=== PATIENT | male | born 1960 | race Caucasian/White ===

== ENCOUNTER 2017-08-11 13:52 | Emergency (ER) | payer OTHER, SELFPAY | END 2017-08-11 16:11 | disposition home or self-care (01) | PROVIDERS: Emergency Provider Emergency Medicine; PCP Internal Medicine; Visit Provider Emergency Medicine | DX: J41.1 Mucopurulent chronic bronchitis (principal) | CPT/HCPCS: 71010; 71045; 80053; 83880; 84484; 85025; 85610; 85730; 93005; 93010; 94640; 94664; 96374; 99058; 99284; J2930; J7613 ==

== ENCOUNTER 2017-11-06 12:38 | Emergency (ER) | payer OTHER, SELFPAY ==
[2017-11-06 12:45] VITALS: BP 196/92; PULSE 99; RESP 18; TEMP 36.9; O2SAT 99
--- NOTE | 2017-11-06 13:12 | ED.MALEGU ---
HPI - Male Genitourinary General Chief complaint: Urogenital-Male Stated complaint: RIGHT FLANK PAIN,THINKS KIDNEY STONES Time Seen by Provider: 11/06/17 12:47 Source: patient Mode of arrival: ambulatory Limitations: no limitations History of Present Illness HPI Narrative: Patient is a 57-year-old male with a stated history of multiple kidney stones (greater than 60) in his life. He states that on his last CT scan he had multiple renal stones. He states that he has had right-sided pain consistent with prior kidney stones for the past 10 days. Has been taking Advil at home with only minimal relief. He states that this morning he urinated and had hesitancy and worsening of the pain. He states this feels just like his prior kidney stones. No fevers. He has had to have lithotripsy and retrieval in the past. He states his last kidney stone that he passed was in July this year. Related Data Home Medications Medication Instructions Recorded Confirmed docusate sodium 250 mg PO QDAY #0 08/03/17 indomethacin 75 mg PO BID #0 08/03/17 lactulose 10 gm PO PRN PRN #0 08/03/17 omeprazole magnesium [Prilosec OTC] 20 mg PO QDAY #0 08/03/17 oxycodone-acetaminophen [Percocet] 2 PO AMCC #0 08/03/17 Previous Rx's Medication Instructions Recorded albuterol sulfate [Ventolin HFA] 0 puff INH Q4HP PRN #1 ea 08/11/17 doxycycline hyclate 100 mg PO Q12H #14 cap 08/11/17 prednisone 40 mg PO Q DAY 4 Days #0 tab 08/11/17 ketorolac 10 mg PO Q4-6H PRN #16 tab 11/06/17 Allergies Allergy/AdvReac Type Severity Reaction Status Date / Time No Known Drug Allergies Allergy Verified 11/06/17 12:48 Review of Systems Constitutional Denies fatigue, Denies fever(s) and Denies headache(s) ENT Ears, Nose, Mouth, and Throat: Denies vertigo and Denies headache(s) Cardiovascular Denies chest pain, Denies syncope and Denies dyspnea Respiratory Denies dyspnea Gastrointestinal Gastrointestinal: Denies abdominal pain, Denies constipation, Denies diarrhea, Denies nausea and Denies vomiting Genitourinary Reports dysuria, Reports flank pain, Reports urinary hesitancy, Denies urinary incontinence and Reports urinary urgency Musculoskeletal Denies myalgias and Denies arthralgias Integumentary/Breasts Denies lesions and Denies rash Neurologic Denies vertigo, Denies syncope and Denies headache(s) Endocrine Denies fatigue Hematologic/Lymphatic Denies easy bleeding and Denies easy bruising [facility] Social History Smoking Status: Current every day smoker Exam Initial Vital Signs Initial Vital Signs: Vital Signs Temperature 98.5 F 11/06/17 12:45 Pulse Rate 99 H 11/06/17 12:45 Respiratory Rate 18 11/06/17 12:45 Blood Pressure 196/92 H 11/06/17 12:45 Pulse Oximetry 99 11/06/17 12:45 Const General: cooperative and healthy appearing Orientation: alert, awake and oriented x3 HENMT Head: normal to inspection, normocephalic and atraumatic Resp Effort & Inspection: normal respiratory effort Auscultation: clear to auscultation bilaterally Cardio Rate: regular rate Rhythm: regular rhythm GI Inspection: normal to inspection and non-distended Palpation: soft, No firm and No tender Back/Spine/Pelvis Back: CVA tenderness right Skin General: no rashes or lesions noted Lesions: no lesions Rashes: no rashes Neuro General: alert, awake and oriented x3 Cognition: normal cognition Speech: speech normal Extrem General: normal to inspection and capillary refill normal Psych Appearance: grossly normal and well kempt Course Orders Ordered: ED Orders 11/06/17 13:00 Basic Metabolic Panel Stat Discontinued Medications Lidocaine HCl 5.4 ml/ Sodium (Chloride) 55.4 mls @ 332.4 mls/hr IV NOW ONE Stop: 11/06/17 12:50 Last Infusion: 11/06/17 13:51 Dose: 0 mls/hr Admin: 11/06/17 13:22 Dose: 332.4 mls/hr Sodium Chloride (Normal Saline 0.9%) 1,000 mls @ 1,000 mls/hr IV BOLUS ONE Stop: 11/06/17 13:49 Last Admin: 11/06/17 13:22 Dose: 1,000 mls/hr Ketorolac Tromethamine (Toradol) 30 mg IV NOW ONE Stop: 11/06/17 13:25 Last Admin: 11/06/17 13:50 Dose: 30 mg Vital Signs - 8 hr 11/06/17 12:45 11/06/17 13:39 Temperature 98.5 F Pulse Rate 99 H 67 Respiratory Rate 18 12 Blood Pressure 196/92 H Blood Pressure [Left Arm] 157/81 H Pulse Oximetry 99 97 MDM - Male Genitourinary Lab Data Attestation: I reviewed the patient's lab results. Result diagrams: 11/06/17 13:00 Lab Results 11/06/17 Range/Units 13:00 Sodium 143 (137-145) mmol/L Potassium 4.1 (3.4-5.1) mmol/L Chloride 107 (98-107) mmol/L Carbon Dioxide 27 (22-32) mmol/L BUN 19 (9-20) mg/dL Creatinine 1.00 (0.66-1.25) mg/dL Estimated GFR > 60.0 (>60) mL/min BUN/Creatinine Ratio 19.0 (6-22) Glucose 122 H (70-100) mg/dL Calcium 9.5 (8.4-10.2) mg/dL [facility] Narrative Medical decision making narrative: Patient reports a great improvement of his pain after the lidocaine and the Toradol. Creatinine is unremarkable. Urine shows no signs of infection. Patient states that he has had problems with opioids in the past. He was requesting the oral Toradol. He states he can get a follow-up with his primary doctor this week. He was given return precautions. He expressed understanding and agreement with plan. Discharge Plan Departure Patient Disposition: Home, Self-Care Clinical Impression: Renal colic Instructions: Kidney Stones (Alternative Therapy), DI for Kidney Stones Activity Restrictions/Additional Instructions: Take all of the medication as directed. Call your primary care doctor for a follow-up this week. Return to the emergency department for any new symptoms, fevers, inability to urinate, uncontrolled pain, or any other concerning symptoms. Prescriptions: New ketorolac 10 mg tablet 10 mg PO Q4-6H PRN (Reason: pain) Qty: 16 RF: 0 No Action oxycodone-acetaminophen [Percocet] 7.5 MG/325 MG tablet 2 PO AMCC Qty: 0 RF: 0 docusate sodium 250 MG capsule 250 mg PO QDAY Qty: 0 RF: 0 indomethacin 75 MG capsule, extended release 75 mg PO BID Qty: 0 RF: 0 lactulose 10 GM/15 ML solution 10 gm PO PRN PRNQty: 0 RF: 0 omeprazole magnesium [Prilosec OTC] 20 MG tablet,delayed release (DR/EC) 20 mg PO QDAY Qty: 0 RF: 0 doxycycline hyclate 100 MG capsule 100 mg PO Q12H Qty: 14 RF: 0 prednisone 20 MG tablet 40 mg PO Q DAY 4 Days Qty: 0 RF: 0 albuterol sulfate [Ventolin HFA] 90 MCG/PUFF HFA aerosol inhaler INH Q4HP PRNQty: 1 RF: 0
[2017-11-06 13:14] LABS: Blood Urea Nitrogen 19 mg/dL (9-20); Calcium 9.5 mg/dL (8.4-10.2); Carbon Dioxide 27 mmol/L (22-32); Chloride 107 mmol/L (98-107); Estimated Glomerular Filt Rate > 60.0 mL/min (>60); Glucose 122 mg/dL (70-100); HEMOLYSIS < 15 (0-50); Potassium 4.1 mmol/L (3.4-5.1); Sodium 143 mmol/L (137-145)
[2017-11-06] MEDS: SODIUM CHLORIDE 0.9% 1,000 ML 1000 ML IV (13:22)
[2017-11-06] MEDS: LIDOCAINE 2% 5.4 ML in SODIUM CHLORIDE 0.9% 50 ML 332.4 ML IV (13:22)
[2017-11-06 13:39] VITALS: BP 157/81; PULSE 67; RESP 12; O2SAT 97
[2017-11-06] MEDS: KETOROLAC 60 MG/2 ML VIAL 30 MG IV (13:50)
--- NOTE | 2017-11-06 13:55 | PC.NURSE ---
pain re-assessed -06/04
[2017-11-06 14:30] VITALS: BP 162/84; PULSE 72; RESP 17; O2SAT 96
[2017-11-06 14:35] VITALS: BP 162/84; PULSE 79; RESP 12; O2SAT 97
== END 2017-11-06 14:30 | disposition home or self-care (01) ==
PROVIDERS: Emergency Provider Emergency Medicine; PCP Internal Medicine
DX: N23 Unspecified renal colic (principal)
CPT/HCPCS: 36591; 80048; 81003; 96361; 96365; 96375; 99283; 99284; J1885

== ENCOUNTER 2017-11-14 12:53 | Emergency (ER) | payer OTHER, SELFPAY ==
[2017-11-14 12:57] VITALS: BP 166/90; PULSE 82; RESP 18; TEMP 36.9; O2SAT 99; BMI 24.4
--- NOTE | 2017-11-14 13:04 | DI.RAD.S_ITS ---
PROCEDURE: XR CHEST 2V INDICATIONS: chest pain TECHNIQUE: 2 views of the chest were acquired. COMPARISON: [facility], CHEST 1 VIEW, 08/11/2017, 14:17. [facility], CHEST 1 VIEW, 08/24/2016, 1:40. FINDINGS: Surgical changes and devices: None. Lungs and pleura: No pleural effusions or pneumothorax. Lungs are clear. Mediastinum: Mediastinal contours are normal. Heart size is normal. Bones and chest wall: No suspicious bony abnormalities. Soft tissues appear unremarkable. IMPRESSION: No radiographic evidence of acute cardiopulmonary pathology. Dictated by: Darrell Rai M.D. on 11/14/2017 at 13:20 Approved by: Darrell Rai M.D. on 11/14/2017 at 13:21
[2017-11-14 13:44] LABS: Add Manual Diff / Slide Review NO; Basophils Percent Auto 0.7 % (0-2); Eosinophils Percent Auto 1.5 % (2-4); Hematocrit 43.5 % (41-53); Hemoglobin 15.3 g/dL (13.5-17.5); Lymphocytes Percent Auto 22.4 % (25-40); Mean Corpuscular HGB Conc 35.1 % (30-36); Mean Corpuscular Hemoglobin 34.1 PG (26-34); Mean Corpuscular Volume 97.3 fL (80-100); Neutrophils Absolute Auto 5000 /uL (3000-5900); Neutrophils Percent Auto 65.4 % (50-75); Platelet Count 284 X10^3/uL (150-400); Red Blood Cell Count 4.47 X10^6/uL (4.5-5.9); Red Cell Distribution Width 13.2 % (11.6-14.8); White Blood Cell Count 7.6 X10^3/uL (4.5-11.0)
[2017-11-14 13:51] LABS: Prothrombin Time 10.4 SECONDS (10.1-12.7)
[2017-11-14 13:54] LABS: PTT Partial Thromboplastin Tim 33 SECONDS (26.4-36.2)
[2017-11-14 13:55] LABS: Alanine Aminotransferase 27 IU/L (21-72); Albumin 4.2 g/dL (3.5-5.0); Albumin Globulin Ratio 1.4 (1.0-2.8); Alkaline Phosphatase 77 U/L (38-126); Aspartate Aminotransferase 20 IU/L (17-59); Bilirubin Total 0.4 mg/dL (0.2-1.3); Blood Urea Nitrogen 27 mg/dL (9-20); Calcium 9.5 mg/dL (8.4-10.2); Carbon Dioxide 27 mmol/L (22-32); Chloride 109 mmol/L (98-107); Creatine Kinase 118 U/L (55-170); Estimated Glomerular Filt Rate > 60.0 mL/min (>60); Globulin 2.9 g/dL (1.7-4.1); Glucose 95 mg/dL (70-100); Lipase 130 U/L (23-300); Potassium 4.6 mmol/L (3.4-5.1); Sodium 142 mmol/L (137-145); Total Protein 7.1 g/dL (6.3-8.2)
[2017-11-14 14:08] LABS: Troponin I < 0.012 ng/mL (0.01-0.034)
[2017-11-14 14:11] LABS: CKMB % Relative Index 1.1 % (1.5-5.0); Creatine Kinase MB 1.26 ng/mL (<2.37); HEMOLYSIS 16 (0-50)
[2017-11-14 14:29] VITALS: BP 141/91; PULSE 67; RESP 16; O2SAT 97
[2017-11-14] MEDS: ASPIRIN 81 MG TAB 324 MG PO (14:47)
[2017-11-14 14:48] VITALS: BP 139/120; PULSE 82
[2017-11-14] MEDS: NITROGLYCERIN 0.4 MG SL TAB SL (14:48)
--- NOTE | 2017-11-14 15:14 | PC.NURSE ---
no pain improvement with nitro
[2017-11-14 16:00] VITALS: BP 134/68; PULSE 59; RESP 15; O2SAT 98
[2017-11-14] MEDS: MAG HYDROX/ALUMINUM/SIMETH SUS 20 ML, LIDOCAINE VISCOUS 2% 15 ML PO (16:00)
[2017-11-14 16:37] LABS: Troponin I < 0.012 ng/mL (0.01-0.034)
--- NOTE | 2017-11-14 17:50 | ED_ITS ---
HPI - Chest Pain General Chief Complaint: Chest Pain Stated Complaint: chest pain History of Present Illness HPI narrative: HPI 57-year-old male smoker with HTN and COPD presents for evaluation of substernal squeezing type chest discomfort along with left shoulder pain that began this morning and is persistent without clearly identifiable provoking or relieving factors. Patient denies recent immobilization, leg trauma, estrogen use, surgery in the last four weeks, hemoptysis, or malignancy in the last 6 months. M/S/F/SocHx notable for: Smoker, ureterolithiasis, HTN, chest wall muscle strain , UTI, sepsis, pyelonephritis, COPD; remainder reviewed with patient and in chart. ROS: Negative constitutional, eye, cardiovascular, pulmonary, GI, , MSK, skin , neurologic, psychiatric, endocrine unless noted in the HPI. Exam Gen: Pleasant, non-toxic appearing, resting comfortably. HEENT: NC, AT, PEERL, EOMI, nicotine stains on kemp. Resp: Clear to auscultation bilaterally, normal work of breathing. Card: RRR with no M/R/G, no crackles in lung bases, no pedal edema, no JVD appreciated. GI: NT/ND Vascular: Both ankles, calves, and thighs of equal size, no calf tenderness to palpation bilaterally. MSK: No chest wall TTP. No visible deformities, strength and tone WNL. Skin: Normal color with no visible lesions. Neuro: AO x 3, no facial asymmetry, vision and hearing WNL. Psych: Mood and affect appropriate. Labs / Imaging (pertinent): WBC 7.6, Hb 15.3, Na 142, K 4.6, lipase 130. Troponin (1:35 pm) <0.012, troponin (3:55 PM) <0.012 EKG: SR at 71 bpm, no RI segment depressions, no new ST segment changes, new LBBB, or T-wave changes that would suggest acute ischemia. CXR: No acute cardiopulmonary disease process. MDM Previous chart, nursing note, and vitals reviewed. A: 57-year-old male smoker with HTN and COPD presents for evaluation of substernal squeezing type chest discomfort along with left shoulder pain that began this morning and is persistent without clearly identifiable provoking or relieving factors. DDx and Evaluation: * ACS - doubt ACS given a non-ischemic EKG and negative serial troponins. * UA - high risk history, HEART score 4 (Hx - 2, EKG - 0, age - 1, risk factors - 1, troponin - 0; 30 day MACE: 12 to 16.6%). * Pericarditis - consider pericarditis unlikely given the lack of RI segment depressions as well as the absence of diffuse ST-segment elevations, lack of reduction of pain when supine, and lack of a friction rub. * Myocarditis - unlikely given the negative troponin and an EKG without characteristic RI-segment or ST-segment changes. * Dissection - dissection is unlikely given symptoms, and lack of mediastinal widening. * PE - low clinical suspicion given history and alternate diagnosis, further risk stratification (e.g.) Well's not indicated. * Mediastinal Air - no evidence by CXR or auscultation. * Pneumothorax - no evidence by CXR or physical exam. * MSK - doubt given lack of reproducibility on exam. * Endocarditis - no identifiable risk factors, patient afebrile, no new murmurs appreciated on exam; doubt. * GI (Esophageal rupture, GERD) - esophageal rupture effectively excluded given the lack of mediastinal widening, non-toxic appearance, and lack of identifiable risk factors. While not definitively excluded, further evaluation of GERD is deferred to an outpatient setting. ED Course: Patient given ASA and sublingual nitroglycerin. Denies change in symptoms with nitroglycerin. Given a GI cocktail, noted possible improvement in symptoms, endorsed mild to moderate ongoing squeezing left-sided chest discomfort.. Vital signs remained stable and within clinically acceptable limits. Disposition: The patient was discharged against medical advice. The patient had capacity as they were clinically sober, free from distracting injury, and they appear to have intact insight and judgment and reason and in my opinion have the capacity to make decisions. I am concerned about the patient's ongoing squeezing substernal chest pain, left shoulder pain, and multiple risk factors for cardiovascular disease. I am concerned that this represents unstable angina and can lead to imminent or permanent disability. At the time of discharge , the patient's evaluation is limited as he is declining admission for cardiac stress test. The current plan is observation admission cardiac stress. Extensive discussion was had with the patient on multiple occasions regarding the risks and benefits and the patient made an informed decision to be discharged and to follow up with his primary care provider for further evaluation care. Patient was prescribed 81 mg aspirin daily and sublingual nitroglycerin. Impression: Chest Pain. (please reference below for remainder of encounter information) Related Data Home Medications Medication Instructions Recorded Confirmed docusate sodium 250 mg PO QDAY #0 08/03/17 11/14/17 indomethacin 75 mg PO BID #0 08/03/17 11/14/17 lisinopril 20 mg PO DAILY 11/14/17 11/14/17 tamsulosin 0.4 mg PO DAILY 11/14/17 11/14/17 Allergies Allergy/AdvReac Type Severity Reaction Status Date / Time No Known Drug Allergies Allergy Verified 11/14/17 13:01 [facility] Social History Smoking Status: Current every day smoker Exam Initial Vital Signs Initial Vital Signs: Vital Signs Temperature 98.4 F 11/14/17 12:57 Pulse Rate 82 11/14/17 12:57 Respiratory Rate 18 11/14/17 12:57 Blood Pressure 166/90 H 11/14/17 12:57 Pulse Oximetry 99 11/14/17 12:57 Course Orders Ordered: ED Orders 11/14/17 13:04 XR chest 2V Stat EKG-12 Lead Stat 11/14/17 13:35 Complete Blood Count AUTO DIFF Stat Comprehensive Metabolic Panel Stat Lipase Stat Partial Thromboplastin Time Stat Prothrombin Time INR Stat Troponin & CK Cardiac Panel Stat 11/14/17 15:55 Troponin I Stat Nitroglycerin (Nitrostat) 0.4 mg SL [id number] PRN PRN Reason: Chest Pain Last Admin: 11/14/17 14:48 Dose: 0.4 mg Discontinued Medications Aspirin (Aspirin Chew) 324 mg PO NOW ONE Stop: 11/14/17 14:39 Last Admin: 11/14/17 14:47 Dose: 324 mg Al Hydrox/Mg Hydrox/Simethicone 20 ml/ Lidocaine HCl 15 ml 0 ml PO NOW ONE Stop: 11/14/17 15:39 Last Admin: 11/14/17 16:00 Dose: 15 ml Vital Signs - 8 hr 11/14/17 12:57 11/14/17 14:29 11/14/17 14:48 Temperature 98.4 F Pulse Rate 82 67 82 Respiratory Rate 18 16 Blood Pressure 166/90 H 139/120 H Blood Pressure [Left Arm] 141/91 H Pulse Oximetry 99 97 11/14/17 16:00 Temperature Pulse Rate 59 L Respiratory Rate 15 Blood Pressure Blood Pressure [Left Arm] 134/68 H Pulse Oximetry 98 MDM - Chest Pain Lab Data Result diagrams: 11/14/17 13:35 11/14/17 13:35 Lab Results 11/14/17 11/14/17 11/14/17 Range/Units 13:35 13:35 13:35 WBC 7.6 (4.5-11.0) X10^3/uL RBC 4.47 L (4.5-5.9) X10^6/uL Hgb 15.3 (13.5-17.5) g/dL Hct 43.5 (41-53) % MCV 97.3 (80-100) fL MCH 34.1 H (26-34) PG MCHC 35.1 (30-36) % RDW 13.2 (11.6-14.8) % Plt Count 284 (150-400) X10^3/uL Neut % (Auto) 65.4 (50-75) % Lymph % (Auto) 22.4 L (25-40) % Cloud % (Auto) 10.0 (3-14) % Eos % (Auto) 1.5 L (2-4) % Baso % (Auto) 0.7 (0-2) % Neut # (Auto) 5000 (4758-3361) /uL PT 10.4 (10.1-12.7) SECONDS INR 1.0 (0.9-1.3) APTT 33 (26.4-36.2) SECONDS Sodium 142 (137-145) mmol/L Potassium 4.6 (3.4-5.1) mmol/L Chloride 109 H (98-107) mmol/L Carbon Dioxide 27 (22-32) mmol/L BUN 27 H (9-20) mg/dL Creatinine 0.90 (0.66-1.25) mg/dL Estimated GFR > 60.0 (>60) mL/min BUN/Creatinine Ratio 30.0 H (6-22) Glucose 95 (70-100) mg/dL Calcium 9.5 (8.4-10.2) mg/dL Total Bilirubin 0.4 (0.2-1.3) mg/dL AST 20 (17-59) IU/L ALT 27 (21-72) IU/L Alkaline Phosphatase 77 (38-126) U/L Total Creatine Kinase 118 (55-170) U/L CK-MB (CK-2) 1.26 (<2.37) ng/mL CK-MB (CK-2) Rel Index 1.1 L (1.5-5.0) % Troponin I < 0.012 (0.01-0.034) ng/mL Total Protein 7.1 (6.3-8.2) g/dL Albumin 4.2 (3.5-5.0) g/dL Globulin 2.9 (1.7-4.1) g/dL Albumin/Globulin Ratio 1.4 (1.0-2.8) Lipase 130 (23-300) U/L 11/14/17 Range/Units 15:55 WBC (4.5-11.0) X10^3/uL RBC (4.5-5.9) X10^6/uL Hgb (13.5-17.5) g/dL Hct (41-53) % MCV (80-100) fL MCH (26-34) PG MCHC (30-36) % RDW (11.6-14.8) % Plt Count (150-400) X10^3/uL Neut % (Auto) (50-75) % Lymph % (Auto) (25-40) % Cloud % (Auto) (3-14) % Eos % (Auto) (2-4) % Baso % (Auto) (0-2) % Neut # (Auto) (3846-5433) /uL PT (10.1-12.7) SECONDS INR (0.9-1.3) APTT (26.4-36.2) SECONDS Sodium (137-145) mmol/L Potassium (3.4-5.1) mmol/L Chloride (98-107) mmol/L Carbon Dioxide (22-32) mmol/L BUN (9-20) mg/dL Creatinine (0.66-1.25) mg/dL Estimated GFR (>60) mL/min BUN/Creatinine Ratio (6-22) Glucose (70-100) mg/dL Calcium (8.4-10.2) mg/dL Total Bilirubin (0.2-1.3) mg/dL AST (17-59) IU/L ALT (21-72) IU/L Alkaline Phosphatase (38-126) U/L Total Creatine Kinase (55-170) U/L CK-MB (CK-2) (<2.37) ng/mL CK-MB (CK-2) Rel Index (1.5-5.0) % Troponin I < 0.012 (0.01-0.034) ng/mL Total Protein (6.3-8.2) g/dL Albumin (3.5-5.0) g/dL Globulin (1.7-4.1) g/dL Albumin/Globulin Ratio (1.0-2.8) Lipase (23-300) U/L Discharge Plan Departure Prescriptions: No Action docusate sodium 250 MG capsule 250 mg PO QDAY Qty: 0 RF: 0 indomethacin 75 MG capsule, extended release 75 mg PO BID Qty: 0 RF: 0 lisinopril 20 mg Tablet 20 mg PO DAILY RF: 0 tamsulosin 0.4 mg capsule,extended release 24hr 0.4 mg PO DAILY RF: 0
[2017-11-14 18:30] VITALS: BP 144/95
[2017-11-14 18:47] VITALS: BP 144/95; PULSE 75; RESP 20; TEMP 36.7; O2SAT 98
== END 2017-11-14 18:49 | disposition left against medical advice (07) ==
PROVIDERS: Emergency Provider Emergency Medicine; Family Provider Internal Medicine; PCP Internal Medicine
DX: R07.9 Chest pain, unspecified (principal)
CPT/HCPCS: 36415; 36591; 71046; 80053; 82550; 82553; 83690; 84484; 85025; 85610; 85730; 93005; 99283; 99285

== ENCOUNTER 2018-05-21 17:51 | Emergency (ER) | payer OTHER, SELFPAY ==
[2018-05-21 17:59] VITALS: PULSE 95; RESP 20; TEMP 36.7; O2SAT 98
[2018-05-21 18:04] VITALS: BP 158/90
[2018-05-21 18:06] LABS: Bacteria Urine None Seen
--- NOTE | 2018-05-21 18:10 | DI.CT.S_ITS ---
PROCEDURE: CT KIDNEY URETER BLADDER (KUB) INDICATIONS: R flank pain, hx stones TECHNIQUE: Noncontrast 5 mm thick sections acquired from the diaphragms to the symphysis. 5 mm thick coronal and sagittal reformats were then performed. For radiation dose reduction, the following was used: automated exposure control, adjustment of mA and/or kV according to patient size. COMPARISON: [facility], CT, KIDNEY/ URETER/BLADDER, 08/03/2017, 9:11. [facility], CT, KIDNEY/ URETER/BLADDER, 07/25/2017, 11:39. FINDINGS: Image quality: Excellent. Lung bases: Lung bases are clear. Heart size is normal. Urinary system: There are bilateral renal calculi with the largest in the right kidney measuring 6 mm in the superior pole and the largest stone in the left kidney measuring 6 mm in the inferior pole. There is a 4 x 5 mm stone in the mid right ureter with CT density 559 HU, probably a struvite stone or cystine stone. There is mild right hydronephrosis and perinephric stranding. No left ureteral stones. Both kidneys are normal in size. Bladder wall thickness is normal; no calcified bladder stones. Prostate is enlarged. Other solid organs: Liver is normal in size. Gallbladder is normal. Pancreas is normal in contours. Spleen is normal in size. There is 1.0 x 2.2 cm left adrenal nodule with CT density 7.8 HU, compatible with a benign adrenal adenoma. It appears unchanged from the last exam. Peritoneum and bowel: Unenhanced bowel loops demonstrate normal wall thickness and caliber. There are multiple colonic diverticula. Appendix is normal. No free fluid or air. Nodes and vessels: No retroperitoneal or mesenteric adenopathy by size criteria. Aorta and inferior vena cava are normal in caliber. Abdominal wall: No ventral hernias. Pelvis: No free pelvic fluid. No inguinal hernias or adenopathy. Bones: No suspicious bony lesions. No vertebral body compression fractures. This moderate degenerative disc disease at L4-L5. IMPRESSION: 1. A 4 x 5 mm obstructing stone is present in the mid right ureter. There is mild right hydronephrosis and perinephric stranding. 2. Bilateral renal calculi are present. 3. Diverticulosis without acute diverticulitis. 4. Left adrenal adenoma. Dictated by: Yanci Zhang M.D. on 05/21/2018 at 18:51 Approved by: Yanci Zhang M.D. on 05/21/2018 at 19:02
--- NOTE | 2018-05-21 18:17 | ED.ABDPAIN ---
HPI - Abdominal Pain <DEE DEE Camara - Last Filed: 05/21/18 21:07> General Chief Complaint: Abdominal Pain Stated Complaint: right side flank pain Time Seen by Provider: 05/21/18 18:00 Source: patient Mode of arrival: ambulatory Limitations: no limitations History of Present Illness HPI narrative: Patient is a 58-year-old male active smoker with history of kidney stones who presents by himself with right flank pain. He states he has kidney stone number 64. He has had right flank pain for the past 2-3 hours. He took ibuprofen at about noon today. He denies any fever, nausea vomiting or diarrhea. The pain in his right flank was radiating around to his right groin. It no longer is radiating. He denies any chest pain or shortness of breath. He denies any blood in his urine. He states that this presentation is very similar to his previous kidney stones. He denies any dysuria urgency or frequency. Related Data Home Medications Medication Instructions Recorded Confirmed docusate sodium 250 mg PO QDAY #0 08/03/17 11/14/17 indomethacin 75 mg PO BID #0 08/03/17 11/14/17 lisinopril 20 mg PO DAILY 11/14/17 11/14/17 tamsulosin 0.4 mg PO DAILY 11/14/17 11/14/17 Previous Rx's Medication Instructions Recorded aspirin 81 mg PO DAILY #10 tab 11/14/17 nitroglycerin 0.4 mg SL Q5-15M PRN #14 tab 11/14/17 ondansetron 4 mg PO TID-QID PRN #20 tab 05/21/18 oxycodone-acetaminophen [Percocet] 1 tab PO Q4-6H PRN #20 tab 05/21/18 Allergies Allergy/AdvReac Type Severity Reaction Status Date / Time No Known Drug Allergies Allergy Verified 11/14/17 13:01 Review of Systems <DEE DEE Camara - Last Filed: 05/21/18 21:07> Review of Systems GENERAL: Denies chills, fatigue, malaise, fever, sweats. HEENT: Denies sinus pain, ear pain, sore throat, difficulty swallowing, dizziness. RESPIRATORY: Denies dyspnea, cough, wheezing, hemoptysis, sputum. CARDIOVASCULAR: Denies chest pain, palpitations, orthopnea, edema, GASTROINTESTINAL: See HPI : See HPI MUSCULOSKELETAL: denies weakness, joint pain, or bony pain SKIN: Denies rash, skin lesions, or other NEUROLOGIC: Denies weakness, headache, numbness, change in speech, confusion, seizures, incoordination. PSYCHIATRIC: No concerning psychosocial issues. 12 point review of systems is negative except for those stated above Exam <Ana Luisa MADDIE Kaplan-BC - Last Filed: 05/21/18 21:07> Narrative Exam Narrative: GENERAL: This is a well-nourished, well-developed patient, in distress. HEAD: Atraumatic. Normocephalic. No temporal or scalp tenderness. EYES: Pupils equal round and reactive. Extraocular motions intact. No scleral icterus. No injection or drainage. ENT: Nose without bleeding, purulent drainage or septal hematoma. Throat without erythema, tonsillar hypertrophy or exudate. Uvula midline. Airway patent. NECK: Trachea midline. No JVD or lymphadenopathy. Supple, nontender, no meningeal signs. CARDIOVASCULAR: Regular rate and rhythm without murmurs, gallops, or rubs. RESPIRATORY: Clear to auscultation. Breath sounds equal bilaterally. No wheezes, rales, or rhonchi. No cough. No increased respiratory effort. GASTROINTESTINAL: Abdomen soft, non-tender, nondistended. No hepato-splenomegaly, or palpable masses. No guarding. Active bowel sounds all 4 quadrants. EXTREMITIES: No clubbing, cyanosis, or edema. No joint tenderness, effusion, or edema noted. BACK: Nontender without deformity or crepitance. Flank tenderness on right side. No flank tenderness on left side. NEURO: AOx3. SKIN: No rash or erythema. Initial Vital Signs Initial Vital Signs: Vital Signs Temperature 98.0 F 05/21/18 17:59 Pulse Rate 95 H 05/21/18 17:59 Respiratory Rate 20 05/21/18 17:59 Pulse Oximetry 98 05/21/18 17:59 <Kevin Wan MD - Last Filed: 05/22/18 00:45> Initial Vital Signs Initial Vital Signs: Vital Signs Temperature 98.0 F 05/21/18 17:59 Pulse Rate 95 H 05/21/18 17:59 Respiratory Rate 20 05/21/18 17:59 Pulse Oximetry 98 05/21/18 17:59 Course <Ana Luisa Kaplan, CAR MANAGER-BC - Last Filed: 05/21/18 21:07> Orders Ordered: ED Orders 05/21/18 17:00 Urine Microscopic Stat 05/21/18 18:10 CT kidney ureter bladder (KUB) Stat 05/21/18 18:25 Complete Blood Count AUTO DIFF Stat Comprehensive Metabolic Panel Stat Discontinued Medications Sodium Chloride (Normal Saline 0.9%) 1,000 mls @ 1,000 mls/hr IV BOLUS ONE Stop: 05/21/18 19:01 Last Infusion: 05/21/18 20:48 Dose: 0 mls/hr Admin: 05/21/18 18:23 Dose: 1,000 mls/hr Lidocaine HCl 5.4 ml/ Sodium (Chloride) 55.4 mls @ 332.4 mls/hr IV NOW ONE Stop: 05/21/18 18:45 Last Infusion: 05/21/18 20:48 Dose: 0 mls/hr Admin: 05/21/18 20:00 Dose: 332.4 mls/hr Ketorolac Tromethamine (Toradol) 30 mg IV NOW ONE Stop: 05/21/18 18:11 Last Admin: 05/21/18 18:23 Dose: 30 mg Ondansetron HCl (Zofran) 4 mg IV NOW ONE Stop: 05/21/18 18:11 Last Admin: 05/21/18 18:23 Dose: 4 mg Ondansetron HCl (Zofran Odt) 4 mg SL NOW ONE Stop: 05/21/18 20:25 Ondansetron HCl (Zofran Odt Prepack) 1 bottle MISC SEEINSTR ONE Stop: 05/21/18 20:39 Last Admin: 05/21/18 20:39 Dose: 1 bottle Oxycodone/Acetaminophen (Endocet 5/325 Prepack) 1 bottle MISC SEEINSTR ONE Stop: 05/21/18 20:25 Last Admin: 05/21/18 20:36 Dose: 1 bottle Vital Signs - 8 hr 05/21/18 17:59 05/21/18 18:04 05/21/18 19:39 Temperature 98.0 F Pulse Rate 95 H 78 Respiratory Rate 20 14 Blood Pressure Blood Pressure [Left Arm] 158/90 H 161/88 H Pulse Oximetry 98 97 05/21/18 20:00 05/21/18 20:51 Temperature Pulse Rate 77 84 Respiratory Rate 26 H 22 Blood Pressure 153/92 H Blood Pressure [Left Arm] 134/81 Pulse Oximetry 99 99 <Kevin Wan MD - Last Filed: 05/22/18 00:45> Orders Ordered: ED Orders 05/21/18 17:00 Urine Microscopic Stat 05/21/18 18:10 CT kidney ureter bladder (KUB) Stat 05/21/18 18:25 Complete Blood Count AUTO DIFF Stat Comprehensive Metabolic Panel Stat Discontinued Medications Sodium Chloride (Normal Saline 0.9%) 1,000 mls @ 1,000 mls/hr IV BOLUS ONE Stop: 05/21/18 19:01 Last Infusion: 05/21/18 20:48 Dose: 0 mls/hr Admin: 05/21/18 18:23 Dose: 1,000 mls/hr Lidocaine HCl 5.4 ml/ Sodium (Chloride) 55.4 mls @ 332.4 mls/hr IV NOW ONE Stop: 05/21/18 18:45 Last Infusion: 05/21/18 20:48 Dose: 0 mls/hr Admin: 05/21/18 20:00 Dose: 332.4 mls/hr Ketorolac Tromethamine (Toradol) 30 mg IV NOW ONE Stop: 05/21/18 18:11 Last Admin: 05/21/18 18:23 Dose: 30 mg Ondansetron HCl (Zofran) 4 mg IV NOW ONE Stop: 05/21/18 18:11 Last Admin: 05/21/18 18:23 Dose: 4 mg Ondansetron HCl (Zofran Odt) 4 mg SL NOW ONE Stop: 05/21/18 20:25 Ondansetron HCl (Zofran Odt Prepack) 1 bottle MISC SEEINSTR ONE Stop: 05/21/18 20:39 Last Admin: 05/21/18 20:39 Dose: 1 bottle Oxycodone/Acetaminophen (Endocet 5/325 Prepack) 1 bottle MISC SEEINSTR ONE Stop: 05/21/18 20:25 Last Admin: 05/21/18 20:36 Dose: 1 bottle Vital Signs - 8 hr 05/21/18 17:59 05/21/18 18:04 05/21/18 19:39 Temperature 98.0 F Pulse Rate 95 H 78 Respiratory Rate 20 14 Blood Pressure Blood Pressure [Left Arm] 158/90 H 161/88 H Pulse Oximetry 98 97 05/21/18 20:00 05/21/18 20:51 Temperature Pulse Rate 77 84 Respiratory Rate 26 H 22 Blood Pressure 153/92 H Blood Pressure [Left Arm] 134/81 Pulse Oximetry 99 99 MDM - Abdominal Pain <Ana Luisa Kaplan, CAR MANAGER-BC - Last Filed: 05/21/18 21:07> Lab Data Result diagrams: 05/21/18 18:25 05/21/18 18:25 Lab Results 05/21/18 05/21/18 05/21/18 Range/Units 17:00 18:25 18:25 WBC 9.6 (4.5-11.0) X10^3/uL RBC 4.71 (4.5-5.9) X10^6/uL Hgb 15.9 (13.5-17.5) g/dL Hct 45.8 (41-53) % MCV 97.4 (80-100) fL MCH 33.9 (26-34) PG MCHC 34.8 (30-36) % RDW 13.5 (11.6-14.8) % Plt Count 275 (150-400) X10^3/uL Neut % (Auto) 68.2 (50-75) % Lymph % (Auto) 18.5 L (25-40) % [place] % (Auto) 10.8 (3-14) % Eos % (Auto) 1.8 L (2-4) % Baso % (Auto) 0.7 (0-2) % Neut # (Auto) 6500 (0179-1675) /uL Lymph # (Auto) 1800 (4793-0424) /uL [place] # (Auto) 1000 H (0-900) /uL Eos # (Auto) 200 (0-450) /uL Baso # (Auto) 100 (0-100) /uL Sodium 139 (137-145) mmol/L Potassium 4.2 (3.4-5.1) mmol/L Chloride 106 (98-107) mmol/L Carbon Dioxide 23 (22-32) mmol/L BUN 20 (9-20) mg/dL Creatinine 1.00 (0.66-1.25) mg/dL Estimated GFR > 60.0 (>60) mL/min BUN/Creatinine Ratio 20.0 (6-22) Glucose 106 H (70-100) mg/dL Calcium 9.4 (8.4-10.2) mg/dL Total Bilirubin 0.2 (0.2-1.3) mg/dL AST 28 (17-59) IU/L ALT 26 (21-72) IU/L Alkaline Phosphatase 74 (38-126) U/L Total Protein 7.9 (6.3-8.2) g/dL Albumin 4.6 (3.5-5.0) g/dL Globulin 3.3 (1.7-4.1) g/dL Albumin/Globulin Ratio 1.4 (1.0-2.8) Urine RBC 0-1/hpf (0-5/HPF) Urine WBC 0-1/hpf (0-5/HPF) Urine Bacteria None seen (None) Ur Culture Indicated? Cult not indicated Micro UA Comment Microscopic normal Point of care testing: Urine Dip Bedside Urine Glucose Negative Bedside Urine Bilirubin - Negative Bedside Urine Ketone - Negative Urine Specific [place] 1.015 Bedside Urine Occult Blood +/- Bedside Urine pH 6.0 Bedside Urine Protein - Negative Bedside Urine Urobilinogen - Negative Bedside Urine Nitrite - Negative Bedside Urine Leukocytes +/- [address] KUB: Radiologist's impression: [place] [address] CT Scan Report Signed Patient: Joaquín Call CMR#: [id number] : 1960Acct:[id number] Age/Sex: 58 / MDate of Service: 05/21/18 Loc: ED Accession Number: [id number] Procedure: CT kidney ureter bladder (KUB) Ordering Provider: Ana Luisa Kaplan PROCEDURE: CT KIDNEY URETER BLADDER (KUB) INDICATIONS: R flank pain, hx stones TECHNIQUE: Noncontrast 5 mm thick sections acquired from the diaphragms to the symphysis. 5 mm thick coronal and sagittal reformats were then performed. For radiation dose reduction, the following was used: automated exposure control, adjustment of mA and/or kV according to patient size. COMPARISON: [facility], CT, KIDNEY/ URETER/BLADDER, 08/03/2017, 9:11. [facility], CT, KIDNEY/ URETER/BLADDER, 07/25/2017, 11:39. FINDINGS: Image quality: Excellent. Lung bases: Lung bases are clear. Heart size is normal. Urinary system: There are bilateral renal calculi with the largest in the right kidney measuring 6 mm in the superior pole and the largest stone in the left kidney measuring 6 mm in the inferior pole. There is a 4 x 5 mm stone in the mid right ureter with CT density 559 HU, probably a struvite stone or cystine stone. There is mild right hydronephrosis and perinephric stranding. No left ureteral stones. Both kidneys are normal in size. Bladder wall thickness is normal; no calcified bladder stones. Prostate is enlarged. Other solid organs: Liver is normal in size. Gallbladder is normal. Pancreas is normal in contours. Spleen is normal in size. There is 1.0 x 2.2 cm left adrenal nodule with CT density 7.8 HU, compatible with a benign adrenal adenoma. It appears unchanged from the last exam. Peritoneum and bowel: Unenhanced bowel loops demonstrate normal wall thickness and caliber. There are multiple colonic diverticula. Appendix is normal. No free fluid or air. Nodes and vessels: No retroperitoneal or mesenteric adenopathy by size criteria. Aorta and inferior vena cava are normal in caliber. Abdominal wall: No ventral hernias. Pelvis: No free pelvic fluid. No inguinal hernias or adenopathy. Bones: No suspicious bony lesions. No vertebral body compression fractures. This moderate degenerative disc disease at L4-L5. IMPRESSION: 1. A 4 x 5 mm obstructing stone is present in the mid right ureter. There is mild right hydronephrosis and perinephric stranding. 2. Bilateral renal calculi are present. 3. Diverticulosis without acute diverticulitis. 4. Left adrenal adenoma. Dictated by: Yanci Zhang M.D. on 05/21/2018 at 18:51 Approved by: Yanci Zhang M.D. on 05/21/2018 at 19:02 MDM Narrative Medical decision making narrative: Patient presents with right flank pain and concern for kidney stone. CT confirms a kidney stone in his right mid ureter that is obstructing at this time with mild hydronephrosis. The patient has a significant history of kidney stones and states he is comfortable with management of them. He was given Toradol and a lidocaine infusion in the emergency department for pain and stated that his pain was well controlled enough that he could drive home. His renal function is normal at this point time. I gave him pain and nausea medication. He states he will follow up with primary care provider tomorrow. He has no signs of infection in his urine at this point time according to his UA. He also has a normal WBC count. I discussed pushing fluids and strain his urine. I discussed return in the emergency department for any acute concerns and monitoring for signs and symptoms of infection including fever. Patient had no questions or concerns upon discharge. He is hemodynamically stable throughout stay in the emergency department. <Kevin Wan MD - Last Filed: 05/22/18 00:45> Lab Data Lab Results 05/21/18 05/21/18 05/21/18 Range/Units 17:00 18:25 18:25 WBC 9.6 (4.5-11.0) X10^3/uL RBC 4.71 (4.5-5.9) X10^6/uL Hgb 15.9 (13.5-17.5) g/dL Hct 45.8 (41-53) % MCV 97.4 (80-100) fL MCH 33.9 (26-34) PG MCHC 34.8 (30-36) % RDW 13.5 (11.6-14.8) % Plt Count 275 (150-400) X10^3/uL Neut % (Auto) 68.2 (50-75) % Lymph % (Auto) 18.5 L (25-40) % [place] % (Auto) 10.8 (3-14) % Eos % (Auto) 1.8 L (2-4) % Baso % (Auto) 0.7 (0-2) % Neut # (Auto) 6500 (5426-4807) /uL Lymph # (Auto) 1800 (0449-8015) /uL [place] # (Auto) 1000 H (0-900) /uL Eos # (Auto) 200 (0-450) /uL Baso # (Auto) 100 (0-100) /uL Sodium 139 (137-145) mmol/L Potassium 4.2 (3.4-5.1) mmol/L Chloride 106 (98-107) mmol/L Carbon Dioxide 23 (22-32) mmol/L BUN 20 (9-20) mg/dL Creatinine 1.00 (0.66-1.25) mg/dL Estimated GFR > 60.0 (>60) mL/min BUN/Creatinine Ratio 20.0 (6-22) Glucose 106 H (70-100) mg/dL Calcium 9.4 (8.4-10.2) mg/dL Total Bilirubin 0.2 (0.2-1.3) mg/dL AST 28 (17-59) IU/L ALT 26 (21-72) IU/L Alkaline Phosphatase 74 (38-126) U/L Total Protein 7.9 (6.3-8.2) g/dL Albumin 4.6 (3.5-5.0) g/dL Globulin 3.3 (1.7-4.1) g/dL Albumin/Globulin Ratio 1.4 (1.0-2.8) Urine RBC 0-1/hpf (0-5/HPF) Urine WBC 0-1/hpf (0-5/HPF) Urine Bacteria None seen (None) Ur Culture Indicated? Cult not indicated Micro UA Comment Microscopic normal Point of care testing: Urine Dip Bedside Urine Glucose Negative Bedside Urine Bilirubin - Negative Bedside Urine Ketone - Negative Urine Specific [place] 1.015 Bedside Urine Occult Blood +/- Bedside Urine pH 6.0 Bedside Urine Protein - Negative Bedside Urine Urobilinogen - Negative Bedside Urine Nitrite - Negative Bedside Urine Leukocytes +/- 15 Esterase Discharge Plan Departure Patient Disposition: Home Clinical Impression: Kidney stone on right side Discharge Date/Time: 05/21/18 20:53 Interventions: ED Discharge Assessment Last Done: 05/21/18 20:51 Instructions: Kidney Stones (Alternative Therapy), Kidney Stones -- Adult, DI for Kidney Stones Activity Restrictions/Additional Instructions: You have a kidney stone. Please push fluids, strain your urine and follow up with primary care provider. Please consider taking Flomax once a day for a week. I have not given you a prescription as you state of playing at home. I have given you pain medication as well as nausea medication. Please know that the pain medication can be sedating and constipating. Please follow-up with her primary care provider specially few do not passed the stone shortly. The stone is obstructing, which he state you have had before. Right now your urine does not have any signs of infection. Please monitor for fever, burning when your urinate etc. Prescriptions: New oxycodone-acetaminophen [Percocet] 5-325 mg tablet 1 tab PO Q4-6H PRN (Reason: pain) Qty: 20 RF: 0 ondansetron 4 mg tablet,disintegrating 4 mg PO TID-QID PRN (Reason: nausea and vomiting) Qty: 20 RF: 0 No Action docusate sodium 250 MG capsule 250 mg PO QDAY Qty: 0 RF: 0 indomethacin 75 MG capsule, extended release 75 mg PO BID Qty: 0 RF: 0 lisinopril 20 mg Tablet 20 mg PO DAILY RF: 0 tamsulosin 0.4 mg capsule,extended release 24hr 0.4 mg PO DAILY RF: 0 nitroglycerin 0.4 mg tablet, sublingual 0.4 mg SL Q5-15M PRN (Reason: chest pain) Qty: 14 RF: 0 aspirin 81 mg tablet,chewable 81 mg PO DAILY Qty: 10 RF: 0 Referrals: Daniella Sanchez MD [Primary Care Provider] - <Kevin Wan MD - Last Filed: 05/22/18 00:45> Cosign ED Attending Cosignature Attestation: I was in the ER at the time of this patient's treatment. I was available for verbal assistant winemaker or direct patient evaluation if needed. I agree with the evaluation and treatment plan.
--- NOTE | 2018-05-21 18:20 | ED_ITS ---
HPI - Abdominal Pain <DEE DEE Camara - Last Filed: 05/21/18 21:07> General Chief Complaint: Abdominal Pain Stated Complaint: right side flank pain Time Seen by Provider: 05/21/18 18:00 Source: patient Mode of arrival: ambulatory Limitations: no limitations History of Present Illness HPI narrative: Patient is a 58-year-old male active smoker with history of kidney stones who presents by himself with right flank pain. He states he has kidney stone number 64. He has had right flank pain for the past 2-3 hours. He took ibuprofen at about noon today. He denies any fever, nausea vomiting or diarrhea. The pain in his right flank was radiating around to his right groin. It no longer is radiating. He denies any chest pain or shortness of breath. He denies any blood in his urine. He states that this presentation is very similar to his previous kidney stones. He denies any dysuria urgency or frequency. Related Data Home Medications Medication Instructions Recorded Confirmed docusate sodium 250 mg PO QDAY #0 08/03/17 11/14/17 indomethacin 75 mg PO BID #0 08/03/17 11/14/17 lisinopril 20 mg PO DAILY 11/14/17 11/14/17 tamsulosin 0.4 mg PO DAILY 11/14/17 11/14/17 Previous Rx's Medication Instructions Recorded aspirin 81 mg PO DAILY #10 tab 11/14/17 nitroglycerin 0.4 mg SL Q5-15M PRN #14 tab 11/14/17 ondansetron 4 mg PO TID-QID PRN #20 tab 05/21/18 oxycodone-acetaminophen [Percocet] 1 tab PO Q4-6H PRN #20 tab 05/21/18 Allergies Allergy/AdvReac Type Severity Reaction Status Date / Time No Known Drug Allergies Allergy Verified 11/14/17 13:01 Review of Systems <DEE DEE Camara - Last Filed: 05/21/18 21:07> Review of Systems GENERAL: Denies chills, fatigue, malaise, fever, sweats. HEENT: Denies sinus pain, ear pain, sore throat, difficulty swallowing, dizziness. RESPIRATORY: Denies dyspnea, cough, wheezing, hemoptysis, sputum. CARDIOVASCULAR: Denies chest pain, palpitations, orthopnea, edema, GASTROINTESTINAL: See HPI : See HPI MUSCULOSKELETAL: denies weakness, joint pain, or bony pain SKIN: Denies rash, skin lesions, or other NEUROLOGIC: Denies weakness, headache, numbness, change in speech, confusion, seizures, incoordination. PSYCHIATRIC: No concerning psychosocial issues. 12 point review of systems is negative except for those stated above Exam <Ana Luisa MADDIE Kaplan-BC - Last Filed: 05/21/18 21:07> Narrative Exam Narrative: GENERAL: This is a well-nourished, well-developed patient, in distress. HEAD: Atraumatic. Normocephalic. No temporal or scalp tenderness. EYES: Pupils equal round and reactive. Extraocular motions intact. No scleral icterus. No injection or drainage. ENT: Nose without bleeding, purulent drainage or septal hematoma. Throat without erythema, tonsillar hypertrophy or exudate. Uvula midline. Airway patent. NECK: Trachea midline. No JVD or lymphadenopathy. Supple, nontender, no meningeal signs. CARDIOVASCULAR: Regular rate and rhythm without murmurs, gallops, or rubs. RESPIRATORY: Clear to auscultation. Breath sounds equal bilaterally. No wheezes , rales, or rhonchi. No cough. No increased respiratory effort. GASTROINTESTINAL: Abdomen soft, non-tender, nondistended. No hepato-splenomegaly , or palpable masses. No guarding. Active bowel sounds all 4 quadrants. EXTREMITIES: No clubbing, cyanosis, or edema. No joint tenderness, effusion, or edema noted. BACK: Nontender without deformity or crepitance. Flank tenderness on right side. No flank tenderness on left side. NEURO: AOx3. SKIN: No rash or erythema. Initial Vital Signs Initial Vital Signs: Vital Signs Temperature 98.0 F 05/21/18 17:59 Pulse Rate 95 H 05/21/18 17:59 Respiratory Rate 20 05/21/18 17:59 Pulse Oximetry 98 05/21/18 17:59 <Kevin Wan MD - Last Filed: 05/22/18 00:45> Initial Vital Signs Initial Vital Signs: Vital Signs Temperature 98.0 F 05/21/18 17:59 Pulse Rate 95 H 05/21/18 17:59 Respiratory Rate 20 05/21/18 17:59 Pulse Oximetry 98 05/21/18 17:59 Course <Ana Luisa Kaplan, STONER OUT-BC - Last Filed: 05/21/18 21:07> Orders Ordered: ED Orders 05/21/18 17:00 Urine Microscopic Stat 05/21/18 18:10 CT kidney ureter bladder (KUB) Stat 05/21/18 18:25 Complete Blood Count AUTO DIFF Stat Comprehensive Metabolic Panel Stat Discontinued Medications Sodium Chloride (Normal Saline 0.9%) 1,000 mls @ 1,000 mls/hr IV BOLUS ONE Stop: 05/21/18 19:01 Last Infusion: 05/21/18 20:48 Dose: 0 mls/hr Admin: 05/21/18 18:23 Dose: 1,000 mls/hr Lidocaine HCl 5.4 ml/ Sodium (Chloride) 55.4 mls @ 332.4 mls/hr IV NOW ONE Stop: 05/21/18 18:45 Last Infusion: 05/21/18 20:48 Dose: 0 mls/hr Admin: 05/21/18 20:00 Dose: 332.4 mls/hr Ketorolac Tromethamine (Toradol) 30 mg IV NOW ONE Stop: 05/21/18 18:11 Last Admin: 05/21/18 18:23 Dose: 30 mg Ondansetron HCl (Zofran) 4 mg IV NOW ONE Stop: 05/21/18 18:11 Last Admin: 05/21/18 18:23 Dose: 4 mg Ondansetron HCl (Zofran Odt) 4 mg SL NOW ONE Stop: 05/21/18 20:25 Ondansetron HCl (Zofran Odt Prepack) 1 bottle MISC SEEINSTR ONE Stop: 05/21/18 20:39 Last Admin: 05/21/18 20:39 Dose: 1 bottle Oxycodone/Acetaminophen (Endocet 5/325 Prepack) 1 bottle MISC SEEINSTR ONE Stop: 05/21/18 20:25 Last Admin: 05/21/18 20:36 Dose: 1 bottle Vital Signs - 8 hr 05/21/18 17:59 05/21/18 18:04 05/21/18 19:39 Temperature 98.0 F Pulse Rate 95 H 78 Respiratory Rate 20 14 Blood Pressure Blood Pressure [Left Arm] 158/90 H 161/88 H Pulse Oximetry 98 97 05/21/18 20:00 05/21/18 20:51 Temperature Pulse Rate 77 84 Respiratory Rate 26 H 22 Blood Pressure 153/92 H Blood Pressure [Left Arm] 134/81 Pulse Oximetry 99 99 <Kevin Wan MD - Last Filed: 05/22/18 00:45> Orders Ordered: ED Orders 05/21/18 17:00 Urine Microscopic Stat 05/21/18 18:10 CT kidney ureter bladder (KUB) Stat 05/21/18 18:25 Complete Blood Count AUTO DIFF Stat Comprehensive Metabolic Panel Stat Discontinued Medications Sodium Chloride (Normal Saline 0.9%) 1,000 mls @ 1,000 mls/hr IV BOLUS ONE Stop: 05/21/18 19:01 Last Infusion: 05/21/18 20:48 Dose: 0 mls/hr Admin: 05/21/18 18:23 Dose: 1,000 mls/hr Lidocaine HCl 5.4 ml/ Sodium (Chloride) 55.4 mls @ 332.4 mls/hr IV NOW ONE Stop: 05/21/18 18:45 Last Infusion: 05/21/18 20:48 Dose: 0 mls/hr Admin: 05/21/18 20:00 Dose: 332.4 mls/hr Ketorolac Tromethamine (Toradol) 30 mg IV NOW ONE Stop: 05/21/18 18:11 Last Admin: 05/21/18 18:23 Dose: 30 mg Ondansetron HCl (Zofran) 4 mg IV NOW ONE Stop: 05/21/18 18:11 Last Admin: 05/21/18 18:23 Dose: 4 mg Ondansetron HCl (Zofran Odt) 4 mg SL NOW ONE Stop: 05/21/18 20:25 Ondansetron HCl (Zofran Odt Prepack) 1 bottle MISC SEEINSTR ONE Stop: 05/21/18 20:39 Last Admin: 05/21/18 20:39 Dose: 1 bottle Oxycodone/Acetaminophen (Endocet 5/325 Prepack) 1 bottle MISC SEEINSTR ONE Stop: 05/21/18 20:25 Last Admin: 05/21/18 20:36 Dose: 1 bottle Vital Signs - 8 hr 05/21/18 17:59 05/21/18 18:04 05/21/18 19:39 Temperature 98.0 F Pulse Rate 95 H 78 Respiratory Rate 20 14 Blood Pressure Blood Pressure [Left Arm] 158/90 H 161/88 H Pulse Oximetry 98 97 05/21/18 20:00 05/21/18 20:51 Temperature Pulse Rate 77 84 Respiratory Rate 26 H 22 Blood Pressure 153/92 H Blood Pressure [Left Arm] 134/81 Pulse Oximetry 99 99 MDM - Abdominal Pain <Ana Luisa Kaplan, STONER OUT-BC - Last Filed: 05/21/18 21:07> Lab Data Result diagrams: 05/21/18 18:25 05/21/18 18:25 Lab Results 05/21/18 05/21/18 05/21/18 Range/Units 17:00 18:25 18:25 WBC 9.6 (4.5-11.0) X10^3/uL RBC 4.71 (4.5-5.9) X10^6/uL Hgb 15.9 (13.5-17.5) g/dL Hct 45.8 (41-53) % MCV 97.4 (80-100) fL MCH 33.9 (26-34) PG MCHC 34.8 (30-36) % RDW 13.5 (11.6-14.8) % Plt Count 275 (150-400) X10^3/uL Neut % (Auto) 68.2 (50-75) % Lymph % (Auto) 18.5 L (25-40) % [place] % (Auto) 10.8 (3-14) % Eos % (Auto) 1.8 L (2-4) % Baso % (Auto) 0.7 (0-2) % Neut # (Auto) 6500 (8307-7018) /uL Lymph # (Auto) 1800 (7882-2257) /uL [place] # (Auto) 1000 H (0-900) /uL Eos # (Auto) 200 (0-450) /uL Baso # (Auto) 100 (0-100) /uL Sodium 139 (137-145) mmol/L Potassium 4.2 (3.4-5.1) mmol/L Chloride 106 (98-107) mmol/L Carbon Dioxide 23 (22-32) mmol/L BUN 20 (9-20) mg/dL Creatinine 1.00 (0.66-1.25) mg/dL Estimated GFR > 60.0 (>60) mL/min BUN/Creatinine Ratio 20.0 (6-22) Glucose 106 H (70-100) mg/dL Calcium 9.4 (8.4-10.2) mg/dL Total Bilirubin 0.2 (0.2-1.3) mg/dL AST 28 (17-59) IU/L ALT 26 (21-72) IU/L Alkaline Phosphatase 74 (38-126) U/L Total Protein 7.9 (6.3-8.2) g/dL Albumin 4.6 (3.5-5.0) g/dL Globulin 3.3 (1.7-4.1) g/dL Albumin/Globulin Ratio 1.4 (1.0-2.8) Urine RBC 0-1/hpf (0-5/HPF) Urine WBC 0-1/hpf (0-5/HPF) Urine Bacteria None seen (None) Ur Culture Indicated? Cult not indicated Micro UA Comment Microscopic normal Point of care testing: Urine Dip Bedside Urine Glucose Negative Bedside Urine Bilirubin - Negative Bedside Urine Ketone - Negative Urine Specific [place] 1.015 Bedside Urine Occult Blood +/- Bedside Urine pH 6.0 Bedside Urine Protein - Negative Bedside Urine Urobilinogen - Negative Bedside Urine Nitrite - Negative Bedside Urine Leukocytes +/- [address] KUB: Radiologist's impression: [place] [address] CT Scan Report Signed Patient: Joaquín Call CMR#: [id number] : 1960Acct:[id number] Age/Sex: 58 / MDate of Service: 05/21/18 Loc: ED Accession Number: [id number] Procedure: CT kidney ureter bladder (KUB) Ordering Provider: Ana Luisa Kaplan PROCEDURE: CT KIDNEY URETER BLADDER (KUB) INDICATIONS: R flank pain, hx stones TECHNIQUE: Noncontrast 5 mm thick sections acquired from the diaphragms to the symphysis. 5 mm thick coronal and sagittal reformats were then performed. For radiation dose reduction, the following was used: automated exposure control, adjustment of mA and/or kV according to patient size. COMPARISON: [facility], CT, KIDNEY/ URETER/BLADDER, 08/03/2017, 9:11. [facility], CT, KIDNEY/ URETER/BLADDER, 07/25/2017, 11:39. FINDINGS: Image quality: Excellent. Lung bases: Lung bases are clear. Heart size is normal. Urinary system: There are bilateral renal calculi with the largest in the right kidney measuring 6 mm in the superior pole and the largest stone in the left kidney measuring 6 mm in the inferior pole. There is a 4 x 5 mm stone in the mid right ureter with CT density 559 HU, probably a struvite stone or cystine stone. There is mild right hydronephrosis and perinephric stranding. No left ureteral stones. Both kidneys are normal in size. Bladder wall thickness is normal; no calcified bladder stones. Prostate is enlarged. Other solid organs: Liver is normal in size. Gallbladder is normal. Pancreas is normal in contours. Spleen is normal in size. There is 1.0 x 2.2 cm left adrenal nodule with CT density 7.8 HU, compatible with a benign adrenal adenoma. It appears unchanged from the last exam. Peritoneum and bowel: Unenhanced bowel loops demonstrate normal wall thickness and caliber. There are multiple colonic diverticula. Appendix is normal. No free fluid or air. Nodes and vessels: No retroperitoneal or mesenteric adenopathy by size criteria. Aorta and inferior vena cava are normal in caliber. Abdominal wall: No ventral hernias. Pelvis: No free pelvic fluid. No inguinal hernias or adenopathy. Bones: No suspicious bony lesions. No vertebral body compression fractures. This moderate degenerative disc disease at L4-L5. IMPRESSION: 1. A 4 x 5 mm obstructing stone is present in the mid right ureter. There is mild right hydronephrosis and perinephric stranding. 2. Bilateral renal calculi are present. 3. Diverticulosis without acute diverticulitis. 4. Left adrenal adenoma. Dictated by: Yanci Zhang M.D. on 05/21/2018 at 18:51 Approved by: Yanci Zhang M.D. on 05/21/2018 at 19:02 MDM Narrative Medical decision making narrative: Patient presents with right flank pain and concern for kidney stone. CT confirms a kidney stone in his right mid ureter that is obstructing at this time with mild hydronephrosis. The patient has a significant history of kidney stones and states he is comfortable with management of them. He was given Toradol and a lidocaine infusion in the emergency department for pain and stated that his pain was well controlled enough that he could drive home. His renal function is normal at this point time. I gave him pain and nausea medication. He states he will follow up with primary care provider tomorrow. He has no signs of infection in his urine at this point time according to his UA. He also has a normal WBC count. I discussed pushing fluids and strain his urine. I discussed return in the emergency department for any acute concerns and monitoring for signs and symptoms of infection including fever. Patient had no questions or concerns upon discharge. He is hemodynamically stable throughout stay in the emergency department. <Kevin Wan MD - Last Filed: 05/22/18 00:45> Lab Data Lab Results 05/21/18 05/21/18 05/21/18 Range/Units 17:00 18:25 18:25 WBC 9.6 (4.5-11.0) X10^3/uL RBC 4.71 (4.5-5.9) X10^6/uL Hgb 15.9 (13.5-17.5) g/dL Hct 45.8 (41-53) % MCV 97.4 (80-100) fL MCH 33.9 (26-34) PG MCHC 34.8 (30-36) % RDW 13.5 (11.6-14.8) % Plt Count 275 (150-400) X10^3/uL Neut % (Auto) 68.2 (50-75) % Lymph % (Auto) 18.5 L (25-40) % [place] % (Auto) 10.8 (3-14) % Eos % (Auto) 1.8 L (2-4) % Baso % (Auto) 0.7 (0-2) % Neut # (Auto) 6500 (2043-1216) /uL Lymph # (Auto) 1800 (1791-1034) /uL [place] # (Auto) 1000 H (0-900) /uL Eos # (Auto) 200 (0-450) /uL Baso # (Auto) 100 (0-100) /uL Sodium 139 (137-145) mmol/L Potassium 4.2 (3.4-5.1) mmol/L Chloride 106 (98-107) mmol/L Carbon Dioxide 23 (22-32) mmol/L BUN 20 (9-20) mg/dL Creatinine 1.00 (0.66-1.25) mg/dL Estimated GFR > 60.0 (>60) mL/min BUN/Creatinine Ratio 20.0 (6-22) Glucose 106 H (70-100) mg/dL Calcium 9.4 (8.4-10.2) mg/dL Total Bilirubin 0.2 (0.2-1.3) mg/dL AST 28 (17-59) IU/L ALT 26 (21-72) IU/L Alkaline Phosphatase 74 (38-126) U/L Total Protein 7.9 (6.3-8.2) g/dL Albumin 4.6 (3.5-5.0) g/dL Globulin 3.3 (1.7-4.1) g/dL Albumin/Globulin Ratio 1.4 (1.0-2.8) Urine RBC 0-1/hpf (0-5/HPF) Urine WBC 0-1/hpf (0-5/HPF) Urine Bacteria None seen (None) Ur Culture Indicated? Cult not indicated Micro UA Comment Microscopic normal Point of care testing: Urine Dip Bedside Urine Glucose Negative Bedside Urine Bilirubin - Negative Bedside Urine Ketone - Negative Urine Specific [place] 1.015 Bedside Urine Occult Blood +/- Bedside Urine pH 6.0 Bedside Urine Protein - Negative Bedside Urine Urobilinogen - Negative Bedside Urine Nitrite - Negative Bedside Urine Leukocytes +/- 15 Esterase Discharge Plan Departure Patient Disposition: Home Clinical Impression: Kidney stone on right side Discharge Date/Time: 05/21/18 20:53 Interventions: ED Discharge Assessment Last Done: 05/21/18 20:51 Instructions: Kidney Stones (Alternative Therapy), Kidney Stones -- Adult, DI for Kidney Stones Activity Restrictions/Additional Instructions: You have a kidney stone. Please push fluids, strain your urine and follow up with primary care provider. Please consider taking Flomax once a day for a week. I have not given you a prescription as you state of playing at home. I have given you pain medication as well as nausea medication. Please know that the pain medication can be sedating and constipating. Please follow-up with her primary care provider specially few do not passed the stone shortly. The stone is obstructing, which he state you have had before. Right now your urine does not have any signs of infection. Please monitor for fever, burning when your urinate etc. Prescriptions: New oxycodone-acetaminophen [Percocet] 5-325 mg tablet 1 tab PO Q4-6H PRN (Reason: pain) Qty: 20 RF: 0 ondansetron 4 mg tablet,disintegrating 4 mg PO TID-QID PRN (Reason: nausea and vomiting) Qty: 20 RF: 0 No Action docusate sodium 250 MG capsule 250 mg PO QDAY Qty: 0 RF: 0 indomethacin 75 MG capsule, extended release 75 mg PO BID Qty: 0 RF: 0 lisinopril 20 mg Tablet 20 mg PO DAILY RF: 0 tamsulosin 0.4 mg capsule,extended release 24hr 0.4 mg PO DAILY RF: 0 nitroglycerin 0.4 mg tablet, sublingual 0.4 mg SL Q5-15M PRN (Reason: chest pain) Qty: 14 RF: 0 aspirin 81 mg tablet,chewable 81 mg PO DAILY Qty: 10 RF: 0 Referrals: Daniella Sanchez MD [Primary Care Provider] - <Kevin Wan MD - Last Filed: 05/22/18 00:45> Cosign ED Attending Cosignature Attestation: I was in the ER at the time of this patient's treatment. I was available for verbal dental laboratory assistant or direct patient evaluation if needed. I agree with the evaluation and treatment plan.
[2018-05-21 18:23] LABS: Culture Indicated Urine Cult Not Indicated; RBC Urine 0-1/HPF (0-5/HPF); Urine Comments Microscopic Normal; WBC Urine 0-1/HPF (0-5/HPF)
[2018-05-21] MEDS: KETOROLAC 60 MG/2 ML VIAL 30 MG IV (18:23)
[2018-05-21] MEDS: ONDANSETRON 4 MG/2 ML INJ IV (18:23)
[2018-05-21] MEDS: SODIUM CHLORIDE 0.9% 1,000 ML 1000 ML IV (18:23)
--- NOTE | 2018-05-21 18:35 | PC.NURSE ---
hx of multiple kidney stones, pt reports, right flank pain to groin, denies fever,vomiting. onset today. took ibuprofen 400mg at 230pm today.
[2018-05-21 18:38] LABS: Add Manual Diff / Slide Review NO; Basophils Absolute Auto 100 /uL (0-100); Basophils Percent Auto 0.7 % (0-2); Eosinophils Absolute Auto 200 /uL (0-450); Eosinophils Percent Auto 1.8 % (2-4); Hematocrit 45.8 % (41-53); Hemoglobin 15.9 g/dL (13.5-17.5); Lymphocytes Absolute Auto 1800 /uL (1100-4500); Lymphocytes Percent Auto 18.5 % (25-40); Mean Corpuscular HGB Conc 34.8 % (30-36); Mean Corpuscular Hemoglobin 33.9 PG (26-34); Mean Corpuscular Volume 97.4 fL (80-100); Monocytes Absolute Auto 1000 /uL (0-900); Monocytes Percent Auto 10.8 % (3-14); Neutrophils Absolute Auto 6500 /uL (1500-7000); Neutrophils Percent Auto 68.2 % (50-75); Platelet Count 275 X10^3/uL (150-400); Red Blood Cell Count 4.71 X10^6/uL (4.5-5.9); Red Cell Distribution Width 13.5 % (11.6-14.8); White Blood Cell Count 9.6 X10^3/uL (4.5-11.0)
[2018-05-21 18:49] LABS: Alanine Aminotransferase 26 IU/L (21-72); Albumin 4.6 g/dL (3.5-5.0); Albumin Globulin Ratio 1.4 (1.0-2.8); Alkaline Phosphatase 74 U/L (38-126); Aspartate Aminotransferase 28 IU/L (17-59); Bilirubin Total 0.2 mg/dL (0.2-1.3); Blood Urea Nitrogen 20 mg/dL (9-20); Calcium 9.4 mg/dL (8.4-10.2); Carbon Dioxide 23 mmol/L (22-32); Chloride 106 mmol/L (98-107); Estimated Glomerular Filt Rate > 60.0 mL/min (>60); Globulin 3.3 g/dL (1.7-4.1); Glucose 106 mg/dL (70-100); HEMOLYSIS < 15 (0-50); Potassium 4.2 mmol/L (3.4-5.1); Sodium 139 mmol/L (137-145); Total Protein 7.9 g/dL (6.3-8.2)
[2018-05-21 19:39] VITALS: BP 161/88; PULSE 78; RESP 14; O2SAT 97
--- NOTE | 2018-05-21 19:39 | PC.NURSE ---
Pt placed on car oiler prior to lidocane drip.
[2018-05-21 20:00] VITALS: BP 134/81; PULSE 77; RESP 26; O2SAT 99
[2018-05-21] MEDS: LIDOCAINE 2% 5.4 ML in SODIUM CHLORIDE 0.9% 50 ML 332.4 ML IV (20:00)
[2018-05-21] MEDS: OXYCODONE/APAP 5/325 PREPACK 1 BOTTLE MISC (20:36)
[2018-05-21] MEDS: ONDANSETRON 4 MG ODT PREPACK 1 BOTTLE MISC (20:39)
[2018-05-21 20:51] VITALS: BP 153/92; PULSE 84; RESP 22; O2SAT 99
== END 2018-05-21 20:53 | disposition home or self-care (01) ==
PROVIDERS: Emergency Provider Nurse Practitioner Family; Family Provider Internal Medicine; PCP Internal Medicine
DX: N20.0 Calculus of kidney (principal)
CPT/HCPCS: 36591; 74176; 80053; 81003; 81015; 85025; 96361; 96374; 96375; 99283; 99284; J1885; J2405

== ENCOUNTER 2018-08-03 06:07 | Emergency (ER) | payer OTHER, SELFPAY ==
[2018-08-03 06:24] VITALS: PULSE 94; RESP 16; TEMP 36.7; O2SAT 100; BMI 25.0
[2018-08-03 06:32] VITALS: BP 143/95; PULSE 94; RESP 16; TEMP 36.7; O2SAT 100; BMI 25.0
[2018-08-03] MEDS: KETOROLAC 60 MG/2 ML VIAL 30 MG IM (06:50)
[2018-08-03 07:00] VITALS: PULSE 90
--- NOTE | 2018-08-03 07:27 | ED.EXTPRO ---
HPI - Extremity Problem General Chief complaint: Extremity Problem,Nontraumatic Stated complaint: non stop pain from neck down left arm not chest pn Time Seen by Provider: 08/03/18 07:15 Source: patient and other Mode of arrival: ambulatory Limitations: no limitations History of Present Illness HPI Narrative: This is a 58-year-old male comes to the emergency department with complaint of left arm pain. patient states he has had chronic left arm, neck pain that sometimes also in the armpit area. He states that today it started about 5:00 a.m. this morning and just would not resolve. He usually takes NSAIDs, uses heat packs and it will improve he was so uncomfortable he brought himself. It actually started to improve on the drive here. He received Toradol from the overnight physician which did help his symptoms. patient denies any chest pain or pressure, he denies any shortness of breath he states he does sometimes have little bit of neck pain and he has a history of a compression injury to C5-6 7 remotely. He has not had any recent trauma or injury that he is aware. Patient states that the pain radiates all the way down into his arm and in particular his two fingers. He denies any weakness. 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 He does smoke, he has a history of hypertension As well as kidney stones. Denies any fevers. Related Data Home Medications Medication Instructions Recorded Confirmed docusate sodium 250 mg PO QDAY #0 08/03/17 11/14/17 indomethacin 75 mg PO BID #0 08/03/17 11/14/17 lisinopril 20 mg PO DAILY 11/14/17 11/14/17 tamsulosin 0.4 mg PO DAILY 11/14/17 11/14/17 Previous Rx's Medication Instructions Recorded aspirin 81 mg PO DAILY #10 tab 11/14/17 nitroglycerin 0.4 mg SL Q5-15M PRN #14 tab 11/14/17 ondansetron 4 mg PO TID-QID PRN #20 tab 05/21/18 oxycodone-acetaminophen [Percocet] 1 tab PO Q4-6H PRN #20 tab 05/21/18 Allergies Allergy/AdvReac Type Severity Reaction Status Date / Time No Known Drug Allergies Allergy Verified 11/14/17 13:01 Review of Systems Review of Systems ROS Unobtainable: All systems reviewed & are unremarkable except as noted in HPI and below Constitutional Denies chills, Denies fever(s), Denies lethargy and Denies weakness ENT Ears, Nose, Mouth, and Throat: Reports neck pain Cardiovascular Denies chest pain, Denies chest pain at rest, Denies chest pain with activity, Denies syncope, Denies rapid heart rate, Denies edema, Reports radiating jaw, neck or arm pain, Denies dyspnea and Denies dyspnea on exertion Respiratory Denies chest congestion, Denies excessive phlegm production, Denies pain on inspiration, Denies dyspnea, Denies dyspnea on exertion and Denies wheezing Gastrointestinal Gastrointestinal: Denies abdominal pain, Denies change in bowel habits, Denies diarrhea, Denies nausea and Denies vomiting Genitourinary Denies hematuria, Denies dysuria, Denies flank pain, Denies urinary frequency and Denies urinary urgency Musculoskeletal Reports as per HPI, Denies abnormal gait, Reports arthralgias (left shoulder), Denies joint swelling, Reports limited range of motion (improvedn ow.), Denies muscle weakness, Reports neck pain, Denies numbness, Reports radiating pain into limb and Denies tingling Integumentary/Breasts Denies erythema and Denies rash Neurologic Denies abnormal gait, Denies syncope, Denies numbness, Denies tingling and Denies weakness Allergic/Immunologic Denies wheezing FORMERLY [facility] Medical History Tobacco abuse (Chronic) Social History Smoking Status: Current every day smoker Social History (Updated 08/03/18 @ 18:10 by Ana Luisa De Paz DO) Smoking Status: Current every day smoker alcohol intake: current substance use type: does not use Exam Narrative Exam Narrative: GEN: well nourished, well appearing male, alert and oriented x 3, patient appears to be in mild distress. HEENT: Atraumatic, pupils are equal round reactive to light, extraocular movements are intact, nares are clear, TMs are clear with no fluid, there is no conjunctival pallor. Throat is clear without any exudates, erythema, tonsillar enlargement or uvular deviation HEART: Regular rate and rhythm without murmur, clicks, rubs. pulses equal bilateral upper extremities. LUNGS:Lungs clear to auscultation, no wheezes, rales, crackles, chest moves symmetrically ABD:bowel sounds normal, soft, non-tender, no guarding, rebound, rigidity, no masses noted, no hepatosplenomegaly BACK: No cervical, thoracic vertebral point tenderness. Patient has a normal range of motion. Patient's gait is normal. Muscle strength is 5/5 in upper extremities, new vehicle sales consultant is equal bilaterally. 2+ radial pulses bilaterally. Sensation intact in both upper extremities to light touch. MSCL: Non-tender, no muscle atrophy, muscles strength 5/5 upper and lower extremities, full range of motion, normal gait NEURO:CN 2-12 intact, sensation normal, reflexes 2/4 upper and lower extremities. finger nose finger test normal, heel platt test normal, romberg normal Initial Vital Signs Initial Vital Signs: Vital Signs Temperature 98.1 F 08/03/18 06:24 Pulse Rate 94 H 08/03/18 06:24 Respiratory Rate 16 08/03/18 06:24 Pulse Oximetry 100 08/03/18 06:24 Course Orders Ordered: Discontinued Medications Ketorolac Tromethamine (Toradol) 30 mg IM NOW ONE Stop: 08/03/18 06:46 Last Admin: 08/03/18 06:50 Dose: 30 mg Vital Signs - 8 hr 08/03/18 06:24 08/03/18 06:32 08/03/18 07:00 Temperature 98.1 F 98.1 F Pulse Rate 94 H 94 H Pulse Rate [Left Radial] 90 Respiratory Rate 16 16 Blood Pressure 143/95 H Pulse Oximetry 100 100 MDM - Extremity (Nontraumatic) MDM Narrative Medical decision making narrative: Discussed with patient has some portions where he describes some discomfort in the arm pit in axilla that little bit concerning for cardiac cause and he has some risk factors with hypertension and chronic tobacco use. Discussed with patient he does not wish to do EKG or further evaluation. He is feeling more comfortable at this time. He is willing to follow up with primary care through [facility] [employer] for further testing and even possibly stress testing. The patient is aware of risk versus benefits is appropriate competent to make this decision. Discharge Plan Departure Patient Disposition: Home Clinical Impression: Arm pain, left Discharge Date/Time: 08/03/18 07:43 Interventions: ED Discharge Assessment Last Done: 08/03/18 07:42 Instructions: DI for Cervical Radiculopathy Activity Restrictions/Additional Instructions: Follow-up with primary care in the next 2-3 days for recheck discuss with the physician about cardiac evaluation/stress testing as well as radiculopathy. Continue treatment as usually do home. Return to the emergency department for worsening symptoms, new weakness, numbness, loss of sensation, chest pain or pressure, shortness of breath, diaphoresis, passing out, persistent vomiting or other new or concerning symptoms. Prescriptions: No Action docusate sodium 250 MG capsule 250 mg PO QDAY Qty: 0 RF: 0 indomethacin 75 MG capsule, extended release 75 mg PO BID Qty: 0 RF: 0 lisinopril 20 mg Tablet 20 mg PO DAILY RF: 0 tamsulosin 0.4 mg capsule,extended release 24hr 0.4 mg PO DAILY RF: 0 nitroglycerin 0.4 mg tablet, sublingual 0.4 mg SL Q5-15M PRN (Reason: chest pain) Qty: 14 RF: 0 aspirin 81 mg tablet,chewable 81 mg PO DAILY Qty: 10 RF: 0 oxycodone-acetaminophen [Percocet] 5-325 mg tablet 1 tab PO Q4-6H PRN (Reason: pain) Qty: 20 RF: 0 ondansetron 4 mg tablet,disintegrating 4 mg PO TID-QID PRN (Reason: nausea and vomiting) Qty: 20 RF: 0 Referrals: Daniella Sanchez MD [Primary Care Provider] -
== END 2018-08-03 07:43 | disposition home or self-care (01) ==
PROVIDERS: Emergency Provider Emergency Medicine; Family Provider Internal Medicine; PCP Internal Medicine
DX: M79.602 Pain in left arm (principal); M54.2 Cervicalgia; I10 Essential (primary) hypertension
CPT/HCPCS: 96372; 99282; 99283; J1885

== ENCOUNTER 2018-08-09 04:10 | Emergency (ER) | payer OTHER, SELFPAY ==
[2018-08-09] VITALS (12 sets, daily range): BP systolic 138–200; BP diastolic 80–101; PULSE 74–104; RESP 12–22; TEMP 37.1; O2SAT 94–99; BMI 25.8
--- NOTE | 2018-08-09 04:16 | ED.NECK ---
HPI - Neck Pain/Injury General Chief Complaint: Neck Pain/Injury Stated Complaint: Neck pain radiating to arms Time Seen by Provider: 08/09/18 04:14 Source: patient Mode of arrival: ambulatory Limitations: no limitations History of Present Illness HPI Narrative: The patient woke this morning by 130 with pain across his upper back, in his left chest, and down his left arm. He took 4 Percocet before coming in, the pain persists. 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 He has been placed on Percocet, Motrin and Cyclobenzaprine. A cervical MRI had been ordered. The patient had been having pains similar to tonight on a regular basis, he would get up and walk outside obtaining relief from the pain. There was no relief tonight. He was evaluated here 2 years ago for similar left-sided chest pain. cardiac evaluation was benign. He is a heavy smoker. He has hypertension. He has no history of CAD. He has no dyspnea associated with the current chest pain. Related Data Home Medications Medication Instructions Recorded Confirmed docusate sodium 250 mg PO QDAY #0 08/03/17 11/14/17 indomethacin 75 mg PO BID #0 08/03/17 11/14/17 lisinopril 20 mg PO DAILY 11/14/17 11/14/17 tamsulosin 0.4 mg PO DAILY 11/14/17 11/14/17 Previous Rx's Medication Instructions Recorded aspirin 81 mg PO DAILY #10 tab 11/14/17 nitroglycerin 0.4 mg SL Q5-15M PRN #14 tab 11/14/17 ondansetron 4 mg PO TID-QID PRN #20 tab 05/21/18 oxycodone-acetaminophen [Percocet] 1 tab PO Q4-6H PRN #20 tab 05/21/18 Allergies Allergy/AdvReac Type Severity Reaction Status Date / Time No Known Drug Allergies Allergy Verified 11/14/17 13:01 Review of Systems Review of Systems ROS Unobtainable: All systems reviewed & are unremarkable except as noted in HPI and below Constitutional Reports as per HPI, Denies chills, Denies fatigue, Denies fever(s), Denies frequent falls and Denies lethargy ENT Ears, Nose, Mouth, and Throat: Denies change in voice, Denies dizziness, Reports neck pain and Denies sore throat Cardiovascular Denies chest pain, Denies diaphoresis, Denies rapid heart rate, Denies pedal edema, Denies lightheadedness and Denies dyspnea Respiratory Denies cough, Denies dyspnea and Denies wheezing Gastrointestinal Gastrointestinal: Denies abdominal pain, Denies change in bowel habits, Denies diarrhea, Denies nausea and Denies vomiting Musculoskeletal Reports neck pain and Denies numbness Comments: Pain radiating down his left arm. Integumentary/Breasts Denies erythema and Denies rash Neurologic Denies confusion, Denies dizziness, Denies frequent falls, Denies focal weakness and Denies numbness Psychiatric Denies confusion Endocrine Denies fatigue Allergic/Immunologic Denies wheezing FORMERLY [facility] Medical History (Updated 08/09/18 @ 05:45 by Kevin Wan MD) DJD (degenerative joint disease), cervical (Acute) Hypertension (Acute) Kidney stones (Acute) No significant past surgical history (Acute) Tobacco abuse (Chronic) Social History Smoking Status: Current every day smoker alcohol intake: current substance use type: does not use Social History Smoking Status: Current every day smoker alcohol intake: current substance use type: does not use Exam Initial Vital Signs Initial Vital Signs: Vital Signs Temperature 98.8 F 08/09/18 04:18 Pulse Rate 104 H 08/09/18 04:18 Respiratory Rate 22 08/09/18 04:18 Blood Pressure 200/101 H 08/09/18 04:18 Pulse Oximetry 99 08/09/18 04:18 Const General: cooperative and well developed Nutritional Appearance: well nourished Orientation: alert, awake and oriented x3 [facility] Head: normocephalic and atraumatic Nose: external nose normal Face and sinus: sinuses tender and face symmetric Mouth: oral mucosae normal and moist mucous membranes Throat: tonsils normal and uvula midline Eyes General: appearance normal, both eyes and all related structures Eyelids: eyelids normal Conjunctivae: conjunctivae normal Sclera: sclerae normal Pupils: PERRL EOM: EOM intact bilaterally Neck Neck: normal visual inspection, trachea midline, No lymphadenopathy, No midline deformity and No JVD Chest Chest: normal inspection of the chest and No tenderness Resp Effort & Inspection: normal respiratory effort and able to speak in complete sentences Auscultation: clear to auscultation bilaterally, no rales, no rhonchi and no wheezes Cardio Rate: regular rate Rhythm: regular rhythm Heart Sounds: no click, no gallops, no murmurs and no rubs Pulses: normal peripheral pulses GI Inspection: non-distended Palpation: soft, no hepatosplenomegaly, No guarding, No pulsatile mass and No tender Auscultation: normal bowel sounds Back/Spine/Pelvis Back: No CVA tenderness Cervical Spine: pain with cervical ROM Thoracic/Lumbar Spine: thoracic and lumbar spine normal to inspection Skin General: no rashes or lesions noted Neuro General: alert, oriented x3 and no focal motor deficits Speech: speech normal Extrem General: full ROM, no pedal edema and no calf tenderness Course Course Narrative: The patient presented with chest and left arm pain. EKG revealed ischemic changes inferior, anterior lateral leads. The EKG findings are significantly different from a baseline EKG of 2017. The patient was given Aspirin, IV Lopressor, and topical Nitroglycerin. Pain persisted. A heparin bolus and Heparin drip were initiated. He was given IV Morphine. The topical Nitro has been replaced with a Nitro drip. A 2nd EKG continues to show the ischemic changes, but the ST depression has improved. He has an elevated Troponin. I contacted Dr. Spangler, cardiology at [facility]. She has agreed to evaluate the patient this morning with a cardiac catheterization likely to follow. I also discussed the case with hospitalist, Dr. Funes, at [facility]. He has accepted the patient. The patient was initially hypertensive, his blood pressures improved. His vitals have been stable throughout his ER evaluation. Orders Ordered: ED Orders 08/09/18 EKG-12 Lead Stat 08/09/18 04:25 XR chest 1V Stat EKG-12 Lead Stat 08/09/18 04:30 Acetaminophen Stat Complete Blood Count AUTO DIFF Stat Comprehensive Metabolic Panel Stat D Dimer Stat Lipase Stat Troponin & CK Cardiac Panel Stat Sodium Chloride (Normal Saline 0.9%) 1,000 mls @ 150 mls/hr IV CONT ROSALBA Last Admin: 08/09/18 04:38 Dose: 150 mls/hr Heparin Sodium/Dextrose (Heparin Drip) 25,000 unit in 500 mls @ 20 mls/hr IV CONT ROSALBA; Protocol Last Admin: 08/09/18 04:57 Dose: 1,000 units/hr, 20 mls/hr Nitroglycerin (Nitroglycerin) 50 mg in 250 mls @ 1.5 mls/hr IV TITRATE ROSALBA; Protocol Last Admin: 08/09/18 05:20 Dose: 5 mcg/min, 1.5 mls/hr Discontinued Medications Aspirin (Aspirin Chew) 324 mg PO NOW ONE Stop: 08/09/18 04:26 Last Admin: 08/09/18 04:33 Dose: 324 mg Heparin Sodium (Porcine) (Heparin) 5,000 unit IV NOW ONE Stop: 08/09/18 04:52 Last Admin: 08/09/18 04:56 Dose: 5,000 unit Metoprolol Tartrate (Lopressor) 5 mg IV Q5M ROSALBA Stop: 08/09/18 04:41 Last Admin: 08/09/18 04:48 Dose: 5 mg Admin: 08/09/18 04:42 Dose: 5 mg Admin: 08/09/18 04:34 Dose: 5 mg Morphine Sulfate (Morphine) 4 mg IV NOW ONE Stop: 08/09/18 04:59 Last Admin: 08/09/18 05:01 Dose: 4 mg Morphine Sulfate (Morphine) 4 mg IV NOW ONE Stop: 08/09/18 06:10 Last Admin: 08/09/18 06:11 Dose: 4 mg Nitroglycerin (Nitro-Bid) 1 inch TOP NOW ONE Stop: 08/09/18 04:26 Last Admin: 08/09/18 04:32 Dose: 1 inch Vital Signs - 8 hr 08/09/18 04:18 08/09/18 04:40 08/09/18 04:45 Temperature 98.8 F Pulse Rate 104 H 86 83 Respiratory Rate 22 15 15 Blood Pressure 200/101 H Blood Pressure [Right Arm] 160/87 H 160/87 H Pulse Oximetry 99 97 97 08/09/18 04:50 08/09/18 04:55 08/09/18 05:00 Temperature Pulse Rate 80 76 74 Respiratory Rate 15 14 13 Blood Pressure Blood Pressure [Right Arm] 167/85 H 158/92 H 164/91 H Pulse Oximetry 97 95 97 08/09/18 05:15 08/09/18 05:25 08/09/18 05:40 Temperature Pulse Rate 77 82 83 Respiratory Rate 15 12 16 Blood Pressure Blood Pressure [Right Arm] 171/89 H 158/81 H 152/84 H Pulse Oximetry 97 96 94 08/09/18 05:45 08/09/18 05:52 Temperature Pulse Rate 81 83 Respiratory Rate 14 19 Blood Pressure Blood Pressure [Right Arm] 149/82 H 144/84 H Pulse Oximetry 94 94 MDM - Neck Pain/Injury Lab Data Result diagrams: 08/09/18 04:30 08/09/18 04:30 Lab Results 08/09/18 08/09/18 08/09/18 Range/Units 04:30 04:30 04:30 WBC 16.1 H (4.5-11.0) X10^3/uL RBC 4.62 (4.5-5.9) X10^6/uL Hgb 15.3 (13.5-17.5) g/dL Hct 44.0 (41-53) % MCV 95.2 (80-100) fL MCH 33.1 (26-34) PG MCHC 34.7 (30-36) % RDW 12.9 (11.6-14.8) % Plt Count 280 (150-400) X10^3/uL Neut % (Auto) 85.1 H (50-75) % Lymph % (Auto) 6.2 L (25-40) % [place] % (Auto) 8.0 (3-14) % Eos % (Auto) 0.4 L (2-4) % Baso % (Auto) 0.3 (0-2) % Neut # (Auto) 89312 H (5415-0142) /uL Lymph # (Auto) 1000 L (3463-9974) /uL [place] # (Auto) 1300 H (0-900) /uL Eos # (Auto) 100 (0-450) /uL Baso # (Auto) 100 (0-100) /uL D-Dimer 223 (<230) ng/mL Sodium 138 (137-145) mmol/L Potassium 3.9 (3.4-5.1) mmol/L Chloride 105 (98-107) mmol/L Carbon Dioxide 22 (22-32) mmol/L BUN 24 H (9-20) mg/dL Creatinine 1.20 (0.66-1.25) mg/dL Estimated GFR > 60.0 (>60) mL/min BUN/Creatinine Ratio 20.0 (6-22) Glucose 200 H (70-100) mg/dL Calcium 9.6 (8.4-10.2) mg/dL Total Bilirubin 0.5 (0.2-1.3) mg/dL AST 41 (17-59) IU/L ALT 36 (21-72) IU/L Alkaline Phosphatase 89 (38-126) U/L Total Creatine Kinase 366 H (55-170) U/L CK-MB (CK-2) 9.86 H (<2.37) ng/mL CK-MB (CK-2) Rel Index 2.7 (1.5-5.0) % Troponin I 0.869 H* (0.01-0.034) ng/mL Total Protein 8.2 (6.3-8.2) g/dL Albumin 4.7 (3.5-5.0) g/dL Globulin 3.5 (1.7-4.1) g/dL Albumin/Globulin Ratio 1.3 (1.0-2.8) Lipase 296 (23-300) U/L Acetaminophen (10-30) ug/mL 08/09/18 Range/Units 04:30 WBC (4.5-11.0) X10^3/uL RBC (4.5-5.9) X10^6/uL Hgb (13.5-17.5) g/dL Hct (41-53) % MCV (80-100) fL MCH (26-34) PG MCHC (30-36) % RDW (11.6-14.8) % Plt Count (150-400) X10^3/uL Neut % (Auto) (50-75) % Lymph % (Auto) (25-40) % [place] % (Auto) (3-14) % Eos % (Auto) (2-4) % Baso % (Auto) (0-2) % Neut # (Auto) (0964-2189) /uL Lymph # (Auto) (5696-3751) /uL [place] # (Auto) (0-900) /uL Eos # (Auto) (0-450) /uL Baso # (Auto) (0-100) /uL D-Dimer (<230) ng/mL Sodium (137-145) mmol/L Potassium (3.4-5.1) mmol/L Chloride (98-107) mmol/L Carbon Dioxide (22-32) mmol/L BUN (9-20) mg/dL Creatinine (0.66-1.25) mg/dL Estimated GFR (>60) mL/min BUN/Creatinine Ratio (6-22) Glucose (70-100) mg/dL Calcium (8.4-10.2) mg/dL Total Bilirubin (0.2-1.3) mg/dL AST (17-59) IU/L ALT (21-72) IU/L Alkaline Phosphatase (38-126) U/L Total Creatine Kinase (55-170) U/L CK-MB (CK-2) (<2.37) ng/mL CK-MB (CK-2) Rel Index (1.5-5.0) % Troponin I (0.01-0.034) ng/mL Total Protein (6.3-8.2) g/dL Albumin (3.5-5.0) g/dL Globulin (1.7-4.1) g/dL Albumin/Globulin Ratio (1.0-2.8) Lipase (23-300) U/L Acetaminophen < 10 L (10-30) ug/mL Imaging Data Chest x-ray: Attestation: I personally reviewed and interpreted this imaging study as follows: My impression: Normal chest x-ray. ECG Data Attestation: I personally reviewed and interpreted this ECG as follows: (EKG 1.: Sinus tachycardia rate 102 beats per minute. LAFB. ST depression leads 2, [address] depression anterior lateral leads. EKG 2. Normal sinus rhythm rate 75 beats per minute. incomplete RBBB. LAFB. ST depression in inferior, anterior and lateral leads. ) Critical Care Time Critical Care Time: Yes Total Critical Care Time: 60 Attestation: The patient was the source of his medical history. Past medical records and former EKGs were reviewed. Labs were reviewed. Multiple clinic decisions have been made for his ongoing care. I have discussed his clinical situation with the hospitalist and the lunchroom worker at the patient who will be seeing him in transfer. Discharge Plan Departure Patient Disposition: [facility] Clinical Impression: Non-ST elevated myocardial infarction (non-STEMI) Prescriptions: No Action docusate sodium 250 MG capsule 250 mg PO QDAY Qty: 0 RF: 0 indomethacin 75 MG capsule, extended release 75 mg PO BID Qty: 0 RF: 0 lisinopril 20 mg Tablet 20 mg PO DAILY RF: 0 tamsulosin 0.4 mg capsule,extended release 24hr 0.4 mg PO DAILY RF: 0 nitroglycerin 0.4 mg tablet, sublingual 0.4 mg SL Q5-15M PRN (Reason: chest pain) Qty: 14 RF: 0 aspirin 81 mg tablet,chewable 81 mg PO DAILY Qty: 10 RF: 0 oxycodone-acetaminophen [Percocet] 5-325 mg tablet 1 tab PO Q4-6H PRN (Reason: pain) Qty: 20 RF: 0 ondansetron 4 mg tablet,disintegrating 4 mg PO TID-QID PRN (Reason: nausea and vomiting) Qty: 20 RF: 0 Referrals: Daniella Sanchez MD [Primary Care Provider] -
--- NOTE | 2018-08-09 04:25 | DI.RAD.S_ITS ---
PROCEDURE: XR CHEST 1V INDICATIONS: Chest pain TECHNIQUE: One view of the chest was acquired. COMPARISON: [facility], , XR CHEST 2V, 11/14/2017, 13:04. [facility], , CHEST 1 VIEW, 08/11/2017, 14:17. FINDINGS: Surgical changes and devices: None. Lungs and pleura: Lungs are clear. No pleural effusions or pneumothorax. Mediastinum: Mediastinal contours appear normal. Heart size is normal. Bones and chest wall: No suspicious bony lesions. Overlying soft tissues appear unremarkable. IMPRESSION: Normal for age, source of current chest pain symptoms is not seen. Dictated by: Rishabh Solares M.D. on 08/09/2018 at 9:02 Approved by: Rishabh Solares M.D. on 08/09/2018 at 9:03
[2018-08-09] MEDS: NITROGLYCERIN OINT 1 INCH/GM OINT...G. TOP (04:32)
[2018-08-09] MEDS: ASPIRIN 81 MG TAB 324 MG PO (04:33)
[2018-08-09] MEDS: METOPROLOL TARTRATE 5 MG/5 ML INJ IV ×3 (04:34→04:48)
[2018-08-09] MEDS: SODIUM CHLORIDE 0.9% 1,000 ML 150 ML IV (04:38)
[2018-08-09 04:43] LABS: Add Manual Diff / Slide Review NO; Basophils Absolute Auto 100 /uL (0-100); Basophils Percent Auto 0.3 % (0-2); Eosinophils Absolute Auto 100 /uL (0-450); Eosinophils Percent Auto 0.4 % (2-4); Hemoglobin 15.3 g/dL (13.5-17.5); Lymphocytes Absolute Auto 1000 /uL (1100-4500); Lymphocytes Percent Auto 6.2 % (25-40); Mean Corpuscular HGB Conc 34.7 % (30-36); Mean Corpuscular Hemoglobin 33.1 PG (26-34); Mean Corpuscular Volume 95.2 fL (80-100); Monocytes Absolute Auto 1300 /uL (0-900); Neutrophils Absolute Auto 13700 /uL (1500-7000); Neutrophils Percent Auto 85.1 % (50-75); Platelet Count 280 X10^3/uL (150-400); Red Blood Cell Count 4.62 X10^6/uL (4.5-5.9); Red Cell Distribution Width 12.9 % (11.6-14.8); White Blood Cell Count 16.1 X10^3/uL (4.5-11.0)
[2018-08-09 04:48] LABS: D Dimer 223 ng/mL (<230)
[2018-08-09 04:50] LABS: Alanine Aminotransferase 36 IU/L (21-72); Albumin 4.7 g/dL (3.5-5.0); Albumin Globulin Ratio 1.3 (1.0-2.8); Alkaline Phosphatase 89 U/L (38-126); Aspartate Aminotransferase 41 IU/L (17-59); Bilirubin Total 0.5 mg/dL (0.2-1.3); Blood Urea Nitrogen 24 mg/dL (9-20); Calcium 9.6 mg/dL (8.4-10.2); Carbon Dioxide 22 mmol/L (22-32); Chloride 105 mmol/L (98-107); Creatine Kinase 366 U/L (55-170); Estimated Glomerular Filt Rate > 60.0 mL/min (>60); Globulin 3.5 g/dL (1.7-4.1); Glucose 200 mg/dL (70-100); HEMOLYSIS < 15 (0-50); Lipase 296 U/L (23-300); Potassium 3.9 mmol/L (3.4-5.1); Sodium 138 mmol/L (137-145); Total Protein 8.2 g/dL (6.3-8.2)
[2018-08-09] MEDS: HEPARIN 5,000 UNIT/ML VIAL 5000 UNIT IV (04:56)
[2018-08-09] MEDS: HEPARIN DRIP 25,000 UNIT/500 ML IV.SOLN 20 UNIT IV (04:57)
--- NOTE | 2018-08-09 05:00 | PC.NURSE ---
Nitrobid paste removed, Nitroglycerin IV drip being administered.
[2018-08-09] MEDS: MORPHINE 4 MG/ML INJ IV ×2 (05:01→06:11)
--- NOTE | 2018-08-09 05:03 | PC.NURSE ---
His chest tightness was a 9 out of 10.4mg morphine was given.
[2018-08-09 05:05] LABS: CKMB % Relative Index 2.7 % (1.5-5.0); Creatine Kinase MB 9.86 ng/mL (<2.37)
--- NOTE | 2018-08-09 05:10 | PC.NURSE ---
He was awakened with neck pain and stabbing pain under both arms with chest tightness,at 0130 am,after #4 percocet and a muscle relaxer taken with no relief he came here pov.
--- NOTE | 2018-08-09 05:13 | ED_ITS ---
HPI - Neck Pain/Injury General Chief Complaint: Neck Pain/Injury Stated Complaint: Neck pain radiating to arms Time Seen by Provider: 08/09/18 04:14 Source: patient Mode of arrival: ambulatory Limitations: no limitations History of Present Illness HPI Narrative: The patient woke this morning by 130 with pain across his upper back, in his left chest, and down his left arm. He took 4 Percocet before coming in, the pain persists. 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 He has been placed on Percocet, Motrin and Cyclobenzaprine. A cervical MRI had been ordered. The patient had been having pains similar to tonight on a regular basis, he would get up and walk outside obtaining relief from the pain. There was no relief tonight. He was evaluated here 2 years ago for similar left-sided chest pain. cardiac evaluation was benign. He is a heavy smoker. He has hypertension. He has no history of CAD. He has no dyspnea associated with the current chest pain. Related Data Home Medications Medication Instructions Recorded Confirmed docusate sodium 250 mg PO QDAY #0 08/03/17 11/14/17 indomethacin 75 mg PO BID #0 08/03/17 11/14/17 lisinopril 20 mg PO DAILY 11/14/17 11/14/17 tamsulosin 0.4 mg PO DAILY 11/14/17 11/14/17 Previous Rx's Medication Instructions Recorded aspirin 81 mg PO DAILY #10 tab 11/14/17 nitroglycerin 0.4 mg SL Q5-15M PRN #14 tab 11/14/17 ondansetron 4 mg PO TID-QID PRN #20 tab 05/21/18 oxycodone-acetaminophen [Percocet] 1 tab PO Q4-6H PRN #20 tab 05/21/18 Allergies Allergy/AdvReac Type Severity Reaction Status Date / Time No Known Drug Allergies Allergy Verified 11/14/17 13:01 Review of Systems Review of Systems ROS Unobtainable: All systems reviewed & are unremarkable except as noted in HPI and below Constitutional Reports as per HPI, Denies chills, Denies fatigue, Denies fever(s), Denies frequent falls and Denies lethargy ENT Ears, Nose, Mouth, and Throat: Denies change in voice, Denies dizziness, Reports neck pain and Denies sore throat Cardiovascular Denies chest pain, Denies diaphoresis, Denies rapid heart rate, Denies pedal edema, Denies lightheadedness and Denies dyspnea Respiratory Denies cough, Denies dyspnea and Denies wheezing Gastrointestinal Gastrointestinal: Denies abdominal pain, Denies change in bowel habits, Denies diarrhea, Denies nausea and Denies vomiting Musculoskeletal Reports neck pain and Denies numbness Comments: Pain radiating down his left arm. Integumentary/Breasts Denies erythema and Denies rash Neurologic Denies confusion, Denies dizziness, Denies frequent falls, Denies focal weakness and Denies numbness Psychiatric Denies confusion Endocrine Denies fatigue Allergic/Immunologic Denies wheezing [facility] Medical History (Updated 08/09/18 @ 05:45 by Kevin Wan MD) DJD (degenerative joint disease), cervical (Acute) Hypertension (Acute) Kidney stones (Acute) No significant past surgical history (Acute) Tobacco abuse (Chronic) Social History Smoking Status: Current every day smoker alcohol intake: current substance use type: does not use Social History Smoking Status: Current every day smoker alcohol intake: current substance use type: does not use Exam Initial Vital Signs Initial Vital Signs: Vital Signs Temperature 98.8 F 08/09/18 04:18 Pulse Rate 104 H 08/09/18 04:18 Respiratory Rate 22 08/09/18 04:18 Blood Pressure 200/101 H 08/09/18 04:18 Pulse Oximetry 99 08/09/18 04:18 Const General: cooperative and well developed Nutritional Appearance: well nourished Orientation: alert, awake and oriented x3 [facility] Head: normocephalic and atraumatic Nose: external nose normal Face and sinus: sinuses tender and face symmetric Mouth: oral mucosae normal and moist mucous membranes Throat: tonsils normal and uvula midline Eyes General: appearance normal, both eyes and all related structures Eyelids: eyelids normal Conjunctivae: conjunctivae normal Sclera: sclerae normal Pupils: PERRL EOM: EOM intact bilaterally Neck Neck: normal visual inspection, trachea midline, No lymphadenopathy, No midline deformity and No JVD Chest Chest: normal inspection of the chest and No tenderness Resp Effort & Inspection: normal respiratory effort and able to speak in complete sentences Auscultation: clear to auscultation bilaterally, no rales, no rhonchi and no wheezes Cardio Rate: regular rate Rhythm: regular rhythm Heart Sounds: no click, no gallops, no murmurs and no rubs Pulses: normal peripheral pulses GI Inspection: non-distended Palpation: soft, no hepatosplenomegaly, No guarding, No pulsatile mass and No te nder Auscultation: normal bowel sounds Back/Spine/Pelvis Back: No CVA tenderness Cervical Spine: pain with cervical ROM Thoracic/Lumbar Spine: thoracic and lumbar spine normal to inspection Skin General: no rashes or lesions noted Neuro General: alert, oriented x3 and no focal motor deficits Speech: speech normal Extrem General: full ROM, no pedal edema and no calf tenderness Course Course Narrative: The patient presented with chest and left arm pain. EKG revealed ischemic changes inferior, anterior lateral leads. The EKG findings are significantly different from a baseline EKG of 2017. The patient was given Aspirin, IV Lopressor, and topical Nitroglycerin. Pain persisted. A heparin bolus and Heparin drip were initiated. He was given IV Morphine. The topical Nitro has been replaced with a Nitro drip. A 2nd EKG continues to show the ischemic changes, but the ST depression has improved. He has an elevated Troponin. I contacted Dr. Spangler, cardiology at [facility]. She has agreed to evaluate the patient this morning with a cardiac catheterization likely to follow. I also discussed the case with hospitalist, Dr. Funes, at [facility]. He has accepted the patient. The patient was initially hypertensive, his blood pressures improved. His vitals have been stable throughout his ER evaluation. Orders Ordered: ED Orders 08/09/18 EKG-12 Lead Stat 08/09/18 04:25 XR chest 1V Stat EKG-12 Lead Stat 08/09/18 04:30 Acetaminophen Stat Complete Blood Count AUTO DIFF Stat Comprehensive Metabolic Panel Stat D Dimer Stat Lipase Stat Troponin & CK Cardiac Panel Stat Sodium Chloride (Normal Saline 0.9%) 1,000 mls @ 150 mls/hr IV CONT ROSALBA Last Admin: 08/09/18 04:38 Dose: 150 mls/hr Heparin Sodium/Dextrose (Heparin Drip) 25,000 unit in 500 mls @ 20 mls/hr IV CONT ROSALBA; Protocol Last Admin: 08/09/18 04:57 Dose: 1,000 units/hr, 20 mls/hr Nitroglycerin (Nitroglycerin) 50 mg in 250 mls @ 1.5 mls/hr IV TITRATE ROSALBA; Protocol Last Admin: 08/09/18 05:20 Dose: 5 mcg/min, 1.5 mls/hr Discontinued Medications Aspirin (Aspirin Chew) 324 mg PO NOW ONE Stop: 08/09/18 04:26 Last Admin: 08/09/18 04:33 Dose: 324 mg Heparin Sodium (Porcine) (Heparin) 5,000 unit IV NOW ONE Stop: 08/09/18 04:52 Last Admin: 08/09/18 04:56 Dose: 5,000 unit Metoprolol Tartrate (Lopressor) 5 mg IV Q5M [facility] Stop: 08/09/18 04:41 Last Admin: 08/09/18 04:48 Dose: 5 mg Admin: 08/09/18 04:42 Dose: 5 mg Admin: 08/09/18 04:34 Dose: 5 mg Morphine Sulfate (Morphine) 4 mg IV NOW ONE Stop: 08/09/18 04:59 Last Admin: 08/09/18 05:01 Dose: 4 mg Morphine Sulfate (Morphine) 4 mg IV NOW ONE Stop: 08/09/18 06:10 Last Admin: 08/09/18 06:11 Dose: 4 mg Nitroglycerin (Nitro-Bid) 1 inch TOP NOW ONE Stop: 08/09/18 04:26 Last Admin: 08/09/18 04:32 Dose: 1 inch Vital Signs - 8 hr 08/09/18 04:18 08/09/18 04:40 08/09/18 04:45 Temperature 98.8 F Pulse Rate 104 H 86 83 Respiratory Rate 22 15 15 Blood Pressure 200/101 H Blood Pressure [Right Arm] 160/87 H 160/87 H Pulse Oximetry 99 97 97 08/09/18 04:50 08/09/18 04:55 08/09/18 05:00 Temperature Pulse Rate 80 76 74 Respiratory Rate 15 14 13 Blood Pressure Blood Pressure [Right Arm] 167/85 H 158/92 H 164/91 H Pulse Oximetry 97 95 97 08/09/18 05:15 08/09/18 05:25 08/09/18 05:40 Temperature Pulse Rate 77 82 83 Respiratory Rate 15 12 16 Blood Pressure Blood Pressure [Right Arm] 171/89 H 158/81 H 152/84 H Pulse Oximetry 97 96 94 08/09/18 05:45 08/09/18 05:52 Temperature Pulse Rate 81 83 Respiratory Rate 14 19 Blood Pressure Blood Pressure [Right Arm] 149/82 H 144/84 H Pulse Oximetry 94 94 MDM - Neck Pain/Injury Lab Data Result diagrams: 08/09/18 04:30 08/09/18 04:30 Lab Results 08/09/18 08/09/18 08/09/18 Range/Units 04:30 04:30 04:30 WBC 16.1 H (4.5-11.0) X10^3/uL RBC 4.62 (4.5-5.9) X10^6/uL Hgb 15.3 (13.5-17.5) g/dL Hct 44.0 (41-53) % MCV 95.2 (80-100) fL MCH 33.1 (26-34) PG MCHC 34.7 (30-36) % RDW 12.9 (11.6-14.8) % Plt Count 280 (150-400) X10^3/uL Neut % (Auto) 85.1 H (50-75) % Lymph % (Auto) 6.2 L (25-40) % Bradford % (Auto) 8.0 (3-14) % Eos % (Auto) 0.4 L (2-4) % Baso % (Auto) 0.3 (0-2) % Neut # (Auto) 08038 H (4829-4255) /uL Lymph # (Auto) 1000 L (3590-8262) /uL Bradford # (Auto) 1300 H (0-900) /uL Eos # (Auto) 100 (0-450) /uL Baso # (Auto) 100 (0-100) /uL D-Dimer 223 (<230) ng/mL Sodium 138 (137-145) mmol/L Potassium 3.9 (3.4-5.1) mmol/L Chloride 105 (98-107) mmol/L Carbon Dioxide 22 (22-32) mmol/L BUN 24 H (9-20) mg/dL Creatinine 1.20 (0.66-1.25) mg/dL Estimated GFR > 60.0 (>60) mL/min BUN/Creatinine Ratio 20.0 (6-22) Glucose 200 H (70-100) mg/dL Calcium 9.6 (8.4-10.2) mg/dL Total Bilirubin 0.5 (0.2-1.3) mg/dL AST 41 (17-59) IU/L ALT 36 (21-72) IU/L Alkaline Phosphatase 89 (38-126) U/L Total Creatine Kinase 366 H (55-170) U/L CK-MB (CK-2) 9.86 H (<2.37) ng/mL CK-MB (CK-2) Rel Index 2.7 (1.5-5.0) % Troponin I 0.869 H* (0.01-0.034) ng/mL Total Protein 8.2 (6.3-8.2) g/dL Albumin 4.7 (3.5-5.0) g/dL Globulin 3.5 (1.7-4.1) g/dL Albumin/Globulin Ratio 1.3 (1.0-2.8) Lipase 296 (23-300) U/L Acetaminophen (10-30) ug/mL 08/09/18 Range/Units 04:30 WBC (4.5-11.0) X10^3/uL RBC (4.5-5.9) X10^6/uL Hgb (13.5-17.5) g/dL Hct (41-53) % MCV (80-100) fL MCH (26-34) PG MCHC (30-36) % RDW (11.6-14.8) % Plt Count (150-400) X10^3/uL Neut % (Auto) (50-75) % Lymph % (Auto) (25-40) % Bradford % (Auto) (3-14) % Eos % (Auto) (2-4) % Baso % (Auto) (0-2) % Neut # (Auto) (7247-0375) /uL Lymph # (Auto) (5974-1495) /uL Bradford # (Auto) (0-900) /uL Eos # (Auto) (0-450) /uL Baso # (Auto) (0-100) /uL D-Dimer (<230) ng/mL Sodium (137-145) mmol/L Potassium (3.4-5.1) mmol/L Chloride (98-107) mmol/L Carbon Dioxide (22-32) mmol/L BUN (9-20) mg/dL Creatinine (0.66-1.25) mg/dL Estimated GFR (>60) mL/min BUN/Creatinine Ratio (6-22) Glucose (70-100) mg/dL Calcium (8.4-10.2) mg/dL Total Bilirubin (0.2-1.3) mg/dL AST (17-59) IU/L ALT (21-72) IU/L Alkaline Phosphatase (38-126) U/L Total Creatine Kinase (55-170) U/L CK-MB (CK-2) (<2.37) ng/mL CK-MB (CK-2) Rel Index (1.5-5.0) % Troponin I (0.01-0.034) ng/mL Total Protein (6.3-8.2) g/dL Albumin (3.5-5.0) g/dL Globulin (1.7-4.1) g/dL Albumin/Globulin Ratio (1.0-2.8) Lipase (23-300) U/L Acetaminophen < 10 L (10-30) ug/mL Imaging Data Chest x-ray: Attestation: I personally reviewed and interpreted this imaging study as follows: My impression: Normal chest x-ray. ECG Data Attestation: I personally reviewed and interpreted this ECG as follows: (EKG 1.: Sinus tachycardia rate 102 beats per minute. LAFB. ST depression leads 2, [address] depression anterior lateral leads. EKG 2. Normal sinus rhythm rate 75 beats per minute. incomplete RBBB. LAFB. ST depression in inferior, anterior and lateral leads. ) Critical Care Time Critical Care Time: Yes Total Critical Care Time: 60 Attestation: The patient was the source of his medical history. Past medical records and former EKGs were reviewed. Labs were reviewed. Multiple clinic decisions have been made for his ongoing care. I have discussed his clinical situation with the hospitalist and the machine cloth examiner at the patient who will be seeing him in transfer. Discharge Plan Departure Patient Disposition: [facility] Clinical Impression: Non-ST elevated myocardial infarction (non-STEMI) Prescriptions: No Action docusate sodium 250 MG capsule 250 mg PO QDAY Qty: 0 RF: 0 indomethacin 75 MG capsule, extended release 75 mg PO BID Qty: 0 RF: 0 lisinopril 20 mg Tablet 20 mg PO DAILY RF: 0 tamsulosin 0.4 mg capsule,extended release 24hr 0.4 mg PO DAILY RF: 0 nitroglycerin 0.4 mg tablet, sublingual 0.4 mg SL Q5-15M PRN (Reason: chest pain) Qty: 14 RF: 0 aspirin 81 mg tablet,chewable 81 mg PO DAILY Qty: 10 RF: 0 oxycodone-acetaminophen [Percocet] 5-325 mg tablet 1 tab PO Q4-6H PRN (Reason: pain) Qty: 20 RF: 0 ondansetron 4 mg tablet,disintegrating 4 mg PO TID-QID PRN (Reason: nausea and vomiting) Qty: 20 RF: 0 Referrals: Daniella Sanchez MD [Primary Care Provider] -
[2018-08-09 05:18] LABS: Acetaminophen < 10 ug/mL (10-30)
[2018-08-09] MEDS: NITROGLYCERIN 50 MG/250 ML INFUS..BTL IV (05:20)
--- NOTE | 2018-08-09 05:30 | PC.NURSE ---
aware of patients weight 74.8kg and ordered heparin bolus of 5000 units and heparin gtt at 1000 units per hour.
--- NOTE | 2018-08-09 05:36 | PC.NURSE ---
aware of patients weight 74.8kg but he still ordered heparin bolus of 5000 units and heparin gtt at 1000 units per hour.
[2018-08-09 05:42] LABS: Troponin I 0.869 ng/mL (0.01-0.034)
--- NOTE | 2018-08-09 07:04 | PC.NURSE ---
HE said his pain in both arms was better but that the pain in his neck and under his arm pits was still there and not much better.Nitro gtt was infusing at 60mcg and heparin gtt at 1000 units per hour per order.
== END 2018-08-09 06:30 | disposition short-term general hospital (02) ==
PROVIDERS: Emergency Provider Emergency Medicine; PCP Internal Medicine
DX: I21.4 Non-ST elevation (NSTEMI) myocardial infarction (principal); M54.9 Dorsalgia, unspecified; M79.602 Pain in left arm
CPT/HCPCS: 36591; 71045; 80053; 80329; 82550; 82553; 83690; 84484; 85025; 85379; 93005; 93010; 96365; 96366; 96368; 99285; 99291; 99292; G0480; J1644; J2270

== ENCOUNTER 2018-08-12 20:02 | Emergency (ER) | payer OTHER, SELFPAY ==
[2018-08-12 20:10] VITALS: BP 173/94; PULSE 101; RESP 18; O2SAT 99
[2018-08-12 20:47] LABS: WBC Urine None Seen (0-5/HPF)
[2018-08-12 21:06] LABS: Bacteria Urine Occasional (0-1); Culture Indicated Urine Cult Not Indicated; Mucus Urine 1+ (Negative); RBC Urine 1-5/HPF (0-5/HPF)
--- NOTE | 2018-08-12 21:46 | ED.MALEGU ---
HPI - Male Genitourinary General Chief complaint: Urogenital-Male Stated complaint: thinks he has kidney stones Time Seen by Provider: 08/12/18 21:45 Source: patient Mode of arrival: ambulatory Limitations: no limitations History of Present Illness HPI Narrative: Patient is a 58-year-old male with a history of kidney stones. He also recently had a cardiac catheterization secondary to cardiovascular disease. Patient is here because he states that he feels like he is having another kidney stone. He states that the only reason he has come in is because he was also having some burning with urination he was concerned that he may be having an infection. He also states that he has been having some urinary frequency and urgency and also dribbling. He has known prostate problems. Related Data Home Medications Medication Instructions Recorded Confirmed docusate sodium 250 mg PO QDAY #0 08/03/17 11/14/17 indomethacin 75 mg PO BID #0 08/03/17 11/14/17 lisinopril 20 mg PO DAILY 11/14/17 11/14/17 tamsulosin 0.4 mg PO DAILY 11/14/17 11/14/17 Previous Rx's Medication Instructions Recorded aspirin 81 mg PO DAILY #10 tab 11/14/17 nitroglycerin 0.4 mg SL Q5-15M PRN #14 tab 11/14/17 ondansetron 4 mg PO TID-QID PRN #20 tab 05/21/18 oxycodone-acetaminophen [Percocet] 1 tab PO Q4-6H PRN #20 tab 05/21/18 Allergies Allergy/AdvReac Type Severity Reaction Status Date / Time No Known Drug Allergies Allergy Verified 11/14/17 13:01 Review of Systems Constitutional Denies fever(s) ENT Ears, Nose, Mouth, and Throat: Denies vertigo and Denies dizziness Cardiovascular Denies chest pain and Denies dyspnea Respiratory Denies dyspnea Gastrointestinal Gastrointestinal: Denies nausea and Denies vomiting Genitourinary Reports dysuria, Reports urinary frequency, Reports urinary hesitancy and Reports urinary urgency Integumentary/Breasts Denies rash Neurologic Denies vertigo and Denies dizziness Allergic/Immunologic Denies urticaria [facility] Medical History DJD (degenerative joint disease), cervical (Acute) Hypertension (Acute) Kidney stones (Acute) No significant past surgical history (Acute) Tobacco abuse (Chronic) Social History Smoking Status: Current every day smoker alcohol intake: current substance use type: does not use Social History Smoking Status: Current every day smoker alcohol intake: current substance use type: does not use Exam Initial Vital Signs Initial Vital Signs: Vital Signs Pulse Rate 101 H 08/12/18 20:10 Respiratory Rate 18 08/12/18 20:10 Blood Pressure 173/94 H 08/12/18 20:10 Pulse Oximetry 99 08/12/18 20:10 Const General: cooperative, comfortable, well developed, well groomed and No acute distress Orientation: alert, awake and oriented x3 Resp Effort & Inspection: normal respiratory effort Cardio Rate: regular rate GI Inspection: non-distended Palpation: soft, No firm and No tender Skin Other: Bruising in his right inguinal area consistent with his recent history of a cardiac catheterization. Extrem General: normal to inspection and capillary refill normal Psych Appearance: grossly normal and well kempt Scores GCS [place] coma scale eye opening: Spontaneous Verna coma scale verbal response: Orientated [place] coma scale motor response: Obey commands [place] coma scale total score: 15 Course Orders Ordered: ED Orders 08/12/18 20:10 Urine Microscopic Stat Vital Signs - 8 hr 08/12/18 20:10 08/12/18 22:26 Pulse Rate 101 H 91 H Respiratory Rate 18 18 Blood Pressure 173/94 H Blood Pressure [Left Arm] 155/94 H Pulse Oximetry 99 96 MDM - Male Genitourinary Lab Data Attestation: I reviewed the patient's lab results. Lab Results 08/12/18 Range/Units 20:10 Urine RBC 1-5/hpf (0-5/HPF) Urine WBC None seen (0-5/HPF) Urine Bacteria Occasional (0-1) (None) Urine Mucus 1+ H (Negative) Ur Culture Indicated? Cult not indicated Urine Dip Bedside Urine Glucose Negative Bedside Urine Bilirubin - Negative Bedside Urine Ketone - Negative Urine Specific [place] 1.020 Bedside Urine Occult Blood + Bedside Urine pH 6.0 Bedside Urine Protein +/- 15 Bedside Urine Urobilinogen - Negative Bedside Urine Nitrite - Negative Bedside Urine Leukocytes - Negative Esterase MDM Narrative Medical decision making narrative: Patient has no signs of infection on his urine. He did have a bladder scan prior to my evaluation of him which showed greater than 1000 cc. He did have a Robles catheter placed. He stated that he did not feel like he was have any problems with urinary retention. He does feel better after having the Robles in place. No indication for antibiotics. I discussed with him the options he had with regard to the Robles catheter to include keeping it in versus removing it here in the emergency department. He was informed that if we removed it here in the emergency department there would be a chance that he would retain urine and have to return to have another Robles catheter placed. I also discussed that he could potentially start urinating normally on his phone afterwards. We also discussed that if he kept a catheter in he could follow up with his primary doctor next week to have it removed in his chances of voiding afterwards would be higher. After this discussion the patient opted to have the catheter removed here in the ER. He was given return precautions and follow-up instructions. He expressed understanding and agreement with plan. Discharge Plan Departure Patient Disposition: Home Clinical Impression: Renal colic, Urinary retention Discharge Date/Time: 08/12/18 23:07 Interventions: ED Discharge Assessment Last Done: 08/12/18 23:07 Instructions: DI for Kidney Stones, DI for Urinary Retention in Men Activity Restrictions/Additional Instructions: On Tuesday morning you need to talk with your primary care doctor about a referral to see Urology. There is the chance that since we removed the Robles here in the emergency department that you will retain urine again. Return to the emergency department if you feel fevers, vomiting, lower abdominal pain, inability to urinate or any other new or concerning symptoms. Prescriptions: No Action docusate sodium 250 MG capsule 250 mg PO QDAY Qty: 0 RF: 0 indomethacin 75 MG capsule, extended release 75 mg PO BID Qty: 0 RF: 0 lisinopril 20 mg Tablet 20 mg PO DAILY RF: 0 tamsulosin 0.4 mg capsule,extended release 24hr 0.4 mg PO DAILY RF: 0 nitroglycerin 0.4 mg tablet, sublingual 0.4 mg SL Q5-15M PRN (Reason: chest pain) Qty: 14 RF: 0 aspirin 81 mg tablet,chewable 81 mg PO DAILY Qty: 10 RF: 0 oxycodone-acetaminophen [Percocet] 5-325 mg tablet 1 tab PO Q4-6H PRN (Reason: pain) Qty: 20 RF: 0 ondansetron 4 mg tablet,disintegrating 4 mg PO TID-QID PRN (Reason: nausea and vomiting) Qty: 20 RF: 0 Referrals: Daniella Sanchez MD [Primary Care Provider] -
--- NOTE | 2018-08-12 21:55 | PC.NURSE ---
Pt reports hx of several kidney stones in the past. Pt had cardiac surgery recently and had IV hydration during admission. Pt reports urinary sx of dysuria, urgency, frequency, dark urine, feels unable to complete emptying the bladder adequately, L flank pain, mild nausea. Pt here to ensure he does not have infection.
[2018-08-12 22:26] VITALS: BP 155/94; PULSE 91; RESP 18; O2SAT 96
== END 2018-08-12 23:07 | disposition home or self-care (01) ==
PROVIDERS: Emergency Provider Emergency Medicine; PCP Internal Medicine
DX: N23 Unspecified renal colic (principal)
CPT/HCPCS: 51798; 81003; 81015; 99283

== ENCOUNTER 2018-08-18 16:05 | Emergency (ER) | payer OTHER, SELFPAY ==
[2018-08-18 16:22] VITALS: BP 153/81; PULSE 85; RESP 18; TEMP 37.3; O2SAT 97; BMI 25.5
--- NOTE | 2018-08-18 16:24 | ED.MALEGU ---
HPI - Male Genitourinary <Brittany Ruff PA-C - Last Filed: 08/18/18 20:58> General Chief complaint: Urogenital-Male Stated complaint: GROIN AREA PAIN Time Seen by Provider: 08/18/18 16:17 Source: patient Mode of arrival: ambulatory Limitations: no limitations History of Present Illness HPI Narrative: This 58-year-old male returns to ED secondary to possible kidney stone, unable to be seen by PCP. He states that he was seen here 9 days ago with chest and arm pain and found to be having IL. He has since had stents placed and was sent home. Since the stents were placed, he had been having difficulty urinating and retention. He was seen here on the and his bladder was full and he had some hematuria. He states that he was having pain mainly in the groin as well as the left flank and did have dysuria. He states that his bladder was drained and no infection was found. He states that he did follow up with his primary care provider on Tuesday and labs were repeated and they did find infection at that point. He was placed on antibiotics for 3 days as well as OTC Pyridium. He states that he has had persistent pain in the suprapubic area but also developed left flank pain that he was concerned about might be recurrent kidney stone. He states normally he would treat this at home but unable to take his usual NSAIDs after heart stents. He states that he has continued to have sensation of urinary retention, and on Tuesday he had a lot of urinary frequency about every 1/2 hour. He also developed diarrhea that day each time he urinated, and felt bloated. He states that yesterday, the diarrhea had resolved and urinary frequency much improved and was able to sleep a full night without getting up. He states that he continues to have constant groin pain with waxing and waning pain in his left flank area, now more in the right flank since this afternoon. He has had night sweats but no known fevers. He states he has poor appetite which is typical when he has a stone, but not any nausea or vomiting. He states that he was again unable to get in with his PCP today and was sent here for further evaluation and CT scan. He states that he feels like he is urinating normally now, but pain is persistent the, states constant 5-8 in the groin, waxing and waning from nonexistent to a 6/10 in the flanks. He denies any chest pain, dyspnea or other new symptoms today Related Data Home Medications Medication Instructions Recorded Confirmed docusate sodium 250 mg PO QDAY #0 08/03/17 11/14/17 indomethacin 75 mg PO BID #0 08/03/17 11/14/17 lisinopril 20 mg PO DAILY 11/14/17 11/14/17 tamsulosin 0.4 mg PO DAILY 11/14/17 11/14/17 ticagrelor [Brilinta] 08/18/18 08/18/18 Previous Rx's Medication Instructions Recorded aspirin 81 mg PO DAILY #10 tab 11/14/17 nitroglycerin 0.4 mg SL Q5-15M PRN #14 tab 11/14/17 ondansetron 4 mg PO TID-QID PRN #20 tab 05/21/18 oxycodone-acetaminophen [Percocet] 1 tab PO Q4-6H PRN #20 tab 05/21/18 amoxicillin-pot clavulanate 1 tab PO Q12H #20 tab 08/18/18 oxycodone-acetaminophen [Endocet] 1 tab PO Q4-6H PRN #20 tab MDD 9 08/18/18 Allergies Allergy/AdvReac Type Severity Reaction Status Date / Time No Known Drug Allergies Allergy Verified 11/14/17 13:01 Review of Systems <Brittany Ruff PA-C - Last Filed: 08/18/18 20:58> Review of Systems ROS Unobtainable: All systems reviewed & are unremarkable except as noted in HPI and below PFSH <Brittany Ruff PA-C - Last Filed: 08/18/18 20:58> Medical History (Updated 08/18/18 @ 19:04 by Brittany Ruff PA-C) CAD (coronary artery disease) (Chronic) DJD (degenerative joint disease), cervical (Chronic) Hypertension (Chronic) Kidney stones (Chronic) Tobacco abuse (Chronic) No significant past surgical history (Inactive) Surgical History (Updated 08/18/18 @ 16:58 by Brittany Ruff PA-C) H/O heart artery stent (Resolved) Social History Smoking Status: Current some day smoker alcohol intake: current substance use type: does not use Social History Smoking Status: Current some day smoker alcohol intake: current substance use type: does not use Comment: quit tob 08/11 Exam <Brittany Ruff PA-C - Last Filed: 08/18/18 20:58> Narrative Exam Narrative: GENERAL APPEARANCE: Patient mildly uncomfortable, in NAD HEENT: PERRL, EOMI, no scleral icterus, normal oropharynx NECK: Supple LUNGS: Clear to auscultation bilaterally. HEART: Rate and rhythm regular, normal S1 and S2, no S3 or S4. ABDOMEN: Soft, nondistended, bowel sounds present x 4 quadrants, no masses palpable, no hepatosplenomegaly. moderate suprapubic tenderness without guarding or rebound, mild right CVAT, none on the left EXTREMITIES: No edema, no calf tenderness DERMATOLOGIC: No jaundice or exanthem NEUROLOGIC: Alert and oriented with normal speech and coordination Initial Vital Signs Initial Vital Signs: Vital Signs Temperature 99.2 F 08/18/18 16:22 Pulse Rate 85 08/18/18 16:22 Respiratory Rate 18 08/18/18 16:22 Blood Pressure 153/81 H 08/18/18 16:22 Pulse Oximetry 97 08/18/18 16:22 <Erlin Mckay DO - Last Filed: 08/19/18 01:35> Initial Vital Signs Initial Vital Signs: Vital Signs Temperature 99.2 F 08/18/18 16:22 Pulse Rate 85 08/18/18 16:22 Respiratory Rate 18 08/18/18 16:22 Blood Pressure 153/81 H 08/18/18 16:22 Pulse Oximetry 97 08/18/18 16:22 Course <Brittany Ruff PA-C - Last Filed: 08/18/18 20:58> Additional Information: Patient is feeling markedly improved after IV lidocaine. This has helped him in the past. He does feel his pain is consistent with previous stones. He does have bacteriuria though joshua dysuria and urinary frequency resolved. He was recently on Bactrim. He is afebrile, not vomiting, does not feel like he needs to be hospitalized. I spoke with Dr. Whyte who is on-call for patient's urologist Dr. Couch and reviewed lab, CT and exam findings. He agrees reasonable to treat patient as an outpatient and have him follow up in their clinic. Patient will start Augmentin. Given prescription for Endocet and advised to continue avoiding NSAIDs given his recent cardiac stent and on Brilinta. He already has Zofran and Flomax at home. He agreed to return to ED if any acutely worsening symptoms in the interim. Orders Ordered: ED Orders 08/18/18 16:50 Urinalysis and Microscopic Stat Urine Culture Stat 08/18/18 16:59 CT kidney ureter bladder (KUB) Stat 08/18/18 17:02 Complete Blood Count AUTO DIFF Stat Comprehensive Metabolic Panel Stat Lactate (Lactic Acid) Stat Discontinued Medications Lidocaine HCl 5.5 ml/ Sodium (Chloride) 55.5 mls @ 333 mls/hr IV NOW ONE Stop: 08/18/18 16:42 Last Infusion: 08/18/18 17:51 Dose: 0 mls/hr Admin: 08/18/18 17:24 Dose: 333 mls/hr Sodium Chloride (Normal Saline 0.9%) 1,000 mls @ 500 mls/hr IV BOLUS ONE Stop: 08/18/18 18:45 Last Infusion: 08/18/18 19:27 Dose: 0 mls/hr Admin: 08/18/18 17:24 Dose: 500 mls/hr Vital Signs - 8 hr 08/18/18 17:51 08/18/18 19:00 08/18/18 19:27 Pulse Rate 74 72 73 Respiratory Rate 16 16 18 Blood Pressure 144/70 H Blood Pressure [Left Arm] 139/76 144/70 H Pulse Oximetry 98 98 99 <Erlin Mckay, - Last Filed: 08/19/18 01:35> Orders Ordered: ED Orders 08/18/18 16:50 Urinalysis and Microscopic Stat Urine Culture Stat 08/18/18 16:59 CT kidney ureter bladder (KUB) Stat 08/18/18 17:02 Complete Blood Count AUTO DIFF Stat Comprehensive Metabolic Panel Stat Lactate (Lactic Acid) Stat Discontinued Medications Lidocaine HCl 5.5 ml/ Sodium (Chloride) 55.5 mls @ 333 mls/hr IV NOW ONE Stop: 08/18/18 16:42 Last Infusion: 08/18/18 17:51 Dose: 0 mls/hr Admin: 04/26/19 17:24 Dose: 333 mls/hr Sodium Chloride (Normal Saline 0.9%) 1,000 mls @ 500 mls/hr IV BOLUS ONE Stop: 08/18/18 18:45 Last Infusion: 08/18/18 19:27 Dose: 0 mls/hr Admin: 08/18/18 17:24 Dose: 500 mls/hr Vital Signs - 8 hr 08/18/18 17:51 08/18/18 19:00 08/18/18 19:27 Pulse Rate 74 72 73 Respiratory Rate 16 16 18 Blood Pressure 144/70 H Blood Pressure [Left Arm] 139/76 144/70 H Pulse Oximetry 98 98 99 MDM - Male Genitourinary <Brittany Ruff PA-C - Last Filed: 08/18/18 20:58> Lab Data Attestation: I reviewed the patient's lab results. Result diagrams: 08/18/18 17:02 08/18/18 17:02 Lab Results 08/18/18 08/18/18 08/18/18 Range/Units 16:50 17:02 17:02 WBC 8.8 (4.5-11.0) X10^3/uL RBC 4.21 L (4.5-5.9) X10^6/uL Hgb 14.0 (13.5-17.5) g/dL Hct 40.7 L (41-53) % MCV 96.7 (80-100) fL MCH 33.3 (26-34) PG MCHC 34.4 (30-36) % RDW 12.5 (11.6-14.8) % Plt Count 382 (150-400) X10^3/uL Neut % (Auto) 67.4 (50-75) % Lymph % (Auto) 14.8 L (25-40) % [place] % (Auto) 11.1 (3-14) % Eos % (Auto) 6.0 H (2-4) % Baso % (Auto) 0.7 (0-2) % Neut # (Auto) 5900 (3040-2115) /uL Lymph # (Auto) 1300 (3333-0270) /uL [place] # (Auto) 1000 H (0-900) /uL Eos # (Auto) 500 H (0-450) /uL Baso # (Auto) 100 (0-100) /uL Sodium 142 (137-145) mmol/L Potassium 4.4 (3.4-5.1) mmol/L Chloride 109 H (98-107) mmol/L Carbon Dioxide 21 L (22-32) mmol/L BUN 25 H (9-20) mg/dL Creatinine 1.20 (0.66-1.25) mg/dL Estimated GFR > 60.0 (>60) mL/min BUN/Creatinine Ratio 20.8 (6-22) Glucose 143 H (70-100) mg/dL Lactate (0.7-2.1) mmol/L Calcium 9.5 (8.4-10.2) mg/dL Total Bilirubin 0.4 (0.2-1.3) mg/dL AST 28 (17-59) IU/L ALT 32 (21-72) IU/L Alkaline Phosphatase 106 (38-126) U/L Total Protein 7.9 (6.3-8.2) g/dL Albumin 4.4 (3.5-5.0) g/dL Globulin 3.5 (1.7-4.1) g/dL Albumin/Globulin Ratio 1.3 (1.0-2.8) Urine Color [place] Urine Appearance Slightly cloudy Urine pH TNP Ur Specific [place] TNP Urine Protein TNP Urine Glucose (UA) TNP Urine Ketones TNP Urine Occult Blood TNP Urine Nitrate TNP Urine Bilirubin TNP Urine Urobilinogen TNP Ur Leukocyte Esterase TNP Urine RBC 30-100/hpf H (0-5/HPF) Urine WBC 5-10/hpf H (0-5/HPF) Urine Bacteria Moderate (10-30) H (None) Urine Mucus 1+ H (Negative) Ur Culture Indicated? Specimen cultured Micro UA Comment 08/18/18 Range/Units 17:02 WBC (4.5-11.0) X10^3/uL RBC (4.5-5.9) X10^6/uL Hgb (13.5-17.5) g/dL Hct (41-53) % MCV (80-100) fL MCH (26-34) PG MCHC (30-36) % RDW (11.6-14.8) % Plt Count (150-400) X10^3/uL Neut % (Auto) (50-75) % Lymph % (Auto) (25-40) % [place] % (Auto) (3-14) % Eos % (Auto) (2-4) % Baso % (Auto) (0-2) % Neut # (Auto) (9853-7889) /uL Lymph # (Auto) (1734-6940) /uL [place] # (Auto) (0-900) /uL Eos # (Auto) (0-450) /uL Baso # (Auto) (0-100) /uL Sodium (137-145) mmol/L Potassium (3.4-5.1) mmol/L Chloride (98-107) mmol/L Carbon Dioxide (22-32) mmol/L BUN (9-20) mg/dL Creatinine (0.66-1.25) mg/dL Estimated GFR (>60) mL/min BUN/Creatinine Ratio (6-22) Glucose (70-100) mg/dL Lactate 1.2 (0.7-2.1) mmol/L Calcium (8.4-10.2) mg/dL Total Bilirubin (0.2-1.3) mg/dL AST (17-59) IU/L ALT (21-72) IU/L Alkaline Phosphatase (38-126) U/L Total Protein (6.3-8.2) g/dL Albumin (3.5-5.0) g/dL Globulin (1.7-4.1) g/dL Albumin/Globulin Ratio (1.0-2.8) Urine Color Urine Appearance Urine pH Ur Specific [place] Urine Protein Urine Glucose (UA) Urine Ketones Urine Occult Blood Urine Nitrate Urine Bilirubin Urine Urobilinogen Ur Leukocyte Esterase Urine RBC (0-5/HPF) Urine WBC (0-5/HPF) Urine Bacteria (None) Urine Mucus (Negative) Ur Culture Indicated? Micro UA Comment Imaging Data KUB CT: Radiologist's impression: [address] [address] [address] Scan Report Signed Patient: Joaquín Call CMR#: [id number] : 1960Acct:[id number] Age/Sex: 58 / MDate of Service: 08/18/18 Loc: ED Accession Number: [id number] Procedure: CT kidney ureter bladder (KUB) Ordering Provider: Fishfader,Brittany P.A-C PROCEDURE: CT KIDNEY URETER BLADDER (KUB) INDICATIONS: suprapubic and flank pain, h/o stones TECHNIQUE: Noncontrast 5 mm thick sections acquired from the diaphragms to the symphysis. 5 mm thick coronal and sagittal reformats were then performed. For radiation dose reduction, the following was used: automated exposure control, adjustment of mA and/or kV according to patient size. COMPARISON: [facility], CT, CT KIDNEY URETER BLADDER (KUB), 05/21/2018, 18:33. FINDINGS: Image quality: Excellent. Lung bases: Lung bases are clear. Heart size is normal. Urinary system: There is an obstructing 6 mm stone seen within the right proximal ureter. Numerous nonobstructing kidney stones are seen. The largest solitary stone on the right measures 5 mm and the largest solitary stone in the left measures 5-6 mm. Both kidneys are normal in size. Bladder wall thickness is normal; no calcified bladder stones. Other solid organs: Liver is normal in size. Gallbladder wall is not thickened. Pancreas is normal in contours. Spleen is normal in size. A low-density left adrenal adenoma is seen that measures 2 Hounsfield units and 2 cm. No right adrenal nodules. Peritoneum and bowel: Unenhanced bowel loops demonstrate normal wall thickness and caliber. No free fluid or air. Diverticulosis is seen, without findings of active diverticulitis. Incidental note is made of a normal-appearing appendix. Nodes and vessels: No retroperitoneal or mesenteric adenopathy by size criteria. Aorta and inferior vena cava are normal in caliber. Atherosclerotic calcification is noted. Abdominal wall: A mild periumbilical hernia is seen, containing fat. Pelvis: No free pelvic fluid. No inguinal hernias or adenopathy. The prostate gland is prominent measuring 6.1 cm transversely. Bones: No suspicious bony lesions. No vertebral body compression fractures. Transitional lumbar anatomy is seen, with a transitional L5 segment, with prominent sacralization on the left. IMPRESSION: There is a 6 mm stone seen within the proximal right ureter. Numerous nonobstructing bilateral kidney stones are seen. Incidental note is made of: Benign, lipid rich left adrenal adenoma Fat containing periumbilical hernia Diverticulosis is seen, without findings of active diverticulitis. 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 Dictated by: Eddie Arnett M.D. on 08/18/2018 at 16:25 Approved by: Eddie Arnett M.D. on 08/18/2018 at 16:29 <Erlin Mckay DO - Last Filed: 08/19/18 01:35> Lab Data Lab Results 08/18/18 08/18/18 08/18/18 Range/Units 16:50 17:02 17:02 WBC 8.8 (4.5-11.0) X10^3/uL RBC 4.21 L (4.5-5.9) X10^6/uL Hgb 14.0 (13.5-17.5) g/dL Hct 40.7 L (41-53) % MCV 96.7 (80-100) fL MCH 33.3 (26-34) PG MCHC 34.4 (30-36) % RDW 12.5 (11.6-14.8) % Plt Count 382 (150-400) X10^3/uL Neut % (Auto) 67.4 (50-75) % Lymph % (Auto) 14.8 L (25-40) % [place] % (Auto) 11.1 (3-14) % Eos % (Auto) 6.0 H (2-4) % Baso % (Auto) 0.7 (0-2) % Neut # (Auto) 5900 (1776-5067) /uL Lymph # (Auto) 1300 (2961-0412) /uL [place] # (Auto) 1000 H (0-900) /uL Eos # (Auto) 500 H (0-450) /uL Baso # (Auto) 100 (0-100) /uL Sodium 142 (137-145) mmol/L Potassium 4.4 (3.4-5.1) mmol/L Chloride 109 H (98-107) mmol/L Carbon Dioxide 21 L (22-32) mmol/L BUN 25 H (9-20) mg/dL Creatinine 1.20 (0.66-1.25) mg/dL Estimated GFR > 60.0 (>60) mL/min BUN/Creatinine Ratio 20.8 (6-22) Glucose 143 H (70-100) mg/dL Lactate (0.7-2.1) mmol/L Calcium 9.5 (8.4-10.2) mg/dL Total Bilirubin 0.4 (0.2-1.3) mg/dL AST 28 (17-59) IU/L ALT 32 (21-72) IU/L Alkaline Phosphatase 106 (38-126) U/L Total Protein 7.9 (6.3-8.2) g/dL Albumin 4.4 (3.5-5.0) g/dL Globulin 3.5 (1.7-4.1) g/dL Albumin/Globulin Ratio 1.3 (1.0-2.8) Urine Color [place] Urine Appearance Slightly cloudy Urine pH TNP Ur Specific [place] TNP Urine Protein TNP Urine Glucose (UA) TNP Urine Ketones TNP Urine Occult Blood TNP Urine Nitrate TNP Urine Bilirubin TNP Urine Urobilinogen TNP Ur Leukocyte Esterase TNP Urine RBC 30-100/hpf H (0-5/HPF) Urine WBC 5-10/hpf H (0-5/HPF) Urine Bacteria Moderate (10-30) H (None) Urine Mucus 1+ H (Negative) Ur Culture Indicated? Specimen cultured Micro UA Comment 08/18/18 Range/Units 17:02 WBC (4.5-11.0) X10^3/uL RBC (4.5-5.9) X10^6/uL Hgb (13.5-17.5) g/dL Hct (41-53) % MCV (80-100) fL MCH (26-34) PG MCHC (30-36) % RDW (11.6-14.8) % Plt Count (150-400) X10^3/uL Neut % (Auto) (50-75) % Lymph % (Auto) (25-40) % [place] % (Auto) (3-14) % Eos % (Auto) (2-4) % Baso % (Auto) (0-2) % Neut # (Auto) (2093-9576) /uL Lymph # (Auto) (1431-9209) /uL [place] # (Auto) (0-900) /uL Eos # (Auto) (0-450) /uL Baso # (Auto) (0-100) /uL Sodium (137-145) mmol/L Potassium (3.4-5.1) mmol/L Chloride (98-107) mmol/L Carbon Dioxide (22-32) mmol/L BUN (9-20) mg/dL Creatinine (0.66-1.25) mg/dL Estimated GFR (>60) mL/min BUN/Creatinine Ratio (6-22) Glucose (70-100) mg/dL Lactate 1.2 (0.7-2.1) mmol/L Calcium (8.4-10.2) mg/dL Total Bilirubin (0.2-1.3) mg/dL AST (17-59) IU/L ALT (21-72) IU/L Alkaline Phosphatase (38-126) U/L Total Protein (6.3-8.2) g/dL Albumin (3.5-5.0) g/dL Globulin (1.7-4.1) g/dL Albumin/Globulin Ratio (1.0-2.8) Urine Color Urine Appearance Urine pH Ur Specific [place] Urine Protein Urine Glucose (UA) Urine Ketones Urine Occult Blood Urine Nitrate Urine Bilirubin Urine Urobilinogen Ur Leukocyte Esterase Urine RBC (0-5/HPF) Urine WBC (0-5/HPF) Urine Bacteria (None) Urine Mucus (Negative) Ur Culture Indicated? Micro UA Comment Discharge Plan Departure Patient Disposition: Home Clinical Impression: Kidney stone on left side, Kidney stone on right side UTI (urinary tract infection) Qualifiers: Urinary tract infection type: site unspecified Hematuria presence: with hematuria Qualified Code(s): N39.0 - Urinary tract infection, site not specified Discharge Date/Time: 08/18/18 19:27 Interventions: ED Discharge Assessment Last Done: 08/18/18 19:27 Instructions: DI for Kidney Infection, DI for Kidney Stones Activity Restrictions/Additional Instructions: Please burr picker the antibiotic amoxicillin/clavulanic acid that I have sent to [facility] for you. Take 1 every 12 hours. Take your Zofran as needed. Take your Flomax once daily. Take the oxycodone/acetaminophen for pain as needed but do not drive as it can make you sleepy. Strain your urine. You should return to the ED as we talked about if you have acutely worsening symptoms, or inability to urinate again, or new symptoms such as fever or vomiting. please call Dr. Couch's office 1st thing on Tuesday morning and let them know that you were in the emergency room today with an infection and obstructing kidney stone and that Dr. Whyte was consulted and advised you to be seen there for follow up on Tuesday Thank you for your service! Prescriptions: New oxycodone-acetaminophen [Endocet] 5-325 mg tablet 1 tab PO Q4-6H MDD 9 PRN (Reason: kidney stones) Qty: 20 RF: 0 amoxicillin-pot clavulanate 875-125 mg tablet 1 tab PO Q12H Qty: 20 RF: 0 No Action docusate sodium 250 MG capsule 250 mg PO QDAY Qty: 0 RF: 0 indomethacin 75 MG capsule, extended release 75 mg PO BID Qty: 0 RF: 0 lisinopril 20 mg Tablet 20 mg PO DAILY RF: 0 tamsulosin 0.4 mg capsule,extended release 24hr 0.4 mg PO DAILY RF: 0 nitroglycerin 0.4 mg tablet, sublingual 0.4 mg SL Q5-15M PRN (Reason: chest pain) Qty: 14 RF: 0 aspirin 81 mg tablet,chewable 81 mg PO DAILY Qty: 10 RF: 0 oxycodone-acetaminophen [Percocet] 5-325 mg tablet 1 tab PO Q4-6H PRN (Reason: pain) Qty: 20 RF: 0 ondansetron 4 mg tablet,disintegrating 4 mg PO TID-QID PRN (Reason: nausea and vomiting) Qty: 20 RF: 0 Brilinta 90 mg tablet RF: 0 Referrals: Daniella Sanchez MD [Primary Care Provider] - <Erlin Mckay DO - Last Filed: 08/19/18 01:35> [facility] Attestation: I was available for consultation during this patient's emergency department encounter
--- NOTE | 2018-08-18 16:59 | ED_ITS ---
HPI - Male Genitourinary <Brittany Ruff PA-C - Last Filed: 08/18/18 20:58> General Chief complaint: Urogenital-Male Stated complaint: GROIN AREA PAIN Time Seen by Provider: 08/18/18 16:17 Source: patient Mode of arrival: ambulatory Limitations: no limitations History of Present Illness HPI Narrative: This 58-year-old male returns to ED secondary to possible kidney stone, unable to be seen by PCP. He states that he was seen here 9 days ago with chest and arm pain and found to be having DE. He has since had stents placed and was sent home. Since the stents were placed, he had been having difficulty urinating and retention. He was seen here on the and his bladder was full and he had some hematuria. He states that he was having pain mainly in the groin as well as the left flank and did have dysuria. He states that his bladder was drained and no infection was found. He states that he did follow up with his primary care provider on Tuesday and labs were repeated and they did find infection at that point. He was placed on antibiotics for 3 days as well as OTC Pyridium. He states that he has had persistent pain in the suprapubic area but also developed left flank pain that he was concerned about might be recurrent kidney stone. He states normally he would treat this at home but unable to take his usual NSAIDs after heart stents. He states that he has continued to have sensation of urinary retention, and on Tuesday he had a lot of urinary frequency about every 1/2 hour. He also developed diarrhea that day each time he urinated, and felt bloated. He states that yesterday, the diarrhea had resolved and urinary frequency much improved and was able to sleep a full night without getting up. He states that he continues to have constant groin pain with waxing and waning pain in his left flank area, now more in the right flank since this afternoon. He has had night sweats but no known fevers. He states he has poor appetite which is typical when he has a stone, but not any nausea or vomiting. He states that he was again unable to get in with his PCP today and was sent here for further evaluation and CT scan. He states that he feels like he is urinating normally now, but pain is persistent the, states constant 5-8 in the groin, waxing and waning from nonexistent to a 6/10 in the flanks. He denies any chest pain, dyspnea or other new symptoms today Related Data Home Medications Medication Instructions Recorded Confirmed docusate sodium 250 mg PO QDAY #0 08/03/17 11/14/17 indomethacin 75 mg PO BID #0 08/03/17 11/14/17 lisinopril 20 mg PO DAILY 11/14/17 11/14/17 tamsulosin 0.4 mg PO DAILY 11/14/17 11/14/17 ticagrelor [Brilinta] 08/18/18 08/18/18 Previous Rx's Medication Instructions Recorded aspirin 81 mg PO DAILY #10 tab 11/14/17 nitroglycerin 0.4 mg SL Q5-15M PRN #14 tab 11/14/17 ondansetron 4 mg PO TID-QID PRN #20 tab 05/21/18 oxycodone-acetaminophen [Percocet] 1 tab PO Q4-6H PRN #20 tab 05/21/18 amoxicillin-pot clavulanate 1 tab PO Q12H #20 tab 08/18/18 oxycodone-acetaminophen [Endocet] 1 tab PO Q4-6H PRN #20 tab MDD 9 08/18/18 Allergies Allergy/AdvReac Type Severity Reaction Status Date / Time No Known Drug Allergies Allergy Verified 11/14/17 13:01 Review of Systems <Brittany Ruff PA-C - Last Filed: 08/18/18 20:58> Review of Systems ROS Unobtainable: All systems reviewed & are unremarkable except as noted in HPI and below PFSH <Brittany Ruff PA-C - Last Filed: 08/18/18 20:58> Medical History (Updated 08/18/18 @ 19:04 by Brittany Ruff PA-C) CAD (coronary artery disease) (Chronic) DJD (degenerative joint disease), cervical (Chronic) Hypertension (Chronic) Kidney stones (Chronic) Tobacco abuse (Chronic) No significant past surgical history (Inactive) Surgical History (Updated 08/18/18 @ 16:58 by Brittany Ruff PA-C) H/O heart artery stent (Resolved) Social History Smoking Status: Current some day smoker alcohol intake: current substance use type: does not use Social History Smoking Status: Current some day smoker alcohol intake: current substance use type: does not use Comment: quit tob 08/11 Exam <Brittany Ruff PA-C - Last Filed: 08/18/18 20:58> Narrative Exam Narrative: GENERAL APPEARANCE: Patient mildly uncomfortable, in NAD HEENT: PERRL, EOMI, no scleral icterus, normal oropharynx NECK: Supple LUNGS: Clear to auscultation bilaterally. HEART: Rate and rhythm regular, normal S1 and S2, no S3 or S4. ABDOMEN: Soft, nondistended, bowel sounds present x 4 quadrants, no masses palpable, no hepatosplenomegaly. moderate suprapubic tenderness without guarding or rebound, mild right CVAT, none on the left EXTREMITIES: No edema, no calf tenderness DERMATOLOGIC: No jaundice or exanthem NEUROLOGIC: Alert and oriented with normal speech and coordination Initial Vital Signs Initial Vital Signs: Vital Signs Temperature 99.2 F 08/18/18 16:22 Pulse Rate 85 08/18/18 16:22 Respiratory Rate 18 08/18/18 16:22 Blood Pressure 153/81 H 08/18/18 16:22 Pulse Oximetry 97 08/18/18 16:22 <Erlin Mckay DO - Last Filed: 08/19/18 01:35> Initial Vital Signs Initial Vital Signs: Vital Signs Temperature 99.2 F 08/18/18 16:22 Pulse Rate 85 08/18/18 16:22 Respiratory Rate 18 08/18/18 16:22 Blood Pressure 153/81 H 08/18/18 16:22 Pulse Oximetry 97 08/18/18 16:22 Course <Brittany Ruff PA-C - Last Filed: 08/18/18 20:58> Additional Information: Patient is feeling markedly improved after IV lidocaine. This has helped him in the past. He does feel his pain is consistent with previous stones. He does have bacteriuria though joshua dysuria and urinary frequency resolved. He was recently on Bactrim. He is afebrile, not vomiting, does not feel like he needs to be hospitalized. I spoke with Dr. Whyte who is on- call for patient's urologist Dr. Couch and reviewed lab, CT and exam findings. He agrees reasonable to treat patient as an outpatient and have him follow up in their clinic. Patient will start Augmentin. Given prescription for Endocet and advised to continue avoiding NSAIDs given his recent cardiac stent and on Brilinta. He already has Zofran and Flomax at home. He agreed to return to ED if any acutely worsening symptoms in the interim. Orders Ordered: ED Orders 08/18/18 16:50 Urinalysis and Microscopic Stat Urine Culture Stat 08/18/18 16:59 CT kidney ureter bladder (KUB) Stat 08/18/18 17:02 Complete Blood Count AUTO DIFF Stat Comprehensive Metabolic Panel Stat Lactate (Lactic Acid) Stat Discontinued Medications Lidocaine HCl 5.5 ml/ Sodium (Chloride) 55.5 mls @ 333 mls/hr IV NOW ONE Stop: 08/18/18 16:42 Last Infusion: 08/18/18 17:51 Dose: 0 mls/hr Admin: 08/18/18 17:24 Dose: 333 mls/hr Sodium Chloride (Normal Saline 0.9%) 1,000 mls @ 500 mls/hr IV BOLUS ONE Stop: 08/18/18 18:45 Last Infusion: 08/18/18 19:27 Dose: 0 mls/hr Admin: 08/18/18 17:24 Dose: 500 mls/hr Vital Signs - 8 hr 08/18/18 17:51 08/18/18 19:00 08/18/18 19:27 Pulse Rate 74 72 73 Respiratory Rate 16 16 18 Blood Pressure 144/70 H Blood Pressure [Left Arm] 139/76 144/70 H Pulse Oximetry 98 98 99 <Erlin Mkcay, - Last Filed: 08/19/18 01:35> Orders Ordered: ED Orders 08/18/18 16:50 Urinalysis and Microscopic Stat Urine Culture Stat 08/18/18 16:59 CT kidney ureter bladder (KUB) Stat 08/18/18 17:02 Complete Blood Count AUTO DIFF Stat Comprehensive Metabolic Panel Stat Lactate (Lactic Acid) Stat Discontinued Medications Lidocaine HCl 5.5 ml/ Sodium (Chloride) 55.5 mls @ 333 mls/hr IV NOW ONE Stop: 08/18/18 16:42 Last Infusion: 08/18/18 17:51 Dose: 0 mls/hr Admin: 04/26/19 17:24 Dose: 333 mls/hr Sodium Chloride (Normal Saline 0.9%) 1,000 mls @ 500 mls/hr IV BOLUS ONE Stop: 08/18/18 18:45 Last Infusion: 08/18/18 19:27 Dose: 0 mls/hr Admin: 08/18/18 17:24 Dose: 500 mls/hr Vital Signs - 8 hr 08/18/18 17:51 08/18/18 19:00 08/18/18 19:27 Pulse Rate 74 72 73 Respiratory Rate 16 16 18 Blood Pressure 144/70 H Blood Pressure [Left Arm] 139/76 144/70 H Pulse Oximetry 98 98 99 MDM - Male Genitourinary <Brittany Ruff PA-C - Last Filed: 08/18/18 20:58> Lab Data Attestation: I reviewed the patient's lab results. Result diagrams: 08/18/18 17:02 08/18/18 17:02 Lab Results 08/18/18 08/18/18 08/18/18 Range/Units 16:50 17:02 17:02 WBC 8.8 (4.5-11.0) X10^3/uL RBC 4.21 L (4.5-5.9) X10^6/uL Hgb 14.0 (13.5-17.5) g/dL Hct 40.7 L (41-53) % MCV 96.7 (80-100) fL MCH 33.3 (26-34) PG MCHC 34.4 (30-36) % RDW 12.5 (11.6-14.8) % Plt Count 382 (150-400) X10^3/uL Neut % (Auto) 67.4 (50-75) % Lymph % (Auto) 14.8 L (25-40) % [place] % (Auto) 11.1 (3-14) % Eos % (Auto) 6.0 H (2-4) % Baso % (Auto) 0.7 (0-2) % Neut # (Auto) 5900 (0380-6646) /uL Lymph # (Auto) 1300 (7893-0125) /uL [place] # (Auto) 1000 H (0-900) /uL Eos # (Auto) 500 H (0-450) /uL Baso # (Auto) 100 (0-100) /uL Sodium 142 (137-145) mmol/L Potassium 4.4 (3.4-5.1) mmol/L Chloride 109 H (98-107) mmol/L Carbon Dioxide 21 L (22-32) mmol/L BUN 25 H (9-20) mg/dL Creatinine 1.20 (0.66-1.25) mg/dL Estimated GFR > 60.0 (>60) mL/min BUN/Creatinine Ratio 20.8 (6-22) Glucose 143 H (70-100) mg/dL Lactate (0.7-2.1) mmol/L Calcium 9.5 (8.4-10.2) mg/dL Total Bilirubin 0.4 (0.2-1.3) mg/dL AST 28 (17-59) IU/L ALT 32 (21-72) IU/L Alkaline Phosphatase 106 (38-126) U/L Total Protein 7.9 (6.3-8.2) g/dL Albumin 4.4 (3.5-5.0) g/dL Globulin 3.5 (1.7-4.1) g/dL Albumin/Globulin Ratio 1.3 (1.0-2.8) Urine Color Lead Urine Appearance Slightly cloudy Urine pH TNP Ur Specific [place] TNP Urine Protein TNP Urine Glucose (UA) TNP Urine Ketones TNP Urine Occult Blood TNP Urine Nitrate TNP Urine Bilirubin TNP Urine Urobilinogen TNP Ur Leukocyte Esterase TNP Urine RBC 30-100/hpf H (0-5/HPF) Urine WBC 5-10/hpf H (0-5/HPF) Urine Bacteria Moderate (10-30) H (None) Urine Mucus 1+ H (Negative) Ur Culture Indicated? Specimen cultured Micro UA Comment 08/18/18 Range/Units 17:02 WBC (4.5-11.0) X10^3/uL RBC (4.5-5.9) X10^6/uL Hgb (13.5-17.5) g/dL Hct (41-53) % MCV (80-100) fL MCH (26-34) PG MCHC (30-36) % RDW (11.6-14.8) % Plt Count (150-400) X10^3/uL Neut % (Auto) (50-75) % Lymph % (Auto) (25-40) % [place] % (Auto) (3-14) % Eos % (Auto) (2-4) % Baso % (Auto) (0-2) % Neut # (Auto) (7281-1882) /uL Lymph # (Auto) (6480-7592) /uL [place] # (Auto) (0-900) /uL Eos # (Auto) (0-450) /uL Baso # (Auto) (0-100) /uL Sodium (137-145) mmol/L Potassium (3.4-5.1) mmol/L Chloride (98-107) mmol/L Carbon Dioxide (22-32) mmol/L BUN (9-20) mg/dL Creatinine (0.66-1.25) mg/dL Estimated GFR (>60) mL/min BUN/Creatinine Ratio (6-22) Glucose (70-100) mg/dL Lactate 1.2 (0.7-2.1) mmol/L Calcium (8.4-10.2) mg/dL Total Bilirubin (0.2-1.3) mg/dL AST (17-59) IU/L ALT (21-72) IU/L Alkaline Phosphatase (38-126) U/L Total Protein (6.3-8.2) g/dL Albumin (3.5-5.0) g/dL Globulin (1.7-4.1) g/dL Albumin/Globulin Ratio (1.0-2.8) Urine Color Urine Appearance Urine pH Ur Specific [place] Urine Protein Urine Glucose (UA) Urine Ketones Urine Occult Blood Urine Nitrate Urine Bilirubin Urine Urobilinogen Ur Leukocyte Esterase Urine RBC (0-5/HPF) Urine WBC (0-5/HPF) Urine Bacteria (None) Urine Mucus (Negative) Ur Culture Indicated? Micro UA Comment Imaging Data KUB CT: Radiologist's impression: [address] [address] [address] Scan Report Signed Patient: Joaquín Call CMR#: [id number] : 1960Acct:[id number] Age/Sex: 58 / MDate of Service: 08/18/18 Loc: ED Accession Number: [id number] Procedure: CT kidney ureter bladder (KUB) Ordering Provider: Fishfader,Brittany P.A-C PROCEDURE: CT KIDNEY URETER BLADDER (KUB) INDICATIONS: suprapubic and flank pain, h/o stones TECHNIQUE: Noncontrast 5 mm thick sections acquired from the diaphragms to the symphysis. 5 mm thick coronal and sagittal reformats were then performed. For radiation dose reduction, the following was used: automated exposure control, adjustment of mA and/or kV according to patient size. COMPARISON: [facility], CT, CT KIDNEY URETER BLADDER (KUB), 05/21/2018, 18:33. FINDINGS: Image quality: Excellent. Lung bases: Lung bases are clear. Heart size is normal. Urinary system: There is an obstructing 6 mm stone seen within the right proximal ureter. Numerous nonobstructing kidney stones are seen. The largest solitary stone on the right measures 5 mm and the largest solitary stone in the left measures 5-6 mm. Both kidneys are normal in size. Bladder wall thickness is normal; no calcified bladder stones. Other solid organs: Liver is normal in size. Gallbladder wall is not thickened. Pancreas is normal in contours. Spleen is normal in size. A low-density left adrenal adenoma is seen that measures 2 Hounsfield units and 2 cm. No right adrenal nodules. Peritoneum and bowel: Unenhanced bowel loops demonstrate normal wall thickness and caliber. No free fluid or air. Diverticulosis is seen, without findings of active diverticulitis. Incidental note is made of a normal-appearing appendix. Nodes and vessels: No retroperitoneal or mesenteric adenopathy by size criteria. Aorta and inferior vena cava are normal in caliber. Atherosclerotic calcification is noted. Abdominal wall: A mild periumbilical hernia is seen, containing fat. Pelvis: No free pelvic fluid. No inguinal hernias or adenopathy. The prostate gland is prominent measuring 6.1 cm transversely. Bones: No suspicious bony lesions. No vertebral body compression fractures. Transitional lumbar anatomy is seen, with a transitional L5 segment, with prominent sacralization on the left. IMPRESSION: There is a 6 mm stone seen within the proximal right ureter. Numerous nonobstructing bilateral kidney stones are seen. Incidental note is made of: Benign, lipid rich left adrenal adenoma Fat containing periumbilical hernia Diverticulosis is seen, without findings of active diverticulitis. 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 Dictated by: Eddie Arnett M.D. on 08/18/2018 at 16:25 Approved by: Eddie Arnett M.D. on 08/18/2018 at 16:29 <Erlin Mckay DO - Last Filed: 08/19/18 01:35> Lab Data Lab Results 08/18/18 08/18/18 08/18/18 Range/Units 16:50 17:02 17:02 WBC 8.8 (4.5-11.0) X10^3/uL RBC 4.21 L (4.5-5.9) X10^6/uL Hgb 14.0 (13.5-17.5) g/dL Hct 40.7 L (41-53) % MCV 96.7 (80-100) fL MCH 33.3 (26-34) PG MCHC 34.4 (30-36) % RDW 12.5 (11.6-14.8) % Plt Count 382 (150-400) X10^3/uL Neut % (Auto) 67.4 (50-75) % Lymph % (Auto) 14.8 L (25-40) % [place] % (Auto) 11.1 (3-14) % Eos % (Auto) 6.0 H (2-4) % Baso % (Auto) 0.7 (0-2) % Neut # (Auto) 5900 (8373-4440) /uL Lymph # (Auto) 1300 (2810-2489) /uL [place] # (Auto) 1000 H (0-900) /uL Eos # (Auto) 500 H (0-450) /uL Baso # (Auto) 100 (0-100) /uL Sodium 142 (137-145) mmol/L Potassium 4.4 (3.4-5.1) mmol/L Chloride 109 H (98-107) mmol/L Carbon Dioxide 21 L (22-32) mmol/L BUN 25 H (9-20) mg/dL Creatinine 1.20 (0.66-1.25) mg/dL Estimated GFR > 60.0 (>60) mL/min BUN/Creatinine Ratio 20.8 (6-22) Glucose 143 H (70-100) mg/dL Lactate (0.7-2.1) mmol/L Calcium 9.5 (8.4-10.2) mg/dL Total Bilirubin 0.4 (0.2-1.3) mg/dL AST 28 (17-59) IU/L ALT 32 (21-72) IU/L Alkaline Phosphatase 106 (38-126) U/L Total Protein 7.9 (6.3-8.2) g/dL Albumin 4.4 (3.5-5.0) g/dL Globulin 3.5 (1.7-4.1) g/dL Albumin/Globulin Ratio 1.3 (1.0-2.8) Urine Color Lead Urine Appearance Slightly cloudy Urine pH TNP Ur Specific [place] TNP Urine Protein TNP Urine Glucose (UA) TNP Urine Ketones TNP Urine Occult Blood TNP Urine Nitrate TNP Urine Bilirubin TNP Urine Urobilinogen TNP Ur Leukocyte Esterase TNP Urine RBC 30-100/hpf H (0-5/HPF) Urine WBC 5-10/hpf H (0-5/HPF) Urine Bacteria Moderate (10-30) H (None) Urine Mucus 1+ H (Negative) Ur Culture Indicated? Specimen cultured Micro UA Comment 08/18/18 Range/Units 17:02 WBC (4.5-11.0) X10^3/uL RBC (4.5-5.9) X10^6/uL Hgb (13.5-17.5) g/dL Hct (41-53) % MCV (80-100) fL MCH (26-34) PG MCHC (30-36) % RDW (11.6-14.8) % Plt Count (150-400) X10^3/uL Neut % (Auto) (50-75) % Lymph % (Auto) (25-40) % [place] % (Auto) (3-14) % Eos % (Auto) (2-4) % Baso % (Auto) (0-2) % Neut # (Auto) (0760-1285) /uL Lymph # (Auto) (5990-3790) /uL [place] # (Auto) (0-900) /uL Eos # (Auto) (0-450) /uL Baso # (Auto) (0-100) /uL Sodium (137-145) mmol/L Potassium (3.4-5.1) mmol/L Chloride (98-107) mmol/L Carbon Dioxide (22-32) mmol/L BUN (9-20) mg/dL Creatinine (0.66-1.25) mg/dL Estimated GFR (>60) mL/min BUN/Creatinine Ratio (6-22) Glucose (70-100) mg/dL Lactate 1.2 (0.7-2.1) mmol/L Calcium (8.4-10.2) mg/dL Total Bilirubin (0.2-1.3) mg/dL AST (17-59) IU/L ALT (21-72) IU/L Alkaline Phosphatase (38-126) U/L Total Protein (6.3-8.2) g/dL Albumin (3.5-5.0) g/dL Globulin (1.7-4.1) g/dL Albumin/Globulin Ratio (1.0-2.8) Urine Color Urine Appearance Urine pH Ur Specific [place] Urine Protein Urine Glucose (UA) Urine Ketones Urine Occult Blood Urine Nitrate Urine Bilirubin Urine Urobilinogen Ur Leukocyte Esterase Urine RBC (0-5/HPF) Urine WBC (0-5/HPF) Urine Bacteria (None) Urine Mucus (Negative) Ur Culture Indicated? Micro UA Comment Discharge Plan Departure Patient Disposition: Home Clinical Impression: Kidney stone on left side, Kidney stone on right side UTI (urinary tract infection) Qualifiers: Urinary tract infection type: site unspecified Hematuria presence: with hematuria Qualified Code(s): N39.0 - Urinary tract infection, site not specified Discharge Date/Time: 08/18/18 19:27 Interventions: ED Discharge Assessment Last Done: 08/18/18 19:27 Instructions: DI for Kidney Infection, DI for Kidney Stones Activity Restrictions/Additional Instructions: Please diamond picker the antibiotic amoxicillin/clavulanic acid that I have sent to [facility] for you. Take 1 every 12 hours. Take your Zofran as needed. Take your Flomax once daily. Take the oxycodone/acetaminophen for pain as needed but do not drive as it can make you sleepy. Strain your urine. You should return to the ED as we talked about if you have acutely worsening symptoms, or inability to urinate again, or new symptoms such as fever or vomiting. please call Dr. Couch's office 1st thing on Tuesday morning and let them know that you were in the emergency room today with an infection and obstructing kidney stone and that Dr. Whyte was consulted and advised you to be seen there for follow up on Tuesday Thank you for your service! Prescriptions: New oxycodone-acetaminophen [Endocet] 5-325 mg tablet 1 tab PO Q4-6H MDD 9 PRN (Reason: kidney stones) Qty: 20 RF: 0 amoxicillin-pot clavulanate 875-125 mg tablet 1 tab PO Q12H Qty: 20 RF: 0 No Action docusate sodium 250 MG capsule 250 mg PO QDAY Qty: 0 RF: 0 indomethacin 75 MG capsule, extended release 75 mg PO BID Qty: 0 RF: 0 lisinopril 20 mg Tablet 20 mg PO DAILY RF: 0 tamsulosin 0.4 mg capsule,extended release 24hr 0.4 mg PO DAILY RF: 0 nitroglycerin 0.4 mg tablet, sublingual 0.4 mg SL Q5-15M PRN (Reason: chest pain) Qty: 14 RF: 0 aspirin 81 mg tablet,chewable 81 mg PO DAILY Qty: 10 RF: 0 oxycodone-acetaminophen [Percocet] 5-325 mg tablet 1 tab PO Q4-6H PRN (Reason: pain) Qty: 20 RF: 0 ondansetron 4 mg tablet,disintegrating 4 mg PO TID-QID PRN (Reason: nausea and vomiting) Qty: 20 RF: 0 Brilinta 90 mg tablet RF: 0 Referrals: Daniella Sanchez MD [Primary Care Provider] - <Erlin Mckay DO - Last Filed: 08/19/18 01:35> [facility] ED Attending Zeinab Attestation: I was available for consultation during patient's emergency department encounter
[2018-08-18 17:21] LABS: Add Manual Diff / Slide Review NO; Basophils Absolute Auto 100 /uL (0-100); Basophils Percent Auto 0.7 % (0-2); Eosinophils Absolute Auto 500 /uL (0-450); Hematocrit 40.7 % (41-53); Lymphocytes Absolute Auto 1300 /uL (1100-4500); Lymphocytes Percent Auto 14.8 % (25-40); Mean Corpuscular HGB Conc 34.4 % (30-36); Mean Corpuscular Hemoglobin 33.3 PG (26-34); Mean Corpuscular Volume 96.7 fL (80-100); Monocytes Absolute Auto 1000 /uL (0-900); Monocytes Percent Auto 11.1 % (3-14); Neutrophils Absolute Auto 5900 /uL (1500-7000); Neutrophils Percent Auto 67.4 % (50-75); Platelet Count 382 X10^3/uL (150-400); Red Blood Cell Count 4.21 X10^6/uL (4.5-5.9); Red Cell Distribution Width 12.5 % (11.6-14.8); White Blood Cell Count 8.8 X10^3/uL (4.5-11.0)
[2018-08-18 17:24] LABS: Color Urine UA ORANGE
[2018-08-18] MEDS: SODIUM CHLORIDE 0.9% IV (17:24)
[2018-08-18] MEDS: SODIUM CHLORIDE 0.9% 1,000 ML 500 ML IV (17:24)
[2018-08-18] MEDS: LIDOCAINE 2% IV (17:24)
[2018-08-18 17:25] LABS: Appearance Urine UA Slightly Cloudy
[2018-08-18 17:28] LABS: Bacteria Urine Moderate (10-30); Mucus Urine 1+ (Negative); RBC Urine 30-100/HPF (0-5/HPF); WBC Urine 5-10/HPF (0-5/HPF)
[2018-08-18 17:30] LABS: Culture Indicated Urine Specimen Cultured
[2018-08-18 17:36] LABS: Alanine Aminotransferase 32 IU/L (21-72); Albumin 4.4 g/dL (3.5-5.0); Albumin Globulin Ratio 1.3 (1.0-2.8); Alkaline Phosphatase 106 U/L (38-126); Aspartate Aminotransferase 28 IU/L (17-59); BUN Creatinine Ratio 20.8 (6-22); Bilirubin Total 0.4 mg/dL (0.2-1.3); Blood Urea Nitrogen 25 mg/dL (9-20); Calcium 9.5 mg/dL (8.4-10.2); Carbon Dioxide 21 mmol/L (22-32); Chloride 109 mmol/L (98-107); Estimated Glomerular Filt Rate > 60.0 mL/min (>60); Globulin 3.5 g/dL (1.7-4.1); Glucose 143 mg/dL (70-100); HEMOLYSIS 17 (0-50); Potassium 4.4 mmol/L (3.4-5.1); Sodium 142 mmol/L (137-145); Total Protein 7.9 g/dL (6.3-8.2)
[2018-08-18 17:41] LABS: Lactate (Lactic Acid) 1.2 mmol/L (0.7-2.1)
[2018-08-18 17:51] VITALS: BP 139/76; PULSE 74; RESP 16; O2SAT 98
[2018-08-18 19:00] VITALS: BP 144/70; PULSE 72; RESP 16; O2SAT 98
[2018-08-18 19:27] VITALS: BP 144/70; PULSE 73; RESP 18; O2SAT 99
== END 2018-08-18 19:27 | disposition home or self-care (01) ==
PROVIDERS: Emergency Provider Internal Medicine; PCP Internal Medicine
DX: N39.0 Urinary tract infection, site not specified (principal)
CPT/HCPCS: 36591; 74176; 80053; 81001; 83605; 85025; 87086; 96361; 96365; 99283; 99284

== ENCOUNTER → 2018-09-24 10:09 | Outpatient (CLI) | payer OTHER, SELFPAY ==
--- NOTE | 2018-09-24 | DI.RAD.S_ITS ---
PROCEDURE: XR KUB INDICATIONS: CALCULUS OF KIDNEY TECHNIQUE: One view of the abdomen acquired. COMPARISON: [facility], CT, CT KIDNEY URETER BLADDER (KUB), 08/18/2018, 17:11. FINDINGS: Surgical changes and devices: None. Bowel: Bowel gas pattern is normal. No air-filled distended small bowel loops are seen. Soft tissues: The previously seen proximal right ureteral calculus appears to have moved distally in the interim and is now positioned at approximately the L4 level. Additional bilateral renal calculi are noted. Visualized solid organ contours appear normal in size. Bones: No suspicious bony lesions. Degenerative changes of the lumbosacral spine and bilateral hips are noted. IMPRESSION: 1. Probable mid right ureteral calculus. This may represent interval progression/descent of the previously seen proximal right ureteral calculus. 2. Bilateral nephrolithiasis. Dictated by: Brandt Koenig M.D. on 09/24/2018 at 9:33 Approved by: Brandt Koenig M.D. on 09/24/2018 at 9:35
== END ==
PROVIDERS: PCP Internal Medicine; Visit Provider Urology
DX: N20.2 Calculus of kidney with calculus of ureter (principal)
CPT/HCPCS: 74018

== ENCOUNTER 2018-10-10 12:09 | Emergency (ER) | payer OTHER, SELFPAY ==
[2018-10-10 12:15] VITALS: BP 145/63; PULSE 74; RESP 18; TEMP 37.1; O2SAT 100
--- NOTE | 2018-10-10 12:21 | DI.US.S_ITS ---
PROCEDURE: US RENAL COMPLETE INDICATIONS: SEVERE RIGHT FLANK PAIN, HISTORY OF STONES TECHNIQUE: Real-time scanning was performed of the kidneys and bladder, with image documentation. COMPARISON: [facility], CT, CT KIDNEY URETER BLADDER (KUB), 08/18/2018, 17:11. [facility], US, RENAL COMPLETE, 04/19/2017, 14:52. FINDINGS: Kidneys: Kidneys are normal in size. Right kidney measures 11.6 cm long; left kidney measures 11.1 cm long. Right renal cortical thickness is 1.3 cm; left renal cortical thickness is 1.1 cm. Renal cortical echotexture is normal. There is a dilated right ureter and hydronephrosis. A likely obstructing stone can be seen on the right mid ureter measuring 9 x 4 x 6 mm. Nonobstructing stones are seen on the right that measure up to 5 mm. Right renal cysts are also seen that measure up to 11 mm. The left kidney demonstrates a nodular contour. Numerous nonobstructing left-sided kidney stones are seen that measure up to 5 mm. Bladder: Pre-void bladder volume is 42 mL. Post-void residual is 17 mL. Pre-void images demonstrate no intraluminal masses or stones. On pre-void images, neither of the ureteral jets are noted with color Doppler interrogation. (Of note, ureteral jets may not be detectable in up to 25% of cases due to insufficient differences in specific gravity between ureteral and bladder urine). Miscellaneous: No free pelvic fluid. The prostate is inhomogeneous, with a measured volume 86 cc. IMPRESSION: Right-sided hydroureter and hydronephrosis. There is apparent visualization of a right mid ureteral stone that measures up to 9 mm. If clinically appropriate, a dedicated followup CT KUB could be considered for further evaluation. Bilateral nonobstructing kidney stones are seen. Mild postvoid residual of 17 cc. Dictated by: Eddie Arnett M.D. on 10/10/2018 at 12:21 Approved by: Eddie Arnett M.D. on 10/10/2018 at 12:24
--- NOTE | 2018-10-10 12:35 | ED_ITS ---
HPI - Male Genitourinary General Chief complaint: Urogenital-Male Stated complaint: KIDNEY STONE RIGHT SIDE Time Seen by Provider: 10/10/18 12:14 Source: patient Mode of arrival: ambulatory Limitations: no limitations History of Present Illness HPI Narrative: 58-year-old male smoker with history of kidney stones and a known right-sided proximal stone presents with severe right-sided flank pain. His pain is gradually worsening and not responding to the oxycodone he takes at home. He denies provocation or palliation and states it radiates into his groin. He denies fever or chills. He has had nausea but denies vomiting. Patient was set to have it surgically addressed recently but the anesthesiologist cancelled based on NSTEMI in July Complaint: other Onset (ago): day(s) Duration: constant Location: right flank Severity: severe Quality: aching and burning Relieving factors: none Exacerbating factors: none Reports nausea/vomiting Related Data Home Medications Medication Instructions Recorded Confirmed indomethacin 75 mg PO BID #0 08/03/17 11/14/17 lisinopril 20 mg PO DAILY 11/14/17 10/10/18 ticagrelor [Brilinta] 90 mg PO BID 08/18/18 10/10/18 atorvastatin 80 mg PO DAILY 10/10/18 10/10/18 docusate calcium [Stool Softener] 240 mg PO DAILY 10/10/18 10/10/18 metoprolol succinate 25 mg PO BID 10/10/18 10/10/18 ondansetron 8 mg PO TID PRN 10/10/18 10/10/18 Previous Rx's Medication Instructions Recorded aspirin 81 mg PO DAILY #10 tab 11/14/17 nitroglycerin 0.4 mg SL Q5-15M PRN #14 tab 11/14/17 oxycodone-acetaminophen [Percocet] 1 tab PO Q4-6H PRN #20 tab 05/21/18 cephalexin [Keflex] 500 mg PO QID 10 Days #40 cap 10/10/18 oxycodone-acetaminophen 1 tab PO Q4-6H PRN #20 tab 10/10/18 tamsulosin 0.4 mg PO DAILY #20 cap 10/10/18 Allergies Allergy/AdvReac Type Severity Reaction Status Date / Time No Known Drug Allergies Allergy Verified 11/14/17 13:01 Review of Systems Constitutional Denies chills, Denies fever(s), Denies lethargy and Denies weakness Eyes Denies change in vision, Denies eye discharge, Denies irritation and Denies loss of vision ENT Ears, Nose, Mouth, and Throat: Denies change in voice, Denies neck pain and Giovany es sore throat Cardiovascular Denies chest pain, Denies irregular heart rhythm, Denies lightheadedness, Denies palpitations, Denies dyspnea, Denies dyspnea on exertion and Denies orthopnea Respiratory Denies cough, Denies dyspnea, Denies dyspnea on exertion and Denies wheezing Gastrointestinal Gastrointestinal: Denies abdominal pain, Denies change in bowel habits, Denies diarrhea, Denies nausea and Denies vomiting Genitourinary Denies hematuria, Reports flank pain, Denies urinary incontinence and Denies urinary urgency Musculoskeletal Denies neck pain Integumentary/Breasts Denies pruritus, Denies erythema, Denies rash and Denies wounds Neurologic Denies confusion, Denies loss of vision and Denies weakness Psychiatric Denies anxiety, Denies confusion, Denies depression, Denies homicidal ideation and Denies suicidal ideation Endocrine Denies palpitations Hematologic/Lymphatic Denies easy bruising Allergic/Immunologic Denies wheezing PFSH Medical History CAD (coronary artery disease) (Chronic) DJD (degenerative joint disease), cervical (Chronic) Hypertension (Chronic) Kidney stones (Chronic) Tobacco abuse (Chronic) No significant past surgical history (Inactive) Surgical History H/O heart artery stent (Resolved) Social History Smoking Status: Current some day smoker alcohol intake: current substance use type: does not use Social History Smoking Status: Current some day smoker alcohol intake: current substance use type: does not use Exam Narrative Exam Narrative: GENERAL: 58-year-old male obviously uncomfortable, appears older than stated age, rubbing his right flank, rocking back and forth HEAD: Atraumatic. Normocephalic. No temporal or scalp tenderness. EYES: Pupils equal round and reactive. Extraocular motions intact. No scleral icterus. No injection or drainage. ENT: Nose without bleeding, purulent drainage or septal hematoma. Throat without erythema, tonsillar hypertrophy or exudate. Uvula midline. Airway patent. NECK: Trachea midline. No JVD or lymphadenopathy. Supple, nontender, no meningeal signs. CARDIOVASCULAR: Regular rate and rhythm without murmurs, gallops, or rubs. RESPIRATORY: Clear to auscultation. Breath sounds equal bilaterally. No wheezes, rales, or rhonchi. GASTROINTESTINAL: Abdomen soft, non-tender, nondistended. No hepato- splenomegaly, or palpable masses. No guarding. EXTREMITIES: No clubbing, cyanosis, or edema. No joint tenderness, effusion, or edema noted. BACK: Reproducible right flank pain to palpation NEURO: AOx3. SKIN: No rash or erythema. Initial Vital Signs Initial Vital Signs: Vital Signs Temperature 98.8 F 10/10/18 12:15 Pulse Rate 74 10/10/18 12:15 Respiratory Rate 18 10/10/18 12:15 Blood Pressure 145/63 H 10/10/18 12:15 Pulse Oximetry 100 10/10/18 12:15 Course Orders Ordered: ED Orders 10/10/18 12:21 US renal complete Stat 10/10/18 13:05 Basic Metabolic Panel Stat Complete Blood Count AUTO DIFF Stat Urinalysis and Microscopic Stat Urine Culture Stat Hydromorphone HCl (Dilaudid) 0.5 mg IV Q30MIN PRN PRN Reason: Pain, Severe (7-10) Last Admin: 10/10/18 15:11 Dose: 0.5 mg Admin: 10/10/18 14:14 Dose: 0.5 mg Discontinued Medications Lidocaine HCl 5.4 ml/ Sodium (Chloride) 55.4 mls @ 332.4 mls/hr IV NOW ONE Stop: 10/10/18 13:54 Last Infusion: 10/10/18 14:40 Dose: 0 mls/hr Admin: 10/10/18 14:15 Dose: 332.4 mls/hr Ketorolac Tromethamine (Toradol) 15 mg IV NOW ONE Stop: 10/10/18 12:22 Last Admin: 10/10/18 13:04 Dose: 15 mg Reevaluation(s) Reevaluation #1: patient doing much better on the above therapies. Call to Urology for completeness sake (Dr. Whyte) whom states patient can be discharged with pain control, flomax, etc. Call office for follow up. Vital Signs - 8 hr 10/10/18 12:15 10/10/18 13:07 10/10/18 14:09 Temperature 98.8 F 98.8 F Pulse Rate 74 74 72 Respiratory Rate 18 18 Blood Pressure 145/63 H 145/63 H Blood Pressure [Right Arm] 120/71 Pulse Oximetry 100 100 98 MDM - Male Genitourinary Lab Data Result diagrams: 10/10/18 13:05 10/10/18 13:05 Lab Results 10/10/18 10/10/18 10/10/18 Range/Units 13:05 13:05 13:05 WBC 9.2 (4.5-11.0) X10^3/uL RBC 4.39 L (4.5-5.9) X10^6/uL Hgb 14.4 (13.5-17.5) g/dL Hct 42.9 (41-53) % MCV 97.8 (80-100) fL MCH 32.9 (26-34) PG MCHC 33.6 (30-36) % RDW 13.3 (11.6-14.8) % Plt Count 256 (150-400) X10^3/uL Neut % (Auto) 70.9 (50-75) % Lymph % (Auto) 14.0 L (25-40) % [place] % (Auto) 12.5 (3-14) % Eos % (Auto) 2.1 (2-4) % Baso % (Auto) 0.5 (0-2) % Neut # (Auto) 6500 (3408-8797) /uL Lymph # (Auto) 1300 (6000-1957) /uL [place] # (Auto) 1200 H (0-900) /uL Eos # (Auto) 200 (0-450) /uL Baso # (Auto) 0 (0-100) /uL Sodium 141 (137-145) mmol/L Potassium 4.4 (3.4-5.1) mmol/L Chloride 107 (98-107) mmol/L Carbon Dioxide 26 (22-32) mmol/L BUN 18 (9-20) mg/dL Creatinine 1.20 (0.66-1.25) mg/dL Estimated GFR > 60.0 (>60) mL/min BUN/Creatinine Ratio 15.0 (6-22) Glucose 116 H (70-100) mg/dL Calcium 9.5 (8.4-10.2) mg/dL Urine Color Yellow Urine Appearance Cloudy Urine pH 5.0 (4.5-8.0) Ur Specific [place] 1.025 (1.000-1.035) Urine Protein Trace H (Negative) Urine Glucose (UA) Negative (Negative) g/dL Urine Ketones Negative (NEGATIVE) Urine Occult Blood 3+ H (Negative) Urine Nitrate Negative (Negative) Urine Bilirubin Negative (NEGATIVE) Urine Urobilinogen 0.2 (0.2) E.U./dL Ur Leukocyte Esterase Trace H (NEGATIVE) Urine RBC >100/hpf (0-5/HPF) Urine WBC 1-5/hpf (0-5/HPF) Urine Bacteria Moderate (10-30) H (None) Urine Mucus 2+ H (Negative) Ur Culture Indicated? Specimen cultured Imaging Data US - abdomen: Radiologist's impression: [address] [address] Ultrasound Report Signed Patient: Joaquín Call CMR#: [id number] : 1960Acct:[id number] Age/Sex: 58 / MDate of Service: 10/10/18 Loc: ED Accession Number: [id number] Procedure: US renal complete Ordering Provider: Juan Bonner D.O. PROCEDURE: US RENAL COMPLETE INDICATIONS: SEVERE RIGHT FLANK PAIN, HISTORY OF STONES TECHNIQUE: Real-time scanning was performed of the kidneys and bladder, with image documentation. COMPARISON: [facility], CT, CT KIDNEY URETER BLADDER (KUB), 08/18/2018, 17:11. [facility], US, RENAL COMPLETE, 04/19/2017, 14:52. FINDINGS: Kidneys: Kidneys are normal in size. Right kidney measures 11.6 cm long; left kidney measures 11.1 cm long. Right renal cortical thickness is 1.3 cm; left renal cortical thickness is 1.1 cm. Renal cortical echotexture is normal. There is a dilated right ureter and hydronephrosis. A likely obstructing stone can be seen on the right mid ureter measuring 9 x 4 x 6 mm. Nonobstructing stones are seen on the right that measure up to 5 mm. Right renal cysts are also seen that measure up to 11 mm. The left kidney demonstrates a nodular contour. Numerous nonobstructing left- sided kidney stones are seen that measure up to 5 mm. Bladder: Pre-void bladder volume is 42 mL. Post-void residual is 17 mL. Pre- void images demonstrate no intraluminal masses or stones. On pre-void images, neither of the ureteral jets are noted with color Doppler interrogation. (Of note, ureteral jets may not be detectable in up to 25% of cases due to insufficient differences in specific gravity between ureteral and bladder urine). Miscellaneous: No free pelvic fluid. The prostate is inhomogeneous, with a measured volume 86 cc. IMPRESSION: Right-sided hydroureter and hydronephrosis. There is apparent visualization of a right mid ureteral stone that measures up to 9 mm. If clinically appropriate, a dedicated followup CT KUB could be considered for further evaluation. Bilateral nonobstructing kidney stones are seen. Mild postvoid residual of 17 cc. Dictated by: Eddie Arnett M.D. on 10/10/2018 at 12:21 Approved by: Eddie Arnett M.D. on 10/10/2018 at 12:24 Discharge Plan Departure Patient Disposition: Home Clinical Impression: Ureterolithiasis Instructions: DI for Kidney Stones Activity Restrictions/Additional Instructions: *You have been diagnosed with [ R sided kidney stone ] *What to do: *Take medications as directed *Follow up with your Urologist, call for an appointment. Let them know you were seen in the Emergency Department and that we ask that you be seen in follow up *Return to ER if you should have any new, worsening or concerning symptoms Prescriptions: New oxycodone-acetaminophen 5-325 mg tablet 1 tab PO Q4-6H PRN (Reason: pain) Qty: 20 RF: 0 tamsulosin 0.4 mg capsule 0.4 mg PO DAILY Qty: 20 RF: 0 cephalexin [Keflex] 500 mg capsule 500 mg PO QID 10 Days Qty: 40 RF: 0 No Action indomethacin 75 MG capsule, extended release 75 mg PO BID Qty: 0 RF: 0 lisinopril 20 mg Tablet 20 mg PO DAILY RF: 0 nitroglycerin 0.4 mg tablet, sublingual 0.4 mg SL Q5-15M PRN (Reason: chest pain) Qty: 14 RF: 0 aspirin 81 mg tablet,chewable 81 mg PO DAILY Qty: 10 RF: 0 atorvastatin 80 mg tablet 80 mg PO DAILY RF: 0 docusate calcium [Stool Softener] 240 mg capsule 240 mg PO DAILY RF: 0 ondansetron 8 mg tablet,disintegrating 8 mg PO TID PRN (Reason: Nausea) RF: 0 metoprolol succinate 25 mg tablet extended release 24 hr 25 mg PO BID RF: 0 oxycodone-acetaminophen [Percocet] 5-325 mg tablet 1 tab PO Q4-6H PRN (Reason: pain) Qty: 20 RF: 0 Brilinta 90 mg tablet 90 mg PO BID RF: 0 Referrals: Daniella Sanchez MD [Primary Care Provider] -
[2018-10-10] MEDS: KETOROLAC 60 MG/2 ML VIAL 15 MG IV (13:04)
[2018-10-10 13:07] VITALS: BP 145/63; PULSE 74; RESP 18; TEMP 37.1; O2SAT 100
[2018-10-10 13:17] LABS: Add Manual Diff / Slide Review NO; Basophils Absolute Auto 0 /uL (0-100); Basophils Percent Auto 0.5 % (0-2); Eosinophils Absolute Auto 200 /uL (0-450); Eosinophils Percent Auto 2.1 % (2-4); Hematocrit 42.9 % (41-53); Hemoglobin 14.4 g/dL (13.5-17.5); Lymphocytes Absolute Auto 1300 /uL (1100-4500); Mean Corpuscular HGB Conc 33.6 % (30-36); Mean Corpuscular Hemoglobin 32.9 PG (26-34); Mean Corpuscular Volume 97.8 fL (80-100); Monocytes Absolute Auto 1200 /uL (0-900); Monocytes Percent Auto 12.5 % (3-14); Neutrophils Absolute Auto 6500 /uL (1500-7000); Neutrophils Percent Auto 70.9 % (50-75); Platelet Count 256 X10^3/uL (150-400); Red Blood Cell Count 4.39 X10^6/uL (4.5-5.9); Red Cell Distribution Width 13.3 % (11.6-14.8); White Blood Cell Count 9.2 X10^3/uL (4.5-11.0)
[2018-10-10 13:19] LABS: Appearance Urine UA CLOUDY; Bilirubin Urine UA NEGATIVE (NEGATIVE); Color Urine UA YELLOW; Glucose Urine UA NEGATIVE (Negative); Ketones Urine UA NEGATIVE (NEGATIVE); Leukocyte Esterase Urine UA TRACE (NEGATIVE); Nitrite Urine UA NEGATIVE (Negative); Occult Blood Urine UA 3+ (Negative); Protein Urine UA TRACE (Negative); Specific Gravity Urine UA 1.025 (1.000-1.035); Urobilinogen Urine UA 0.2 E.U./dL (0.2)
[2018-10-10 13:40] LABS: RBC Urine >100/HPF (0-5/HPF); WBC Urine 1-5/HPF (0-5/HPF)
[2018-10-10 13:41] LABS: Bacteria Urine Moderate (10-30); Blood Urea Nitrogen 18 mg/dL (9-20); Calcium 9.5 mg/dL (8.4-10.2); Carbon Dioxide 26 mmol/L (22-32); Chloride 107 mmol/L (98-107); Culture Indicated Urine Specimen Cultured; Estimated Glomerular Filt Rate > 60.0 mL/min (>60); Glucose 116 mg/dL (70-100); HEMOLYSIS < 15 (0-50); Mucus Urine 2+ (Negative); Potassium 4.4 mmol/L (3.4-5.1); Sodium 141 mmol/L (137-145)
[2018-10-10 14:09] VITALS: BP 120/71; PULSE 72; O2SAT 98
[2018-10-10] MEDS: HYDROMORPHONE 0.5 MG INJ IV ×2 (14:14→15:11)
[2018-10-10] MEDS: LIDOCAINE 2% 5.4 ML in SODIUM CHLORIDE 0.9% 50 ML 332.4 ML IV (14:15)
[2018-10-10 15:00] VITALS: BP 129/75; PULSE 66; RESP 16; O2SAT 100
[2018-10-10 15:30] VITALS: BP 111/65; PULSE 72; RESP 16; O2SAT 100
--- NOTE | 2018-10-10 15:33 | PC.NURSE ---
Patient has ongoing chronic multiple kidney stones
== END 2018-10-10 15:31 | disposition home or self-care (01) ==
PROVIDERS: Emergency Provider Emergency Medicine; PCP Internal Medicine
DX: N20.1 Calculus of ureter (principal)
CPT/HCPCS: 36591; 76770; 80048; 81001; 85025; 87086; 96365; 96375; 96376; 99283; 99284; J1170; J1885

== ENCOUNTER → 2018-10-22 11:37 | Outpatient (CLI) | payer OTHER, SELFPAY ==
--- NOTE | 2018-10-22 | DI.RAD.S_ITS ---
PROCEDURE: XR ABDOMEN 1V INDICATIONS: CALCULOUS OF KIDNEY TECHNIQUE: One view of the abdomen acquired. COMPARISON: [facility], CT, CT KIDNEY URETER BLADDER (KUB), 08/18/2018, 17:11. FINDINGS: Surgical changes and devices: None. Bowel: Bowel gas pattern is normal. No air-filled distended small bowel loops are evident. Air and stool are seen overlying the colon. Soft tissues: There subtle calcifications overlying the bilateral kidneys. Visualized solid organ contours appear normal in size. Bones: No suspicious bony lesions. The left L5 transverse process is noted to be partially fused with the adjacent sacrum. IMPRESSION: 1. Bilateral nephrolithiasis. If there is clinical concern for obstructive uropathy, please consider noncontrast CT. 2. No bowel obstruction. Dictated by: Brandt Koenig M.D. on 10/22/2018 at 11:12 Approved by: Brandt Koenig M.D. on 10/22/2018 at 11:13
== END ==
PROVIDERS: PCP Internal Medicine; Visit Provider Urology
DX: N20.0 Calculus of kidney (principal)
CPT/HCPCS: 74018

== ENCOUNTER 2019-02-19 09:56 | Emergency (ER) | payer OTHER, SELFPAY ==
[2019-02-19 10:12] VITALS: BP 148/87; PULSE 95; RESP 14; TEMP 36.5; O2SAT 99; BMI 24.3
--- NOTE | 2019-02-19 10:44 | PC.NURSE ---
h/o multiple kidney stones, sees [facility] urology. Unable to have lithotripsy r/t being on blood thinners.
[2019-02-19] MEDS: SODIUM CHLORIDE 0.9% 1,000 ML 1000 ML IV (11:00)
[2019-02-19] MEDS: KETOROLAC 60 MG/2 ML VIAL 30 MG IV (11:05)
[2019-02-19 11:06] LABS: Add Manual Diff / Slide Review NO; Basophils Absolute Auto 0 /uL (0-100); Basophils Percent Auto 0.4 % (0-2); Eosinophils Absolute Auto 100 /uL (0-450); Eosinophils Percent Auto 1.5 % (2-4); Hemoglobin 14.4 g/dL (13.5-17.5); Lymphocytes Absolute Auto 1300 /uL (1100-4500); Lymphocytes Percent Auto 16.6 % (25-40); Mean Corpuscular HGB Conc 35.2 % (30-36); Mean Corpuscular Hemoglobin 33.8 PG (26-34); Monocytes Absolute Auto 800 /uL (0-900); Monocytes Percent Auto 9.6 % (3-14); Neutrophils Absolute Auto 5700 /uL (1500-7000); Neutrophils Percent Auto 71.9 % (50-75); Platelet Count 238 X10^3/uL (150-400); Red Blood Cell Count 4.27 X10^6/uL (4.5-5.9); Red Cell Distribution Width 13.6 % (11.6-14.8); White Blood Cell Count 7.9 X10^3/uL (4.5-11.0)
[2019-02-19 11:12] LABS: INR 0.9 (0.9-1.3); Prothrombin Time 10.4 SECONDS (10.1-12.7)
[2019-02-19 11:14] LABS: PTT Partial Thromboplastin Tim 31 SECONDS (26.4-36.2)
[2019-02-19 11:18] LABS: Alanine Aminotransferase 41 IU/L (21-72); Albumin 4.2 g/dL (3.5-5.0); Albumin Globulin Ratio 1.4 (1.0-2.8); Alkaline Phosphatase 94 U/L (38-126); Aspartate Aminotransferase 30 IU/L (17-59); Bilirubin Total 0.4 mg/dL (0.2-1.3); Blood Urea Nitrogen 21 mg/dL (9-20); Calcium 9.4 mg/dL (8.4-10.2); Carbon Dioxide 22 mmol/L (22-32); Chloride 109 mmol/L (98-107); Estimated Glomerular Filt Rate > 60.0 mL/min (>60); Glucose 143 mg/dL (70-100); HEMOLYSIS < 15 (0-50); Lipase 136 U/L (23-300); Potassium 4.9 mmol/L (3.4-5.1); Sodium 140 mmol/L (137-145); Total Protein 7.2 g/dL (6.3-8.2)
[2019-02-19 11:31] LABS: Bacteria Urine Few (2-10); Culture Indicated Urine Specimen Cultured; Mucus Urine 1+ (Negative); RBC Urine 0-1/HPF (0-5/HPF); WBC Urine 30-100/HPF (0-5/HPF)
[2019-02-19] MEDS: LIDOCAINE 2% 5.3 ML in SODIUM CHLORIDE 0.9% 50 ML 331.8 ML IV (11:52)
--- NOTE | 2019-02-19 12:04 | ED_ITS ---
HPI - Male Genitourinary <KIMBERLY Leigh - Last Filed: 02/19/19 15:48> General Chief complaint: Urogenital-Male Stated complaint: L SIDE KIDNEY STONE Time Seen by Provider: 02/19/19 11:01 Source: patient Mode of arrival: Ambulatory Limitations: no limitations History of Present Illness HPI Narrative: This is a 58-year-old gentleman, smoker, who presents to ED with left flank pain radiating to his left side abdomen. He is known to have multiple kidney stones in the past and states he has has so far 69 stones in his life since age 20. Patient reports patient already had 3 kidney stones for this year. He had surgical several surgical interventions to remove kidney stones in the past. Patient has been having intermittent left flank pain for last 2 weeks but pain but the pain got severely increased since 7:00 a.m. patient reports pain is deep and pressure like any comes as a wave and rates pain as 5 to 7/10. Patient has history of myocardial infarction in July 2018 and he was scheduled to have a surgery for kidney stone but [facility] anesthesiologist did not fore-go with the surgery since patient is currently on blood thinner and for 1 year after the VT per automatic folder seamer. Patient reports his discomfort is very typical for kidney stones pain in the past. He denies fever, chills, vomiting with intermittent nausea, or hematuria. Renal ultrasound in 10/10/18 showed nonobstructing left side kidney stone major up to 5 mm. Related Data Home Medications Medication Instructions Recorded Confirmed lisinopril 20 mg PO QAM 11/14/17 02/19/19 ticagrelor [Brilinta] 90 mg PO BID 08/18/18 02/19/19 atorvastatin 80 mg PO DAILY 10/10/18 02/19/19 docusate calcium [Stool Softener] 240 mg PO DAILY 10/10/18 02/19/19 metoprolol succinate 25 mg PO BID 10/10/18 02/19/19 lisinopril 10 mg PO QPM 02/19/19 02/19/19 tamsulosin 0.4 mg PO QPM 02/19/19 02/19/19 Previous Rx's Medication Instructions Recorded aspirin 81 mg PO DAILY #10 tab 11/14/17 nitroglycerin 0.4 mg SL Q5-15M PRN #14 tab 11/14/17 cephalexin [Keflex] 500 mg PO Q6H 7 Days #28 cap 02/19/19 ondansetron 4 mg PO BID-TID PRN #10 tab 02/19/19 oxycodone-acetaminophen [Percocet] 1 tab PO Q6H PRN #12 tab 02/19/19 Allergies Allergy/AdvReac Type Severity Reaction Status Date / Time No Known Drug Allergies Allergy Verified 02/19/19 10:12 Review of Systems <KIMBERLY Leigh - Last Filed: 02/19/19 15:48> Review of Systems Narrative: General: Denies fever, chills, fatigue, malaise, sweats. HEENT: Denies sinus pain, ear pain, sore throat, difficulty swallowing, dizziness. Respiratory: Denies dyspnea, cough, wheezing, hemoptysis, sputum. Cardiovascular: Denies chest pain, palpitations, orthopnea, edema. Gastrointestinal: Reports intermittent nausea. Denies vomiting, diarrhea, constipation, melena. : See HPI Musculoskeletal: Denies weakness, joint pain or bony pain. Skin: Denies rash, skin lesions, or other. Neurologic: Denies weakness, headache, numbness, change in speech, confusion, seizures, incoordination. Psychiatric: No concerning psychosocial issues. 12-point review of systems is negative except for those stated above. Patient History <KIMBERLY Leigh - Last Filed: 02/19/19 15:48> Medical History (Updated 02/19/19 @ 12:31 by KIMBERLY Leigh) CAD (coronary artery disease) (Chronic) DJD (degenerative joint disease), cervical (Chronic) Hypertension (Chronic) Kidney stones (Chronic) Tobacco abuse (Chronic) Surgical History H/O heart artery stent (Resolved) H/O lithotripsy (Acute) No significant past surgical history (Inactive) Social History Smoking Status: Current some day smoker alcohol intake: current substance use type: does not use alcohol intake frequency: 0-2 drinks per day Substance Use Type: does not use Exam <KIMBERLY Leigh - Last Filed: 02/19/19 15:48> Narrative Exam Narrative: GEN: Alert, oriented x 3, well appearing and nourished, and in no acute distress. Head: Normal cephalic, atraumatic. No scalp or temporal tenderness, palpable mass or rash. EYES: Pupils are equal, round, and reactive to light and accommodation. Extraocular muscles are intact bilaterally. There is no subconjunctival hemorrhage, exudate and sclera non-icteric. ENT: Bilateral auditory canals and tympanic membranes clear. Hearing grossly intact. Nose without bleeding, purulent discharge or deviation. Facial sinuses nontender to palpate. Mucous membrane moist, no mucosal lesion. Throat without erythema, tonsillar hypertrophy or exudate. Uvula in midline, airway patent. Neck: Trachea in midline. No JVD, non-tender without lymphadenopathy. No masses or thyroid megaly. Supple, non-tender and no meningeal signs. CARDIAC: Normal regular rate and rhythm without murmurs, gallops, or rubs. No ch est wall tenderness. No peripheral edema, cyanosis or pallor. Capillary refill is less than 2 seconds. RESPIRATORY: Lungs are clear to auscultate bilaterally. No cough, wheezes, rales, or rhonchi. No stridor, respiratory distress, increase work of breathing, or accessary muscle used. ABD: Abdomen soft, nontender and non-distended. No guarding or rebound tenderness to palpate. Bowel sounds are normal in all 4 quadrants. There is no palpable masses or organomegaly. EXT: Full painless ROM of all extremities with no loss of sensation, strength, effusion or edema. SKIN: Warm, dry, normal color for patient. No erythema, lesions or rash over visible areas. BACK: Nontender without deformity or crepitance. No flank tenderness. NEUROLOGICAL: Alert and oriented to place, time and person. Sensation and motor function intact bilaterally. No facial droops, dysphasia. PSYCHIATRIC: Good judgement and reason, without hallucinations, abnormal affect or abnormal behaviors during the examination. Initial Vital Signs Initial Vital Signs: Vital Signs Temperature 97.7 F 02/19/19 10:12 Pulse Rate 95 H 02/19/19 10:12 Respiratory Rate 14 02/19/19 10:12 Blood Pressure 148/87 H 02/19/19 10:12 Pulse Oximetry 99 02/19/19 10:12 <Erlin Mckay DO - Last Filed: 02/19/19 16:41> Initial Vital Signs Initial Vital Signs: Vital Signs Temperature 97.7 F 02/19/19 10:12 Pulse Rate 95 H 02/19/19 10:12 Respiratory Rate 14 02/19/19 10:12 Blood Pressure 148/87 H 02/19/19 10:12 Pulse Oximetry 99 02/19/19 10:12 Scores <KIMBERLY Leigh - Last Filed: 02/19/19 15:48> GCS [place] coma scale eye opening: Spontaneous Verna coma scale verbal response: Orientated [place] coma scale motor response: Obey commands [place] coma scale total score: 15 Course <KIMBERLY Leigh - Last Filed: 02/19/19 15:48> Orders Ordered: ED Orders 02/19/19 10:54 Complete Blood Count AUTO DIFF Stat Comprehensive Metabolic Panel Stat Lipase Stat Partial Thromboplastin Time Stat Prothrombin Time INR Stat 02/19/19 11:00 Urine Culture Stat Urine Microscopic Stat Discontinued Medications Sodium Chloride (Normal Saline 0.9%) 1,000 mls @ 1,000 mls/hr IV BOLUS ONE Stop: 02/19/19 11:50 Last Infusion: 02/19/19 13:00 Dose: 0 mls/hr Documented by: Admin: 02/19/19 11:00 Dose: 1,000 mls/hr Documented by: MASON Lidocaine HCl 5.3 ml/ Sodium (Chloride) 55.3 mls @ 331.8 mls/hr IV NOW ONE Stop: 02/19/19 11:30 Last Infusion: 02/19/19 12:10 Dose: 0 mls/hr Documented by: Admin: 02/19/19 11:52 Dose: 331.8 mls/hr Documented by: MASON Ketorolac Tromethamine (Toradol) 30 mg IV NOW ONE Stop: 02/19/19 10:53 Last Admin: 02/19/19 11:05 Dose: 30 mg Documented by: MASON Reevaluation(s) Reevaluation #1: Pain improved as 2/10 after Lidocaine drip. Time: 12:19 Consultations Consultation #1: Dr. Chapman-Antibiotic coverage, pain management, continue with the tamsulosin and follow up with Dr. Couch Time: 12:24 Vital Signs Vital signs: Vital Signs - 8 hr 02/19/19 10:12 02/19/19 12:40 Temperature 97.7 F Pulse Rate 95 H 78 Respiratory Rate 14 10 L Blood Pressure 148/87 H Blood Pressure [Right Arm] 146/85 H Pulse Oximetry 99 97 <Erlin Mckay DO - Last Filed: 02/19/19 16:41> Orders Ordered: ED Orders 02/19/19 10:54 Complete Blood Count AUTO DIFF Stat Comprehensive Metabolic Panel Stat Lipase Stat Partial Thromboplastin Time Stat Prothrombin Time INR Stat 02/19/19 11:00 Urine Culture Stat Urine Microscopic Stat Discontinued Medications Sodium Chloride (Normal Saline 0.9%) 1,000 mls @ 1,000 mls/hr IV BOLUS ONE Stop: 02/19/19 11:50 Last Infusion: 02/19/19 13:00 Dose: 0 mls/hr Documented by: Admin: 02/19/19 11:00 Dose: 1,000 mls/hr Documented by: MASON Lidocaine HCl 5.3 ml/ Sodium (Chloride) 55.3 mls @ 331.8 mls/hr IV NOW ONE Stop: 02/19/19 11:30 Last Infusion: 02/19/19 12:10 Dose: 0 mls/hr Documented by: Admin: 02/19/19 11:52 Dose: 331.8 mls/hr Documented by: MASON Ketorolac Tromethamine (Toradol) 30 mg IV NOW ONE Stop: 02/19/19 10:53 Last Admin: 02/19/19 11:05 Dose: 30 mg Documented by: MASON Vital Signs Vital signs: Vital Signs - 8 hr 02/19/19 10:12 02/19/19 12:40 Temperature 97.7 F Pulse Rate 95 H 78 Respiratory Rate 14 10 L Blood Pressure 148/87 H Blood Pressure [Right Arm] 146/85 H Pulse Oximetry 99 97 MDM - Male Genitourinary <KIMBERLY Leigh - Last Filed: 02/19/19 15:48> Differential Diagnosis Differential diagnosis: Likely urinary tract infection and other (Kidney stone, diverticulitis) Medical Records Attestation: I reviewed the patient's medical records. Lab Data Attestation: I reviewed the patient's lab results. Result diagrams: 02/19/19 10:54 02/19/19 10:54 Labs: Lab Results 02/19/19 02/19/19 02/19/19 Range/Units 10:54 10:54 10:54 WBC 7.9 (4.5-11.0) X10^3/uL RBC 4.27 L (4.5-5.9) X10^6/uL Hgb 14.4 (13.5-17.5) g/dL Hct 41.0 (41-53) % MCV 96.0 (80-100) fL MCH 33.8 (26-34) PG MCHC 35.2 (30-36) % RDW 13.6 (11.6-14.8) % Plt Count 238 (150-400) X10^3/uL Neut % (Auto) 71.9 (50-75) % Lymph % (Auto) 16.6 L (25-40) % [place] % (Auto) 9.6 (3-14) % Eos % (Auto) 1.5 L (2-4) % Baso % (Auto) 0.4 (0-2) % Neut # (Auto) 5700 (4692-3484) /uL Lymph # (Auto) 1300 (5502-1025) /uL [place] # (Auto) 800 (0-900) /uL Eos # (Auto) 100 (0-450) /uL Baso # (Auto) 0 (0-100) /uL PT 10.4 (10.1-12.7) SECONDS INR 0.9 (0.9-1.3) APTT 31 D (26.4-36.2) SECONDS Sodium 140 (137-145) mmol/L Potassium 4.9 (3.4-5.1) mmol/L Chloride 109 H (98-107) mmol/L Carbon Dioxide 22 (22-32) mmol/L BUN 21 H (9-20) mg/dL Creatinine 1.00 (0.66-1.25) mg/dL Estimated GFR > 60.0 (>60) mL/min BUN/Creatinine Ratio 21.0 (6-22) Glucose 143 H (70-100) mg/dL Calcium 9.4 (8.4-10.2) mg/dL Total Bilirubin 0.4 (0.2-1.3) mg/dL AST 30 (17-59) IU/L ALT 41 (21-72) IU/L Alkaline Phosphatase 94 (38-126) U/L Total Protein 7.2 (6.3-8.2) g/dL Albumin 4.2 (3.5-5.0) g/dL Globulin 3.0 (1.7-4.1) g/dL Albumin/Globulin Ratio 1.4 (1.0-2.8) Lipase 136 (23-300) U/L Urine RBC (0-5/HPF) Urine WBC (0-5/HPF) Urine Bacteria (None) Urine Mucus (Negative) Ur Culture Indicated? 02/19/19 Range/Units 11:00 WBC (4.5-11.0) X10^3/uL RBC (4.5-5.9) X10^6/uL Hgb (13.5-17.5) g/dL Hct (41-53) % MCV (80-100) fL MCH (26-34) PG MCHC (30-36) % RDW (11.6-14.8) % Plt Count (150-400) X10^3/uL Neut % (Auto) (50-75) % Lymph % (Auto) (25-40) % [place] % (Auto) (3-14) % Eos % (Auto) (2-4) % Baso % (Auto) (0-2) % Neut # (Auto) (0398-6729) /uL Lymph # (Auto) (3477-6365) /uL [place] # (Auto) (0-900) /uL Eos # (Auto) (0-450) /uL Baso # (Auto) (0-100) /uL PT (10.1-12.7) SECONDS INR (0.9-1.3) APTT (26.4-36.2) SECONDS Sodium (137-145) mmol/L Potassium (3.4-5.1) mmol/L Chloride (98-107) mmol/L Carbon Dioxide (22-32) mmol/L BUN (9-20) mg/dL Creatinine (0.66-1.25) mg/dL Estimated GFR (>60) mL/min BUN/Creatinine Ratio (6-22) Glucose (70-100) mg/dL Calcium (8.4-10.2) mg/dL Total Bilirubin (0.2-1.3) mg/dL AST (17-59) IU/L ALT (21-72) IU/L Alkaline Phosphatase (38-126) U/L Total Protein (6.3-8.2) g/dL Albumin (3.5-5.0) g/dL Globulin (1.7-4.1) g/dL Albumin/Globulin Ratio (1.0-2.8) Lipase (23-300) U/L Urine RBC 0-1/hpf (0-5/HPF) Urine WBC 30-100/hpf H (0-5/HPF) Urine Bacteria Few (2-10) H (None) Urine Mucus 1+ H (Negative) Ur Culture Indicated? Specimen cultured Urine Dip Bedside Urine Glucose Negative Bedside Urine Bilirubin - Negative Bedside Urine Ketone - Negative Urine Specific [place] 1.015 Bedside Urine Occult Blood - Negative Bedside Urine pH 5.5 Bedside Urine Protein +/- 15 Bedside Urine Urobilinogen - Negative Bedside Urine Nitrite - Negative Bedside Urine Leukocytes + 70 Esterase MDM Narrative Medical decision making narrative: This is a 58-year-old gentleman who has multiple history of bilateral kidney stones since age 20. Patient already had 3 kidney stones during this year. Patient reports intermittent left flank pain radiating to left side and abdomen for last 2 weeks which is worse since last night. Patient reports this discomfort is typical kidney stone pain the patient has and describes as it looks like a duck, coax like a duck and swims like a duck. Imaging test was deferred at this time. Last renal ultrasound showed patient has stone in left kidney measuring it 5mm. Patient denies constitutional symptoms or hematuria. Today's kidney function was within normal. Patient is currently on Flomax daily per Dr. Couch, his urologist. Patient was treated with IV fluid, Toradol and Lidocaine drip which improved pain. Given patient's history of kidney infection with the stone, patient will be treated with a course of Keflex antibiotic medication. Urine culture is being done at this time. [place] urologist, Dr. Motley was contacted and discussed patient's condition and advised to follow up as outpatient with pain management, antibiotic medication, and continue with daily tamsulosin. Above findings were discussed with the patient and we discussed strict return precautions for additional imaging test and verbalized understanding and agrees with treatment plan. Patient has follow-up appointment with his primary care physician and [facility] on . Patient will call the Urology Clinic to be seen in next 2-3 days. Patient discharged to home with Percocet and Zofran. <Erlin Mckay, - Last Filed: 02/19/19 16:41> Lab Data Labs: Lab Results 02/19/19 02/19/19 02/19/19 Range/Units 10:54 10:54 10:54 WBC 7.9 (4.5-11.0) X10^3/uL RBC 4.27 L (4.5-5.9) X10^6/uL Hgb 14.4 (13.5-17.5) g/dL Hct 41.0 (41-53) % MCV 96.0 (80-100) fL MCH 33.8 (26-34) PG MCHC 35.2 (30-36) % RDW 13.6 (11.6-14.8) % Plt Count 238 (150-400) X10^3/uL Neut % (Auto) 71.9 (50-75) % Lymph % (Auto) 16.6 L (25-40) % [place] % (Auto) 9.6 (3-14) % Eos % (Auto) 1.5 L (2-4) % Baso % (Auto) 0.4 (0-2) % Neut # (Auto) 5700 (1125-4226) /uL Lymph # (Auto) 1300 (9758-2017) /uL [place] # (Auto) 800 (0-900) /uL Eos # (Auto) 100 (0-450) /uL Baso # (Auto) 0 (0-100) /uL PT 10.4 (10.1-12.7) SECONDS INR 0.9 (0.9-1.3) APTT 31 D (26.4-36.2) SECONDS Sodium 140 (137-145) mmol/L Potassium 4.9 (3.4-5.1) mmol/L Chloride 109 H (98-107) mmol/L Carbon Dioxide 22 (22-32) mmol/L BUN 21 H (9-20) mg/dL Creatinine 1.00 (0.66-1.25) mg/dL Estimated GFR > 60.0 (>60) mL/min BUN/Creatinine Ratio 21.0 (6-22) Glucose 143 H (70-100) mg/dL Calcium 9.4 (8.4-10.2) mg/dL Total Bilirubin 0.4 (0.2-1.3) mg/dL AST 30 (17-59) IU/L ALT 41 (21-72) IU/L Alkaline Phosphatase 94 (38-126) U/L Total Protein 7.2 (6.3-8.2) g/dL Albumin 4.2 (3.5-5.0) g/dL Globulin 3.0 (1.7-4.1) g/dL Albumin/Globulin Ratio 1.4 (1.0-2.8) Lipase 136 (23-300) U/L Urine RBC (0-5/HPF) Urine WBC (0-5/HPF) Urine Bacteria (None) Urine Mucus (Negative) Ur Culture Indicated? 02/19/19 Range/Units 11:00 WBC (4.5-11.0) X10^3/uL RBC (4.5-5.9) X10^6/uL Hgb (13.5-17.5) g/dL Hct (41-53) % MCV (80-100) fL MCH (26-34) PG MCHC (30-36) % RDW (11.6-14.8) % Plt Count (150-400) X10^3/uL Neut % (Auto) (50-75) % Lymph % (Auto) (25-40) % [place] % (Auto) (3-14) % Eos % (Auto) (2-4) % Baso % (Auto) (0-2) % Neut # (Auto) (9718-5094) /uL Lymph # (Auto) (3884-7292) /uL [place] # (Auto) (0-900) /uL Eos # (Auto) (0-450) /uL Baso # (Auto) (0-100) /uL PT (10.1-12.7) SECONDS INR (0.9-1.3) APTT (26.4-36.2) SECONDS Sodium (137-145) mmol/L Potassium (3.4-5.1) mmol/L Chloride (98-107) mmol/L Carbon Dioxide (22-32) mmol/L BUN (9-20) mg/dL Creatinine (0.66-1.25) mg/dL Estimated GFR (>60) mL/min BUN/Creatinine Ratio (6-22) Glucose (70-100) mg/dL Calcium (8.4-10.2) mg/dL Total Bilirubin (0.2-1.3) mg/dL AST (17-59) IU/L ALT (21-72) IU/L Alkaline Phosphatase (38-126) U/L Total Protein (6.3-8.2) g/dL Albumin (3.5-5.0) g/dL Globulin (1.7-4.1) g/dL Albumin/Globulin Ratio (1.0-2.8) Lipase (23-300) U/L Urine RBC 0-1/hpf (0-5/HPF) Urine WBC 30-100/hpf H (0-5/HPF) Urine Bacteria Few (2-10) H (None) Urine Mucus 1+ H (Negative) Ur Culture Indicated? Specimen cultured Urine Dip Bedside Urine Glucose Negative Bedside Urine Bilirubin - Negative Bedside Urine Ketone - Negative Urine Specific [place] 1.015 Bedside Urine Occult Blood - Negative Bedside Urine pH 5.5 Bedside Urine Protein +/- 15 Bedside Urine Urobilinogen - Negative Bedside Urine Nitrite - Negative Bedside Urine Leukocytes + 70 Esterase Discharge Plan Departure Patient Disposition: Home Clinical Impression: Renal colic on left side, Bladder infection Discharge Date/Time: 02/19/19 13:13 Instructions: DI for Kidney Infection, DI for Urinary Tract Infection (UTI) Activity Restrictions/Additional Instructions: You have been diagnosed with [kidney stone pain and kidney infection]. What to do: *Take your medications as directed. Percocet may cause drowsiness so please do not drive, take alcohol, or operate heavy equipments. You can take Zofran as needed for nausea. Keflex has been ordered to cover infection. Antibiotic medication and Zofran has been transmitted to [facility] at [place]. The urine is being cultured at this time and will get a phone call if you need different antibiotic medication coverage. *Follow up with your primary care provider in 2-3 days as scheduled. Please follow up with Dr. Couch's office this week. I spoke with Dr. Chapman over the phone to inform your condition. Let them know you were seen in the ED and that we asked you to be seen in follow up. *Return to ED if you have any new, worsening, or concerning symptoms, such as [fever, increasing pain, unable to tolerate fluids, unable to void for prolonged time, chest pain, breathing difficulty, or any acute concerns]. Prescriptions: New oxycodone-acetaminophen [Percocet] 5-325 mg tablet 1 tab PO Q6H PRN (Reason: pain) Qty: 12 RF: 0 ondansetron 4 mg tablet,disintegrating 4 mg PO BID-TID PRN (Reason: nausea and vomiting) Qty: 10 RF: 0 cephalexin [Keflex] 500 mg capsule 500 mg PO Q6H 7 Days Qty: 28 RF: 0 No Action lisinopril 20 mg Tablet 20 mg PO QAM RF: 0 nitroglycerin 0.4 mg tablet, sublingual 0.4 mg SL Q5-15M PRN (Reason: chest pain) Qty: 14 RF: 0 aspirin 81 mg tablet,chewable 81 mg PO DAILY Qty: 10 RF: 0 atorvastatin 80 mg tablet 80 mg PO DAILY RF: 0 docusate calcium [Stool Softener] 240 mg capsule 240 mg PO DAILY RF: 0 metoprolol succinate 25 mg tablet extended release 24 hr 25 mg PO BID RF: 0 Brilinta 90 mg tablet 90 mg PO BID RF: 0 lisinopril 20 mg tablet 10 mg PO QPM RF: 0 tamsulosin 0.4 mg capsule 0.4 mg PO QPM RF: 0 Referrals: Nataliya Couch MD [Non-Staff] - Daniella Sanchez MD [Primary Care Provider] - <Erlin Mckay DO - Last Filed: 02/19/19 16:41> Sign Out Provider Sign Out Attestation: I was available for consultation during this patient's emergency department visit. This chart is signed by myself for administrative purposes only. I did not have direct contact with this patient during this visit. They were seen independently by the [facility].
[2019-02-19 12:40] VITALS: BP 146/85; PULSE 78; RESP 10; O2SAT 97
== END 2019-02-19 13:13 | disposition home or self-care (01) ==
PROVIDERS: Emergency Medicine; Emergency Provider Nurse Practitioner Family; PCP Internal Medicine
DX: N23 Unspecified renal colic (principal); N30.90 Cystitis, unspecified without hematuria; Z87.442 Personal history of urinary calculi
CPT/HCPCS: 36415; 80053; 81003; 81015; 83690; 85025; 85610; 85730; 87077; 87086; 87185; 87186; 96361; 96365; 96375; 99283; 99284; J1885

== ENCOUNTER 2019-05-13 17:54 | Emergency (ER) | payer OTHER, SELFPAY ==
[2019-05-13 18:00] VITALS: BP 174/88; PULSE 87; RESP 16; TEMP 36.7; O2SAT 100; BMI 25.8
--- NOTE | 2019-05-13 18:06 | ED.MALEGU ---
HPI - Male Genitourinary General Chief complaint: Urogenital-Male Stated complaint: left flank pain Time Seen by Provider: 05/13/19 18:00 Source: patient Mode of arrival: Ambulatory History of Present Illness HPI Narrative: 59-year-old smoker with extensive history of kidney stones presents with a chief complaint of left flank pain with radiation into his left groin. He denies provocation or palliation. He denies any fever or chills. He is not dizzy nor weak or lightheaded. He denies any recent injury or trauma. MD Complaint: other Onset (ago): hour(s) Duration: intermittent Location: left inguinal region and left flank Severity: severe Quality: sharp and stabbing Relieving factors: none Exacerbating factors: none Associated symptoms: Reports nausea/vomiting Related Data Home Medications Medication Instructions Recorded Confirmed lisinopril 20 mg PO QAM 11/14/17 02/19/19 ticagrelor [Brilinta] 90 mg PO BID 08/18/18 02/19/19 atorvastatin 80 mg PO DAILY 10/10/18 02/19/19 docusate calcium [Stool Softener] 240 mg PO DAILY 10/10/18 02/19/19 metoprolol succinate 25 mg PO BID 10/10/18 02/19/19 lisinopril 10 mg PO QPM 02/19/19 02/19/19 tamsulosin 0.4 mg PO QPM 02/19/19 02/19/19 Previous Rx's Medication Instructions Recorded aspirin 81 mg PO DAILY #10 tab 11/14/17 nitroglycerin 0.4 mg SL Q5-15M PRN #14 tab 11/14/17 ondansetron 4 mg PO BID-TID PRN #10 tab 02/19/19 oxycodone-acetaminophen [Percocet] 1 tab PO Q6H PRN #12 tab 02/19/19 ondansetron 4 mg PO Q8H PRN #10 tab 05/13/19 oxycodone 5 mg PO Q6H PRN #10 tab 05/13/19 Allergies Allergy/AdvReac Type Severity Reaction Status Date / Time No Known Drug Allergies Allergy Verified 05/13/19 18:00 Review of Systems Constitutional Constitutional: Denies chills, Denies fatigue, Denies fever(s), Denies frequent falls, Denies lethargy and Denies weakness Eyes Eyes: Denies change in vision, Denies eye discharge, Denies irritation and Denies loss of vision ENT Ears, Nose, Mouth, and Throat: Denies change in voice, Denies dizziness, Denies neck pain, Denies sore throat and Denies throat swelling Cardiovascular Cardiovascular: Denies chest pain, Denies irregular heart rhythm, Denies lightheadedness, Denies palpitations, Denies dyspnea, Denies dyspnea on exertion and Denies orthopnea Respiratory Respiratory: Denies cough, Denies dyspnea, Denies dyspnea on exertion and Denies wheezing Gastrointestinal Gastrointestinal: Denies abdominal pain, Denies change in bowel habits, Denies diarrhea, Denies nausea and Denies vomiting Genitourinary Genitourinary: Denies hematuria, Reports flank pain, Denies urinary incontinence and Denies urinary urgency Musculoskeletal Musculoskeletal: Denies back pain, Denies muscle weakness, Denies neck pain, Denies numbness and Denies tingling Integumentary/Breasts Skin/Breast: Denies pruritus, Denies erythema, Denies rash and Denies wounds Neurologic Neurologic: Denies behavioral changes, Denies confusion, Denies dizziness, Denies frequent falls, Denies loss of vision, Denies numbness, Denies tingling and Denies weakness Psychiatric Psychiatric: Denies anxiety, Denies behavioral changes, Denies confusion, Denies depression, Denies homicidal ideation and Denies suicidal ideation Endocrine Endocrine: Denies fatigue, Denies flushing and Denies palpitations Hematologic/Lymphatic Hematologic/Lymphatic: Denies easy bruising Allergic/Immunologic Allergic/Immunologic: Denies urticaria, Denies throat swelling and Denies wheezing Patient History Medical History CAD (coronary artery disease) (Chronic) DJD (degenerative joint disease), cervical (Chronic) Hypertension (Chronic) Kidney stones (Chronic) Tobacco abuse (Chronic) Surgical History H/O heart artery stent (Resolved) H/O lithotripsy (Acute) No significant past surgical history (Inactive) Social History Smoking Status: Current some day smoker alcohol intake: current substance use type: does not use Smoking Status: Current some day smoker alcohol intake frequency: 0-2 drinks per day Substance Use Type: does not use Exam Narrative Exam Narrative: GENERAL: [59] year old patient appears stated age. Well-nourished, well-developed patient, in obvious pain, clutching his left flank HEAD: Atraumatic. Normocephalic. EYES: Pupils equal round and reactive. Extraocular motions intact. No scleral icterus. No injection or drainage. ENT: Nose without bleeding, purulent drainage. Throat without erythema, tonsillar hypertrophy or exudate. Airway patent. NECK: Trachea midline. Non tender CARDIOVASCULAR: Regular rate and rhythm without murmurs, gallops, or rubs. RESPIRATORY: Clear to auscultation. Breath sounds equal bilaterally. No wheezes, rales, or rhonchi. GASTROINTESTINAL: Abdomen soft, non-tender, nondistended. EXTREMITIES: No edema or joint tenderness. BACK: Nontender without deformity or crepitance. No flank tenderness. NEURO: AOx3. SKIN: No rash or erythema of visible areas Initial Vital Signs Initial Vital Signs: Vital Signs Temperature 98.0 F 05/13/19 18:00 Pulse Rate 87 05/13/19 18:00 Respiratory Rate 16 05/13/19 18:00 Blood Pressure 174/88 H 05/13/19 18:00 Pulse Oximetry 100 05/13/19 18:00 Course Orders Ordered: Discontinued Medications Lidocaine HCl 5.6 ml/ Sodium (Chloride) 55.6 mls @ 333.6 mls/hr IV NOW ONE Stop: 05/13/19 19:14 Last Infusion: 05/13/19 20:30 Dose: 0 mls/hr Documented by: Admin: 05/13/19 19:36 Dose: 333.6 mls/hr Documented by: CAROLYN Sodium Chloride (Normal Saline 0.9%) 1,000 mls @ 1,000 mls/hr IV BOLUS ONE Stop: 05/13/19 20:12 Last Infusion: 05/13/19 20:30 Dose: 0 mls/hr Documented by: Admin: 05/13/19 19:28 Dose: 1,000 mls/hr Documented by: CAROLYN Ketorolac Tromethamine (Toradol) 15 mg IV NOW ONE Stop: 05/13/19 19:14 Last Admin: 05/13/19 19:38 Dose: 15 mg Documented by: CAROLYN Ondansetron HCl (Zofran Odt Prepack) 1 bottle MISC SEEINSTR ONE Stop: 05/13/19 20:32 Last Admin: 05/13/19 20:44 Dose: 1 bottle Documented by: MANUEL Oxycodone/Acetaminophen (Endocet 5/325 Prepack) 1 bottle MISC SEEINSTR ONE Stop: 05/13/19 20:32 Last Admin: 05/13/19 20:44 Dose: 1 bottle Documented by: MANUEL Reevaluation(s) Reevaluation #1: Near complete resolution of symptoms after above-stated therapies Vital Signs Vital signs: Vital Signs - 8 hr 05/13/19 18:00 Temperature 98.0 F Pulse Rate 87 Respiratory Rate 16 Blood Pressure 174/88 H Pulse Oximetry 100 MDM - Male Genitourinary Lab Data Result diagrams: 05/13/19 18:43 05/13/19 18:43 Labs: Lab Results 05/13/19 05/13/19 05/13/19 Range/Units 18:43 18:43 19:00 WBC 9.6 (4.5-11.0) X10^3/uL RBC 4.58 (4.5-5.9) X10^6/uL Hgb 15.1 (13.5-17.5) g/dL Hct 43.6 (41-53) % MCV 95.1 (80-100) fL MCH 32.9 (26-34) PG MCHC 34.6 (30-36) % RDW 13.6 (11.6-14.8) % Plt Count 280 (150-400) X10^3/uL Neut % (Auto) 66.9 (50-75) % Lymph % (Auto) 19.3 L (25-40) % [place] % (Auto) 11.6 (3-14) % Eos % (Auto) 1.5 L (2-4) % Baso % (Auto) 0.7 (0-2) % Neut # (Auto) 6400 (8324-6897) /uL Lymph # (Auto) 1900 (7579-7090) /uL [place] # (Auto) 1100 H (0-900) /uL Eos # (Auto) 100 (0-450) /uL Baso # (Auto) 100 (0-100) /uL Sodium 139 (137-145) mmol/L Potassium 4.5 (3.4-5.1) mmol/L Chloride 106 (98-107) mmol/L Carbon Dioxide 25 (22-32) mmol/L BUN 19 (9-20) mg/dL Creatinine 1.10 (0.66-1.25) mg/dL Estimated GFR > 60.0 (>60) mL/min BUN/Creatinine Ratio 17.3 (6-22) Glucose 111 H (80-110) mg/dL Calcium 9.6 (8.4-10.2) mg/dL Urine RBC 30-100/hpf H (0-5/HPF) Urine WBC 1-5/hpf (0-5/HPF) Urine Bacteria Few (2-10) H (None) Ur Culture Indicated? Specimen cultured Urine Dip Bedside Urine Glucose Negative Bedside Urine Bilirubin - Negative Bedside Urine Ketone - Negative Urine Specific [place] 1.020 Bedside Urine Occult Blood +++ Bedside Urine pH 6.0 Bedside Urine Protein + 30 Bedside Urine Urobilinogen - Negative Bedside Urine Nitrite - Negative Bedside Urine Leukocytes + 70 Esterase MDM Narrative Medical decision making narrative: Patient was strong history of kidney stones presents under similar circumstances with a very convincing story and exam. No signs of renal failure for sepsis. Patient responded quite well to therapy. No additional imaging needed. Return precautions given and questions answered to the apparent satisfaction of the patient Discharge Plan Departure Patient Disposition: Home Clinical Impression: Ureterolithiasis Discharge Date/Time: 05/13/19 20:48 Instructions: DI for Kidney Stones Activity Restrictions/Additional Instructions: *You have been diagnosed with [ kidney stone ] *What to do: *Take medications as directed *Follow up with your primary care provider in 2-3 days, call for an appointment. Let them know you were seen in the Emergency Department and that we ask that you be seen in follow up *Return to ER if you should have any new, worsening or concerning symptoms Prescriptions: New oxycodone 5 mg tablet 5 mg PO Q6H PRN (Reason: pain) Qty: 10 RF: 0 ondansetron 4 mg tablet,disintegrating 4 mg PO Q8H PRN (Reason: nausea and vomiting) Qty: 10 RF: 0 No Action lisinopril 20 mg Tablet 20 mg PO QAM RF: 0 nitroglycerin 0.4 mg tablet, sublingual 0.4 mg SL Q5-15M PRN (Reason: chest pain) Qty: 14 RF: 0 aspirin 81 mg tablet,chewable 81 mg PO DAILY Qty: 10 RF: 0 atorvastatin 80 mg tablet 80 mg PO DAILY RF: 0 docusate calcium [Stool Softener] 240 mg capsule 240 mg PO DAILY RF: 0 metoprolol succinate 25 mg tablet extended release 24 hr 25 mg PO BID RF: 0 Brilinta 90 mg tablet 90 mg PO BID RF: 0 lisinopril 20 mg tablet 10 mg PO QPM RF: 0 tamsulosin 0.4 mg capsule 0.4 mg PO QPM RF: 0 oxycodone-acetaminophen [Percocet] 5-325 mg tablet 1 tab PO Q6H PRN (Reason: pain) Qty: 12 RF: 0 ondansetron 4 mg tablet,disintegrating 4 mg PO BID-TID PRN (Reason: nausea and vomiting) Qty: 10 RF: 0 Referrals: Daniella Sanchez MD [Primary Care Provider] -
[2019-05-13 18:47] LABS: Add Manual Diff / Slide Review NO; Basophils Absolute Auto 100 /uL (0-100); Basophils Percent Auto 0.7 % (0-2); Eosinophils Absolute Auto 100 /uL (0-450); Eosinophils Percent Auto 1.5 % (2-4); Hematocrit 43.6 % (41-53); Hemoglobin 15.1 g/dL (13.5-17.5); Lymphocytes Absolute Auto 1900 /uL (1100-4500); Lymphocytes Percent Auto 19.3 % (25-40); Mean Corpuscular HGB Conc 34.6 % (30-36); Mean Corpuscular Hemoglobin 32.9 PG (26-34); Mean Corpuscular Volume 95.1 fL (80-100); Monocytes Absolute Auto 1100 /uL (0-900); Monocytes Percent Auto 11.6 % (3-14); Neutrophils Absolute Auto 6400 /uL (1500-7000); Neutrophils Percent Auto 66.9 % (50-75); Platelet Count 280 X10^3/uL (150-400); Red Blood Cell Count 4.58 X10^6/uL (4.5-5.9); Red Cell Distribution Width 13.6 % (11.6-14.8); White Blood Cell Count 9.6 X10^3/uL (4.5-11.0)
[2019-05-13 18:59] LABS: BUN Creatinine Ratio 17.3 (6-22); Blood Urea Nitrogen 19 mg/dL (9-20); Calcium 9.6 mg/dL (8.4-10.2); Carbon Dioxide 25 mmol/L (22-32); Chloride 106 mmol/L (98-107); Estimated Glomerular Filt Rate > 60.0 mL/min (>60); Glucose 111 mg/dL (80-110); HEMOLYSIS < 15 (0-50); Potassium 4.5 mmol/L (3.4-5.1); Sodium 139 mmol/L (137-145)
[2019-05-13 19:16] LABS: Bacteria Urine Few (2-10); Culture Indicated Urine Specimen Cultured; RBC Urine 30-100/HPF (0-5/HPF); WBC Urine 1-5/HPF (0-5/HPF)
[2019-05-13] MEDS: SODIUM CHLORIDE 0.9% 1,000 ML 1000 ML IV (19:28)
[2019-05-13] MEDS: LIDOCAINE 2% 5.6 ML in SODIUM CHLORIDE 0.9% 50 ML 333.6 ML IV (19:36)
[2019-05-13] MEDS: KETOROLAC 60 MG/2 ML VIAL 15 MG IV (19:38)
[2019-05-13 20:38] VITALS: BP 137/77; PULSE 68; O2SAT 98
[2019-05-13] MEDS: OXYCODONE/APAP 5/325 PREPACK 1 BOTTLE MISC (20:44)
[2019-05-13] MEDS: ONDANSETRON 4 MG ODT PREPACK 1 BOTTLE MISC (20:44)
== END 2019-05-13 20:48 | disposition home or self-care (01) ==
PROVIDERS: Emergency Provider Emergency Medicine; PCP Internal Medicine
DX: N20.1 Calculus of ureter (principal); Z87.442 Personal history of urinary calculi
CPT/HCPCS: 36415; 80048; 81003; 81015; 85025; 87077; 87086; 87186; 96365; 96375; 99284; J1885

== ENCOUNTER 2019-06-13 19:59 | Emergency (ER) | payer OTHER, SELFPAY ==
[2019-06-13 20:06] VITALS: BP 160/80; PULSE 88; RESP 18; TEMP 36.6; O2SAT 98
--- NOTE | 2019-06-13 20:26 | ED.BACK ---
HPI - Back Pain/Injury General Chief Complaint: Back Pain/Injury Stated Complaint: thinks kidney stone Time Seen by Provider: 06/13/19 20:18 Source: patient Mode of arrival: Ambulatory Limitations: no limitations History of Present Illness HPI Narrative: 59-year-old male with a reported history of greater than 70 kidney stones in the past here for evaluation of right-sided pain he states that is consistent with his prior history kidney stones. Pain was sudden onset approximately 4 hours ago. No nausea vomiting. Patient states this feels just like his prior kidney stones. He states that in the past lidocaine has helped his symptoms. He is requesting that again. Patient also is requesting a CT scan. He understands that this is radiation exposure however he states that the last time he was told that he just had a urinary tract infection and it ended up being a stone. He wanted to be sure that his symptoms today were kidney stones. Related Data Home Medications Medication Instructions Recorded Confirmed lisinopril 20 mg PO QAM 11/14/17 02/19/19 ticagrelor [Brilinta] 90 mg PO BID 08/18/18 02/19/19 atorvastatin 80 mg PO DAILY 10/10/18 02/19/19 docusate calcium [Stool Softener] 240 mg PO DAILY 10/10/18 02/19/19 metoprolol succinate 25 mg PO BID 10/10/18 02/19/19 lisinopril 10 mg PO QPM 02/19/19 02/19/19 tamsulosin 0.4 mg PO QPM 02/19/19 02/19/19 Previous Rx's Medication Instructions Recorded aspirin 81 mg PO DAILY #10 tab 11/14/17 nitroglycerin 0.4 mg SL Q5-15M PRN #14 tab 11/14/17 ondansetron 4 mg PO BID-TID PRN #10 tab 02/19/19 oxycodone-acetaminophen [Percocet] 1 tab PO Q6H PRN #12 tab 02/19/19 ondansetron 4 mg PO Q8H PRN #10 tab 05/13/19 oxycodone 5 mg PO Q6H PRN #10 tab 05/13/19 hydrocodone-acetaminophen [Kellogg] 1 tab PO Q4-6H PRN #14 tab 06/13/19 ondansetron HCl [Zofran] 4 mg PO Q6H PRN #14 tab 06/13/19 Allergies Allergy/AdvReac Type Severity Reaction Status Date / Time No Known Drug Allergies Allergy Verified 05/13/19 18:00 Review of Systems Constitutional Constitutional: Denies fever(s) Cardiovascular Cardiovascular: Denies chest pain and Denies dyspnea Respiratory Respiratory: Denies dyspnea Gastrointestinal Gastrointestinal: Denies abdominal pain, Denies nausea and Denies vomiting Genitourinary Genitourinary: Reports flank pain Integumentary/Breasts Skin/Breast: Denies lesions and Denies rash Neurologic Neurologic: Denies behavioral changes Psychiatric Psychiatric: Denies behavioral changes Hematologic/Lymphatic Hematologic/Lymphatic: Denies easy bleeding and Denies easy bruising Patient History Medical History CAD (coronary artery disease) (Chronic) DJD (degenerative joint disease), cervical (Chronic) Hypertension (Chronic) Kidney stones (Chronic) Tobacco abuse (Chronic) Social History Smoking Status: Current some day smoker alcohol intake: current substance use type: does not use Smoking Status: Current some day smoker alcohol intake frequency: 0-2 drinks per day Substance Use Type: does not use Exam Initial Vital Signs Initial Vital Signs: Vital Signs Temperature 97.9 F 06/13/19 20:06 Pulse Rate 88 06/13/19 20:06 Respiratory Rate 18 06/13/19 20:06 Blood Pressure 160/80 H 06/13/19 20:06 Pulse Oximetry 98 06/13/19 20:06 Const General: comfortable HENMT Head: normal to inspection and normocephalic Resp Effort & Inspection: normal respiratory effort Cardio Rate: regular rate Rhythm: regular rhythm Skin Lesions: no lesions Rashes: no rashes Neuro General: alert and awake Cognition: normal cognition Speech: speech normal Extrem General: capillary refill normal Psych Appearance: grossly normal and well kempt Course Orders Ordered: ED Orders 06/13/19 20:26 CT kidney ureter bladder (KUB) Stat 06/13/19 20:40 Basic Metabolic Panel Stat Complete Blood Count AUTO DIFF Stat Discontinued Medications Hydrocodone Bitart/Acetaminophen (Vicodin 5/325 Prepack) 1 bottle MISC SEEINSTR ONE Stop: 06/13/19 21:56 Last Admin: 06/13/19 22:06 Dose: 1 bottle Documented by: DOMINIC Lidocaine HCl 5.4 ml/ Sodium (Chloride) 55.4 mls @ 332.4 mls/hr IV NOW ONE Stop: 06/13/19 20:27 Last Infusion: 06/13/19 20:58 Dose: 332.4 mls/hr Documented by: Admin: 06/13/19 20:39 Dose: 332.4 mls/hr Documented by: MASON Ketorolac Tromethamine (Toradol) 30 mg IV NOW ONE Stop: 06/13/19 20:27 Last Admin: 06/13/19 20:39 Dose: 30 mg Documented by: MASON Ondansetron HCl (Zofran Odt Prepack) 1 bottle MISC SEEINSTR ONE Stop: 06/13/19 21:56 Last Admin: 06/13/19 22:05 Dose: 1 bottle Documented by: DOMINIC Vital Signs Vital signs: Vital Signs - 8 hr 06/13/19 20:06 06/13/19 22:04 Temperature 97.9 F Pulse Rate 79 Pulse Rate [Left] 88 Respiratory Rate 18 16 Blood Pressure 159/80 H Blood Pressure [Left Arm] 160/80 H Pulse Oximetry 98 98 MDM - Back Pain/Injury Lab Data Attestation: I reviewed the patient's lab results. Result diagrams: 06/13/19 20:40 06/13/19 20:40 Labs: Lab Results 06/13/19 06/13/19 Range/Units 20:40 20:40 WBC 7.5 (4.5-11.0) X10^3/uL RBC 4.41 L (4.5-5.9) X10^6/uL Hgb 14.3 (13.5-17.5) g/dL Hct 42.4 (41-53) % MCV 96.1 (80-100) fL MCH 32.4 (26-34) PG MCHC 33.7 (30-36) % RDW 14.4 (11.6-14.8) % Plt Count 242 (150-400) X10^3/uL Neut % (Auto) 65.4 (50-75) % Lymph % (Auto) 22.3 L (25-40) % [place] % (Auto) 9.3 (3-14) % Eos % (Auto) 2.4 (2-4) % Baso % (Auto) 0.6 (0-2) % Neut # (Auto) 4900 (2968-8857) /uL Lymph # (Auto) 1700 (9809-5143) /uL [place] # (Auto) 700 (0-900) /uL Eos # (Auto) 200 (0-450) /uL Baso # (Auto) 0 (0-100) /uL Sodium 139 (137-145) mmol/L Potassium 3.9 (3.4-5.1) mmol/L Chloride 108 H (98-107) mmol/L Carbon Dioxide 22 (22-32) mmol/L BUN 15 (9-20) mg/dL Creatinine 0.90 (0.66-1.25) mg/dL Estimated GFR > 60.0 (>60) mL/min BUN/Creatinine Ratio 16.7 (6-22) Glucose 187 H (80-110) mg/dL Calcium 9.5 (8.4-10.2) mg/dL Urine Dip Bedside Urine Glucose Negative Bedside Urine Bilirubin - Negative Bedside Urine Ketone - Negative Urine Specific [place] 1.01 Bedside Urine Occult Blood + Bedside Urine pH 6.0 Bedside Urine Protein +/- 15 Bedside Urine Urobilinogen - Negative Bedside Urine Nitrite - Negative Bedside Urine Leukocytes ++ [address] scan - abdomen/pelvis: Radiologist's Impression: [address] [address] [address] Scan Report Signed Patient: Joaquín Call CMR#: [id number] : 1960Acct:[id number] Age/Sex: 59 / MDate of Service: 06/13/19 Loc: ED Accession Number: [id number] Procedure: CT kidney ureter bladder (KUB) Ordering Provider: Erlin Mckay D.O. PROCEDURE: CT KIDNEY URETER BLADDER (KUB) INDICATIONS: Eval for right-sided stone TECHNIQUE: Noncontrast 5 mm thick sections acquired from the diaphragms to the symphysis. 5 mm thick coronal and sagittal reformats were then performed. For radiation dose reduction, the following was used: automated exposure control, adjustment of mA and/or kV according to patient size. COMPARISON: [facility], CT, CT KIDNEY URETER BLADDER (KUB), 08/18/2018, 17:11. FINDINGS: Image quality: Excellent. Lung bases: Lung bases are clear. Heart size is normal. Coronary artery calcifications. Urinary system: Right kidney: Multiple small nonobstructing stones. Mild to moderate hydronephrosis. Right ureter: Dilated to the distal ureter. There are 2 or 3 stones in the distal ureter, just above the ureterovesical junction. The largest of these stones is the most distal stone, and measures approximately 6 x 7 mm. Left kidney: Small nonobstructing renal stones. No hydronephrosis. Left ureter: Unremarkable. Bladder: Smooth wall, no bladder stones. Large prostate. Other solid organs: Liver is normal in size. Gallbladder is unremarkable. Pancreas is normal in contours. Spleen is normal in size. No adrenal nodules. Peritoneum and bowel: Unenhanced bowel loops demonstrate normal wall thickness and caliber. No free fluid or air. Sigmoid diverticulosis without evidence of diverticulitis. Nodes and vessels: No retroperitoneal or mesenteric adenopathy by size criteria. Aorta and inferior vena cava are normal in caliber. Atherosclerotic calcifications of the aorta. Abdominal wall: No ventral hernias. Pelvis: No free pelvic fluid. No inguinal hernias or adenopathy. Bones: No suspicious bony lesions. No vertebral body compression fractures. IMPRESSION: 1. There are 2 or 3 stones in the distal right ureter, the largest of which is the most inferior, and it measures 6 x 7 mm. 2. Mild to moderate hydronephrosis. 3. Bilateral small nonobstructing renal stones. 4. Enlargement of the prostate. 5. Sigmoid diverticulosis. Dictated by: Grzegorz Arteaga M.D. on 06/13/2019 at 21:21 Approved by: Grzegorz Arteaga M.D. on 06/13/2019 at 21:25 MDM Narrative Medical decision making narrative: Patient has unremarkable kidney function. No signs of urinary tract infection. A CT scan was ordered per his request. I did inform him that he would be for size and location the stone not necessarily for a diagnosis. We did discuss limiting radiation exposure and he expressed understanding of this however still would like a CT scan. This does show several right-sided distal ureteral stones. Patient is currently taking Flomax. Will send home with symptom treatment. He is going to contact his primary provider tomorrow. He was given return precautions. He expressed understanding and agreement plan. Discharge Plan Departure Patient Disposition: Home Clinical Impression: Renal colic Discharge Date/Time: 06/13/19 22:04 Instructions: Kidney Stones -- Adult Activity Restrictions/Additional Instructions: Continue to take the Flomax that you are already taking. Take the nausea medicine and the pain medicine as needed. Contact your primary provider for follow-up. Return to the emergency department for any new or worsening symptoms Prescriptions: New ondansetron HCl [Zofran] 4 mg tablet 4 mg PO Q6H PRN (Reason: nausea and vomiting) Qty: 14 RF: 0 hydrocodone-acetaminophen [Kellogg] 5-325 mg tablet 1 tab PO Q4-6H PRN (Reason: pain) Qty: 14 RF: 0 No Action lisinopril 20 mg Tablet 20 mg PO QAM RF: 0 nitroglycerin 0.4 mg tablet, sublingual 0.4 mg SL Q5-15M PRN (Reason: chest pain) Qty: 14 RF: 0 aspirin 81 mg tablet,chewable 81 mg PO DAILY Qty: 10 RF: 0 atorvastatin 80 mg tablet 80 mg PO DAILY RF: 0 docusate calcium [Stool Softener] 240 mg capsule 240 mg PO DAILY RF: 0 metoprolol succinate 25 mg tablet extended release 24 hr 25 mg PO BID RF: 0 oxycodone 5 mg tablet 5 mg PO Q6H PRN (Reason: pain) Qty: 10 RF: 0 ondansetron 4 mg tablet,disintegrating 4 mg PO Q8H PRN (Reason: nausea and vomiting) Qty: 10 RF: 0 Brilinta 90 mg tablet 90 mg PO BID RF: 0 lisinopril 20 mg tablet 10 mg PO QPM RF: 0 tamsulosin 0.4 mg capsule 0.4 mg PO QPM RF: 0 oxycodone-acetaminophen [Percocet] 5-325 mg tablet 1 tab PO Q6H PRN (Reason: pain) Qty: 12 RF: 0 ondansetron 4 mg tablet,disintegrating 4 mg PO BID-TID PRN (Reason: nausea and vomiting) Qty: 10 RF: 0 Referrals: Daniella Sanchez MD [Primary Care Provider] -
[2019-06-13] MEDS: LIDOCAINE 2% 5.4 ML in SODIUM CHLORIDE 0.9% 50 ML 332.4 ML IV (20:39)
[2019-06-13] MEDS: KETOROLAC 60 MG/2 ML VIAL 30 MG IV (20:39)
[2019-06-13 20:57] LABS: Add Manual Diff / Slide Review NO; Basophils Absolute Auto 0 /uL (0-100); Basophils Percent Auto 0.6 % (0-2); Eosinophils Absolute Auto 200 /uL (0-450); Eosinophils Percent Auto 2.4 % (2-4); Hematocrit 42.4 % (41-53); Hemoglobin 14.3 g/dL (13.5-17.5); Lymphocytes Absolute Auto 1700 /uL (1100-4500); Lymphocytes Percent Auto 22.3 % (25-40); Mean Corpuscular HGB Conc 33.7 % (30-36); Mean Corpuscular Hemoglobin 32.4 PG (26-34); Mean Corpuscular Volume 96.1 fL (80-100); Monocytes Absolute Auto 700 /uL (0-900); Monocytes Percent Auto 9.3 % (3-14); Neutrophils Absolute Auto 4900 /uL (1500-7000); Neutrophils Percent Auto 65.4 % (50-75); Platelet Count 242 X10^3/uL (150-400); Red Blood Cell Count 4.41 X10^6/uL (4.5-5.9); Red Cell Distribution Width 14.4 % (11.6-14.8); White Blood Cell Count 7.5 X10^3/uL (4.5-11.0)
[2019-06-13 21:13] LABS: BUN Creatinine Ratio 16.7 (6-22); Blood Urea Nitrogen 15 mg/dL (9-20); Calcium 9.5 mg/dL (8.4-10.2); Carbon Dioxide 22 mmol/L (22-32); Chloride 108 mmol/L (98-107); Estimated Glomerular Filt Rate > 60.0 mL/min (>60); Glucose 187 mg/dL (80-110); HEMOLYSIS 26 (0-50); Potassium 3.9 mmol/L (3.4-5.1); Sodium 139 mmol/L (137-145)
[2019-06-13 22:04] VITALS: BP 159/80; PULSE 79; RESP 16; O2SAT 98
[2019-06-13] MEDS: ONDANSETRON 4 MG ODT PREPACK 1 BOTTLE MISC (22:05)
[2019-06-13] MEDS: HYDROCODONE/ACET 5/325 PREPACK 1 BOTTLE MISC (22:06)
== END 2019-06-13 22:04 | disposition home or self-care (01) ==
PROVIDERS: Emergency Provider Emergency Medicine; PCP Internal Medicine
DX: N20.0 Calculus of kidney (principal); Z87.442 Personal history of urinary calculi
CPT/HCPCS: 36415; 74176; 80048; 81003; 85025; 96365; 96375; 99284; J1885

== ENCOUNTER → 2019-10-17 09:29 | Outpatient (CLI) | payer OTHER, SELFPAY ==
--- NOTE | 2019-10-17 | DI.CT.S_ITS ---
PROCEDURE: CT ABDOMEN PELVIS WO CON INDICATIONS: KIDNEY STONE TECHNIQUE: Noncontrast 5 mm thick sections acquired from the diaphragms to the symphysis. 5 mm coronal and sagittal reformats were then performed. For radiation dose reduction, the following was used: automated exposure control, adjustment of mA and/or kV according to patient size. COMPARISON: [facility], CT, CT KIDNEY URETER BLADDER (KUB), 06/13/2019, 20:56. FINDINGS: Image quality: Excellent. ABDOMEN: Lung bases: Lung bases are clear. Heart size is normal. Solid organs: Liver is normal in size. Gallbladder is within normal limits. Pancreas is normal in contours. Spleen is normal in size. No adrenal nodules. Kidneys are normal in size, without hydronephrosis. Small bilateral nonobstructing renal calculi are present, as before. Peritoneum and bowel: Unenhanced bowel loops demonstrate normal wall thickness and caliber. No free fluid or air. Normal appendix. Nodes and vessels: No retroperitoneal or mesenteric adenopathy by size criteria. Aorta and inferior vena cava are normal in caliber. Miscellaneous: No ventral hernias. PELVIS: Genitourinary: Bladder wall thickness is normal. Miscellaneous: No inguinal hernias or adenopathy. Bones: No suspicious bony lesions. No vertebral body compression fractures. IMPRESSION: 1. No acute process. 2. No change in nonobstructing bilateral renal calculi. 3. Resolution of previously seen right distal ureteral calculi. Dictated by: Kitty Esteban M.D. on 10/17/2019 at 17:00 Approved by: Kitty Esteban M.D. on 10/17/2019 at 17:02
== END ==
PROVIDERS: PCP Internal Medicine; Referring Provider Internal Medicine; Visit Provider Urology
DX: N20.0 Calculus of kidney (principal)
CPT/HCPCS: 74176

== ENCOUNTER → 2020-11-27 10:14 | Outpatient (CLI) | payer OTHER, SELFPAY ==
--- NOTE | 2020-11-27 | DI.RAD.S_ITS ---
PROCEDURE: XR KUB INDICATIONS: Calculus of kidney TECHNIQUE: One view of the abdomen acquired. COMPARISON: [facility], CT, CT ABDOMEN PELVIS WO CON, 10/17/2019, 9:32. [facility], CR, XR KUB, 09/24/2018, 10:15. FINDINGS: Surgical changes and devices: None. Bowel: Bowel gas pattern is normal. Soft tissues: No new suspicious abdominal calcifications. Visualized solid organ contours appear normal in size. A small left mid renal calculus measuring only approximately 2 mm is present. A vertically oriented calculus in the expected position of the renal pelvis on the right measures approximately 7 mm craniocaudad and 3 mm transverse. This appears to have been present prior CT scanning from 10/17/19 and at that time was not obstructive. No ureteral calculus is seen. Bones: No suspicious bony lesions. IMPRESSION: Bilateral urinary tract stones identified at the collecting system/pelvis of each kidney, but no definite ureteral stone is seen. Dictated by: Rishabh Solares M.D. on 11/27/2020 at 11:54 Approved by: Rishabh Solares M.D. on 11/27/2020 at 11:57
== END ==
PROVIDERS: PCP Internal Medicine; Referring Provider Urology; Visit Provider Urology
DX: N20.0 Calculus of kidney (principal)
CPT/HCPCS: 74018

== ENCOUNTER 2021-03-04 21:43 | Emergency (ER) | payer OTHER, SELFPAY ==
[2021-03-04 22:24] VITALS: BP 166/78; PULSE 98; RESP 20; TEMP 37; O2SAT 97
[2021-03-04 23:21] LABS: Add Manual Diff / Slide Review NO; Basophils Absolute Auto 100 /uL (0-100); Basophils Percent Auto 0.8 % (0-2); Eosinophils Absolute Auto 0 /uL (0-450); Hematocrit 42.3 % (41-53); Hemoglobin 14.6 g/dL (13.5-17.5); Lymphocytes Absolute Auto 600 /uL (1100-4500); Mean Corpuscular HGB Conc 34.4 % (30-36); Mean Corpuscular Hemoglobin 33.2 PG (26-34); Mean Corpuscular Volume 96.4 fL (80-100); Monocytes Absolute Auto 600 /uL (0-900); Monocytes Percent Auto 7.9 % (3-14); Neutrophils Absolute Auto 6200 /uL (1500-7000); Neutrophils Percent Auto 83.3 % (50-75); Platelet Count 189 X10^3/uL (150-400); Red Blood Cell Count 4.39 X10^6/uL (4.5-5.9); Red Cell Distribution Width 13.5 % (11.6-14.8); White Blood Cell Count 7.5 X10^3/uL (4.5-11.0)
[2021-03-04 23:29] LABS: Lactate (Lactic Acid) 0.8 mmol/L (0.7-2.1)
--- NOTE | 2021-03-05 00:31 | ED_ITS ---
HPI - Dental/Oral General Chief complaint: Dental/Oral Stated complaint: mouth infection Time Seen by Provider: 03/04/21 21:47 Source: patient Mode of arrival: Ambulatory Limitations: no limitations History of Present Illness HPI Narrative: 60-year-old male smoker with than extensive dental history presents with a chief complaint of dental pain and some facial swelling. [place] and was given a shot of penicillin and a prescription for Augmentin. He was given return precautions suggesting he presents to the emergency department for any worsening symptoms. He states that he felt chills earlier and had a fever at home and presents for evaluation. He has no ongoing fever, has minimal facial swelling and no difficulty eating or swallowing. He has no chest pain or trouble breathing. He is not dizzy nor weak or lightheaded. He picked up his prescription for Augmentin but did not plan to start taking it until later this morning Related Data Home Medications Medication Instructions Recorded Confirmed lisinopril 20 mg tablet 20 mg PO QAM 11/14/17 02/19/19 ticagrelor 90 mg tablet 90 mg PO BID 08/18/18 02/19/19 atorvastatin 80 mg tablet 80 mg PO DAILY 10/10/18 02/19/19 docusate calcium 240 mg capsule 240 mg PO DAILY 10/10/18 02/19/19 metoprolol succinate 25 mg 25 mg PO BID 10/10/18 02/19/19 tablet,extended release 24 hr lisinopril 20 mg tablet 10 mg PO QPM 02/19/19 02/19/19 tamsulosin 0.4 mg capsule 0.4 mg PO QPM 02/19/19 02/19/19 Previous Rx's Medication Instructions Recorded aspirin 81 mg chewable tablet 81 mg PO DAILY #10 tab 11/14/17 nitroglycerin 0.4 mg sublingual 0.4 mg SL Q5-15M PRN #14 tab 11/14/17 tablet ondansetron 4 mg disintegrating 4 mg PO BID-TID PRN #10 tab 02/19/19 tablet oxycodone-acetaminophen 5 mg-325 1 tab PO Q6H PRN #12 tab 02/19/19 mg tablet (Percocet) ondansetron 4 mg disintegrating 4 mg PO Q8H PRN #10 tab 05/13/19 tablet oxycodone 5 mg tablet 5 mg PO Q6H PRN #10 tab 05/13/19 hydrocodone 5 mg-acetaminophen 325 1 tab PO Q4-6H PRN #14 tab 06/13/19 mg tablet ([place]) ondansetron HCl 4 mg tablet 4 mg PO Q6H PRN #14 tab 06/13/19 (Zofran) Allergies Allergy/AdvReac Type Severity Reaction Status Date / Time No Known Drug Allergies Allergy Verified 10/17/19 12:49 Review of Systems Review of Systems Narrative: GENERAL: See HP HEENT: See HPI RESPIRATORY: Denies dyspnea, cough, wheezing, hemoptysis, sputum. CARDIOVASCULAR: Denies chest pain, palpitations, orthopnea, edema, GASTROINTESTINAL: Denies nausea, vomiting, abdominal pain, diarrhea, constipation, melena. : Denies dysuria, frequency, incontinence, hematuria, urinary retention. MUSCULOSKELETAL: denies weakness, joint pain, or bony pain SKIN: Denies rash, skin lesions, or other NEUROLOGIC: Denies weakness, headache, numbness, change in speech, confusion, seizures, incoordination. PSYCHIATRIC: No concerning psychosocial issues. 12 point review of systems is negative except for those stated above Patient History Medical History CAD (coronary artery disease) DJD (degenerative joint disease), cervical Hypertension Kidney stones Tobacco abuse Surgical History H/O heart artery stent H/O lithotripsy No significant past surgical history Social History Smoking Status: Current some day smoker alcohol intake: current substance use type: does not use Smoking Status: Current some day smoker alcohol intake frequency: 0-2 drinks per day Substance Use Type: does not use Exam Narrative Exam Narrative: GEN: AOx3 and in mild distress EYES: Pupils are equal, round, and reactive to light and accommodation. Extraoccular muscles are intact bilaterally. There is no subconjunctival hemorrhage or exudate. ENT: Very minimal left-sided facial swelling, no erythema, warmth, induration or fluctuance. Widespread poor dentition, no fluctuant mass or drainage noted intraorally. CHEST: Lungs are clear to auscultation bilaterally and free of wheezes, rales, or rhonchi. Heart rate is regular rhythm, there are no murmurs, clicks, rubs, or gallops. There is no chest wall tenderness. ABD: Abdomen is soft and nontender. There is no guarding or rebound. Bowel sounds are normal in all 4 quadrants. There is no mass or organomegaly. EXT: Full painless ROM of all extremities with no loss of sensation or strength. SKIN: Warm, pink, and dry. No erythema or rash Initial Vital Signs Initial Vital Signs: Vital Signs Temperature 98.6 F 03/04/21 22:24 Pulse Rate 98 H 03/04/21 22:24 Respiratory Rate 20 03/04/21 22:24 Blood Pressure 166/78 H 03/04/21 22:24 Pulse Oximetry 97 03/04/21 22:24 Course Course Course Narrative: Patient with very reassuring history and physical exam. We discussed his stable vital signs and normal labs. We talked at length about needing a few doses of his antibiotics before expecting improvement. We talked about return precautions that would indicate a return to the emergency department and he verbalizes his understanding of these precautions. He has had questions answered to his apparent satisfaction Orders Ordered: ED Orders 03/04/21 23:10 CBC Auto Diff [Complete Blood Count AUTO DIFF] Stat Lactate (Lactic Acid) Stat Vital Signs Vital signs: Vital Signs - 8 hr 03/04/21 22:24 03/05/21 00:38 Temperature 98.6 F Pulse Rate 98 H 86 Respiratory Rate 20 17 Blood Pressure 166/78 H 145/79 H Pulse Oximetry 97 97 MDM - Dental/Oral Lab Data Result diagrams: 03/04/21 23:10 Labs: Lab Results 03/04/21 03/04/21 Range/Units 23:10 23:10 WBC 7.5 (4.5-11.0) X10^3/uL RBC 4.39 L (4.5-5.9) X10^6/uL Hgb 14.6 (13.5-17.5) g/dL Hct 42.3 (41-53) % MCV 96.4 (80-100) fL MCH 33.2 (26-34) PG MCHC 34.4 (30-36) % RDW 13.5 (11.6-14.8) % Plt Count 189 (150-400) X10^3/uL Neut % (Auto) 83.3 H (50-75) % Lymph % (Auto) 8.0 L (25-40) % [place] % (Auto) 7.9 (3-14) % Eos % (Auto) 0.0 L (2-4) % Baso % (Auto) 0.8 (0-2) % Neut # (Auto) 6200 (4754-5617) /uL Lymph # (Auto) 600 L (4666-9278) /uL [place] # (Auto) 600 (0-900) /uL Eos # (Auto) 0 (0-450) /uL Baso # (Auto) 100 (0-100) /uL Lactate 0.8 (0.7-2.1) mmol/L Discharge Plan Departure Patient Disposition: Home Clinical Impression: Dental infection Instructions: Tooth Decay, Tooth Abscess Activity Restrictions/Additional Instructions: *You have been diagnosed with [dental infection, very reassuring history and physical exam *What to do: *Please continue to take your regular medications as directed. [ ] New medication prescriptions sent to your pharmacy: [ ] [ ] New medication written as a paper prescription [ x] No new medications given *Please follow up with your primary care provider in 2-3 days, call for an appointment. Let them know you were seen in the Emergency Department and that we ask that you be seen in follow up. We will electronically transmit a record of today's note if your PCP is in our system *If you do not have a primary care provider please contact the [facility] Resource line at [phone]. They will ask some questions about your medical history and help get you set up with a doctor in the community. *Return to Emergency Department if you should have any new, worsening or concerning symptoms, such as [fever greater than 101 F, shaking chills, worsening pain, persistent vomiting or other bothersome symptoms] Prescriptions: No Action lisinopril 20 mg Tablet 20 mg PO QAM RF: 0 nitroglycerin 0.4 mg tablet, sublingual 0.4 mg SL Q5-15M PRN (Reason: chest pain) Qty: 14 RF: 0 aspirin 81 mg tablet,chewable 81 mg PO DAILY Qty: 10 RF: 0 atorvastatin 80 mg tablet 80 mg PO DAILY RF: 0 docusate calcium [Stool Softener] 240 mg capsule 240 mg PO DAILY RF: 0 metoprolol succinate 25 mg tablet extended release 24 hr 25 mg PO BID RF: 0 oxycodone 5 mg tablet 5 mg PO Q6H PRN (Reason: pain) Qty: 10 RF: 0 ondansetron 4 mg tablet,disintegrating 4 mg PO Q8H PRN (Reason: nausea and vomiting) Qty: 10 RF: 0 ondansetron HCl [Zofran] 4 mg tablet 4 mg PO Q6H PRN (Reason: nausea and vomiting) Qty: 14 RF: 0 hydrocodone-acetaminophen [[place]] 5-325 mg tablet 1 tab PO Q4-6H PRN (Reason: pain) Qty: 14 RF: 0 Brilinta 90 mg tablet 90 mg PO BID RF: 0 lisinopril 20 mg tablet 10 mg PO QPM RF: 0 tamsulosin 0.4 mg capsule 0.4 mg PO QPM RF: 0 oxycodone-acetaminophen [Percocet] 5-325 mg tablet 1 tab PO Q6H PRN (Reason: pain) Qty: 12 RF: 0 ondansetron 4 mg tablet,disintegrating 4 mg PO BID-TID PRN (Reason: nausea and vomiting) Qty: 10 RF: 0 Referrals: Charles Huber DMD [Physician] - Dahiana Goode MD [Primary Care Provider] -
[2021-03-05 00:38] VITALS: BP 145/79; PULSE 86; RESP 17; O2SAT 97
== END 2021-03-05 00:40 | disposition home or self-care (01) ==
PROVIDERS: Emergency Provider Emergency Medicine; PCP Internal Medicine
DX: K04.7 Periapical abscess without sinus (principal)
CPT/HCPCS: 83605; 85025; 99281; 99283

== ENCOUNTER 2021-06-10 11:56 | Emergency (ER) | payer OTHER, SELFPAY ==
[2021-06-10 12:32] VITALS: BP 207/95; PULSE 80; RESP 18; TEMP 36.2; O2SAT 97; BMI 25.8
--- NOTE | 2021-06-10 14:36 | ED_ITS ---
HPI - Dental/Oral <Deisy Uribe, [facility] - Last Filed: 06/10/21 14:47> General Chief complaint: Dental/Oral Stated complaint: Thinks he has infection in his jaw Time Seen by Provider: 06/10/21 14:27 Source: patient Mode of arrival: Ambulatory History of Present Illness HPI Narrative: 61-year-old male with history of myocardial infarction on Brilinta, dental infections, kidney stones, and COPD who presents to the emergency department complaining of left jaw pain for 2 days. Patient states he has had a history of dental infections in the past, multiple teeth old. He noticed he has tenderness over his left cheek and chin with tenderness inside his mouth with pressure to the base of his teeth on the left mandible. Patient denies any fever, nausea vomiting, particular tooth pain. He denies any discharge in his mouth denies any redness that he can notice, patient has a kemp. He endorses mild swelling to the left chin and left lower mandible. Related Data Home Medications Medication Instructions Recorded Confirmed lisinopril 20 mg tablet 20 mg PO QAM 11/14/17 02/19/19 ticagrelor 90 mg tablet 90 mg PO BID 08/18/18 02/19/19 atorvastatin 80 mg tablet 80 mg PO DAILY 10/10/18 02/19/19 docusate calcium 240 mg capsule 240 mg PO DAILY 10/10/18 02/19/19 metoprolol succinate 25 mg 25 mg PO BID 10/10/18 02/19/19 tablet,extended release 24 hr lisinopril 20 mg tablet 10 mg PO QPM 02/19/19 02/19/19 tamsulosin 0.4 mg capsule 0.4 mg PO QPM 02/19/19 02/19/19 Previous Rx's Medication Instructions Recorded aspirin 81 mg chewable tablet 81 mg PO DAILY #10 tab 11/14/17 nitroglycerin 0.4 mg sublingual 0.4 mg SL Q5-15M PRN #14 tab 11/14/17 tablet ondansetron 4 mg disintegrating 4 mg PO BID-TID PRN #10 tab 02/19/19 tablet oxycodone-acetaminophen 5 mg-325 1 tab PO Q6H PRN #12 tab 02/19/19 mg tablet (Percocet) ondansetron 4 mg disintegrating 4 mg PO Q8H PRN #10 tab 05/13/19 tablet oxycodone 5 mg tablet 5 mg PO Q6H PRN #10 tab 05/13/19 hydrocodone 5 mg-acetaminophen 325 1 tab PO Q4-6H PRN #14 tab 06/13/19 mg tablet ([place]) ondansetron HCl 4 mg tablet 4 mg PO Q6H PRN #14 tab 06/13/19 (Zofran) clindamycin HCl 150 mg capsule 450 mg PO TID 7 Days #63 cap 06/10/21 oxycodone-acetaminophen 5 mg-325 1 tab PO Q8H PRN #10 tab 06/10/21 mg tablet (Percocet) Allergies Allergy/AdvReac Type Severity Reaction Status Date / Time No Known Drug Allergies Allergy Verified 10/17/19 12:49 Review of Systems <KIMBERLY Jacobo - Last Filed: 06/10/21 14:47> Review of Systems Narrative: General: denies fever, chills, malaise, sweats, fatigue Head/Neck: denies headache, neck pain, dizziness, endorses left jaw pain Eyes: denies visual changes, eye pain Cardio: denies chest pain, palpitations, edema Respiratory: denies dyspnea, cough, orthopnea GI: denies abdominal pain, nausea, vomiting, or diarrhea : denies dysuria, hematuria, urinary retention, frequency or incontinence MSK: denies joint pain, muscle weakness Skin: denies rash, itching, skin lesions or other Neuro: denies numbness, tingling Patient History <KIMBERLY Jacobo - Last Filed: 06/10/21 14:47> Medical History CAD (coronary artery disease) DJD (degenerative joint disease), cervical Hypertension Kidney stones Tobacco abuse Surgical History H/O heart artery stent H/O lithotripsy No significant past surgical history Social History Smoking Status: Current some day smoker alcohol intake: current substance use type: does not use Smoking Status: Current some day smoker alcohol intake frequency: 0-2 drinks per day Substance Use Type: does not use Exam <KIMBERLY Jacobo - Last Filed: 06/10/21 14:47> Narrative Exam Narrative: Independently reviewed vitals signs and nursing notes. General: Cooperative, comfortable, in no acute distress, complaining of 10/10 pain Head/Neck: Normal visual inspection and supple, atraumatic, no JVD or cervical lymphadenopathy. Mild pre-auricular, parotid, and left mandibular lymphadenopathy all less than 1 cm. No palpable abscess with any fluctuance, patient has tenderness over left jaw mucosa without significant erythema or open wound. Uvula midline, No obvious edema, no palpable submental or or pharyngeal abscess. Eyes: Pupils equal round and reactive, EOMI, conjunctiva normal, no scleral icterus or injections Nose: External nose normal, nares patent, no rhinorrhea, without purulent drainage Mouth/Throat: uvula midline, moist mucus membranes Cardio: Regular rate and rhythm, no peripheral edema, warm extremities Respiratory: Normal respiratory effort, able to speak in complete sentences without audible wheezing, stridor, or rales. No retractions. GI: Abdomen soft, non-tender to palpation x4 quadrants, non-distended, no mass es or exquisite tenderness with exam, no flank tenderness MSK: Moves all extremities, neurovascularly intact Skin: Normal capillary refill, no rash Neuro: Normal speech and cognition, normal gait, A&O x3, tone normal, moves all extremities Psych: Mental status is grossly normal, speech is clear, congruent mood, normal affect Initial Vital Signs Initial Vital Signs: Vital Signs Temperature 97.2 F L 06/10/21 12:32 Pulse Rate 80 06/10/21 12:32 Respiratory Rate 18 06/10/21 12:32 Blood Pressure 207/95 H 06/10/21 12:32 Pulse Oximetry 97 06/10/21 12:32 <Juan Bonner DO - Last Filed: 06/14/21 18:46> Initial Vital Signs Initial Vital Signs: Vital Signs Temperature 97.2 F L 06/10/21 12:32 Pulse Rate 80 06/10/21 12:32 Respiratory Rate 18 06/10/21 12:32 Blood Pressure 207/95 H 06/10/21 12:32 Pulse Oximetry 97 06/10/21 12:32 Course <KIMBERLY Jacobo - Last Filed: 06/10/21 14:47> Orders Ordered: Discontinued Medications Clindamycin HCl (Clindamycin 150 Mg Capsule) 450 mg PO NOW ONE Stop: 06/10/21 14:29 Last Admin: 06/10/21 14:59 Dose: 450 mg Documented by: DALE Ketorolac Tromethamine (Ketorolac 30 Mg/Ml Vial) 15 mg IV NOW ONE Stop: 06/10/21 14:53 Last Admin: 06/10/21 14:59 Dose: 15 mg Documented by: DALE Oxycodone/Acetaminophen (Oxycodone/Acetaminophen 5/325 Tablet) 1 tab PO NOW ONE Stop: 06/10/21 14:29 Last Admin: 06/10/21 14:59 Dose: 1 tab Documented by: DALE Vital Signs Vital signs: Vital Signs - 8 hr 06/10/21 12:32 Temperature 97.2 F L Pulse Rate 80 Respiratory Rate 18 Blood Pressure 207/95 H Pulse Oximetry 97 <Juan Bonner DO - Last Filed: 06/14/21 18:46> Orders Ordered: Discontinued Medications Clindamycin HCl (Clindamycin 150 Mg Capsule) 450 mg PO NOW ONE Stop: 06/10/21 14:29 Last Admin: 06/10/21 14:59 Dose: 450 mg Documented by: DALE Ketorolac Tromethamine (Ketorolac 30 Mg/Ml Vial) 15 mg IV NOW ONE Stop: 06/10/21 14:53 Last Admin: 06/10/21 14:59 Dose: 15 mg Documented by: DALE Oxycodone/Acetaminophen (Oxycodone/Acetaminophen 5/325 Tablet) 1 tab PO NOW ONE Stop: 06/10/21 14:29 Last Admin: 06/10/21 14:59 Dose: 1 tab Documented by: DALE Vital Signs Vital signs: Vital Signs - 8 hr 06/10/21 12:32 Temperature 97.2 F L Pulse Rate 80 Respiratory Rate 18 Blood Pressure 207/95 H Pulse Oximetry 97 MDM - Dental/Oral <KIMBERLY Jacobo - Last Filed: 06/10/21 14:47> MDM Narrative Medical decision making narrative: 61-year-old male with history of myocardial infarction on Brilinta, dental ab scesses, multiple teeth removed who presents to the emergency department complaining of left jaw pain with fear for infection for x2 days. Patient denies any fever, chills, swelling or difficulty swallowing. Patient has tenderness over left facial lymph nodes along his left mandible and preauricular, all are less than 1 cm, but at least 3 or enlarged. No obvious dental abscess although patient does have tenderness to left jaw with palpation and mild erythema. Differential diagnosis includes facial cellulitis versus dental abscess versus necrotizing fasciitis mandible malignancy, peritonsillar abscess or Gerry's angina although no signs or symptoms suggesting that, no difficulty swallowing. This could be post herpetic neuralgia but does not appear to be related to a herpetic infection. Due to concern for facial cellulitis, patient was treated with clindamycin x7 days and instructed to follow-up with dentist and to return for any worsening of his symptoms. Patient understands his strict return precautions. Patient is appropriate and amenable to discharge home. Vital signs are stable on repeat examination is unremarkable. Patient has been informed of results. Patient has been given strict return to ER precautions for any new or worsening symptoms. Patient understands to follow up closely with outpatient providers as instructed. Patient understands plan and agrees to discharge home. All questions and concerns answered at this time. Discharge Plan Departure Patient Disposition: Home Clinical Impression: Dental infection, Facial cellulitis Instructions: DI for Cellulitis -- Adult, DI for Dental Pain Activity Restrictions/Additional Instructions: *You have been diagnosed with a dental infection versus facial cellulitis. I have covered you with a strong antibiotic called clindamycin, please take this 3 times a day for the next 7 days. Please follow-up with your primary care provider within the amount of time to see if you are getting better or worse. You may need an extension of this antibiotic, so I would want you to be seen after at least 2 days but still in the same week. Please use Percocet for pain in addition to Tylenol, I hope this is helpful. Please return to the emergency department if you have any worsening of this, develop a fever, if it spreads fast, if you have any difficulty swallowing, or any other concerns. Please remember to take her other medications, this antibiotic will not interfere with your anticoagulant, please stay hydrated to help prevent your kidney stones. *What to do: *Please continue to take your regular medications as directed. [x ] New medication prescriptions sent to your pharmacy: [[facility] ] [ ] New medication written as a paper prescription [ ] No new medications given *Please follow up with your primary care provider in 2-3 days, call for an yulissa ointment. Let them know you were seen in the Emergency Department and that we ask that you be seen in follow up. We will electronically transmit a record of today's note if your PCP is in our system *If you do not have a primary care provider please contact the [facility] Resource line at [phone]. They will ask some questions about your medical history and help get you set up with a doctor in the community. *Return to Emergency Department if you should have any new, worsening or concerning symptoms, such as [fever greater than 101F, chills, worsening pain, persistent vomiting or other bothersome symptoms] Prescriptions: New clindamycin HCl 150 mg capsule 450 mg PO TID 7 Days Qty: 63 0RF oxycodone-acetaminophen [Percocet] 5-325 mg tablet 1 tab PO Q8H PRN (Reason: pain) Qty: 10 0RF No Action lisinopril 20 mg Tablet 20 mg PO QAM 0RF nitroglycerin 0.4 mg tablet, sublingual 0.4 mg SL Q5-15M PRN (Reason: chest pain) Qty: 14 0RF Rx Instructions: until response; do not exceed 3 doses per episode aspirin 81 mg tablet,chewable 81 mg PO DAILY Qty: 10 0RF atorvastatin 80 mg tablet 80 mg PO DAILY 0RF docusate calcium [Stool Softener] 240 mg capsule 240 mg PO DAILY 0RF metoprolol succinate 25 mg tablet extended release 24 hr 25 mg PO BID 0RF oxycodone 5 mg tablet 5 mg PO Q6H PRN (Reason: pain) Qty: 10 0RF ondansetron 4 mg tablet,disintegrating 4 mg PO Q8H PRN (Reason: nausea and vomiting) Qty: 10 0RF ondansetron HCl [Zofran] 4 mg tablet 4 mg PO Q6H PRN (Reason: nausea and vomiting) Qty: 14 0RF hydrocodone-acetaminophen [[place]] 5-325 mg tablet 1 tab PO Q4-6H PRN (Reason: pain) Qty: 14 0RF Brilinta 90 mg tablet 90 mg PO BID 0RF lisinopril 20 mg tablet 10 mg PO QPM 0RF tamsulosin 0.4 mg capsule 0.4 mg PO QPM 0RF oxycodone-acetaminophen [Percocet] 5-325 mg tablet 1 tab PO Q6H PRN (Reason: pain) Qty: 12 0RF Rx Instructions: May cause drowsiness so please take precautions. ondansetron 4 mg tablet,disintegrating 4 mg PO BID-TID PRN (Reason: nausea and vomiting) Qty: 10 0RF Referrals: Dahiana Goode MD [Primary Care Provider] - <Juan Bonner DO - Last Filed: 06/14/21 18:46> Cosign ED Attending Cosizabelaature Attestation: I was immediately available in the department for consultation. This documentation has been reviewed and I agree with assessment and plan. Supervised by Juan Bonner DO
[2021-06-10] MEDS: CLINDAMYCIN 150 MG CAPSULE 450 MG PO (14:59)
[2021-06-10] MEDS: KETOROLAC 30 MG/ML VIAL 15 MG IV (14:59)
[2021-06-10] MEDS: OXYCODONE/ACETAMINOPHEN 5/325 TABLET 1 TAB PO (14:59)
[2021-06-10 15:04] VITALS: BP 186/76; PULSE 75; RESP 16; O2SAT 97
== END 2021-06-10 15:04 | disposition home or self-care (01) ==
PROVIDERS: Emergency Provider Nurse Practitioner Critical Care Medicine; PCP Internal Medicine
DX: K04.7 Periapical abscess without sinus (principal); L03.211 Cellulitis of face
CPT/HCPCS: 96374; 99283; 99284; J1885

== ENCOUNTER 2021-10-08 19:12 | Emergency (ER) | payer OTHER, SELFPAY ==
[2021-10-08] VITALS (10 sets, daily range): BP systolic 144–224; BP diastolic 75–107; PULSE 65–100; RESP 14–31; TEMP 36.7; O2SAT 96–99; BMI 25.0
--- NOTE | 2021-10-08 19:19 | DI.RAD.S_ITS ---
PROCEDURE: XR CHEST 1V INDICATIONS: chest pain TECHNIQUE: One view of the chest was acquired. COMPARISON: None. FINDINGS: Surgical changes and devices: None. Lungs and pleura: Lungs are clear. No pleural effusions or pneumothorax. Mediastinum: Mediastinal contours appear normal. Heart size is normal. Mild aortic atherosclerotic calcifications. Bones and chest wall: No suspicious bony lesions. Overlying soft tissues appear unremarkable. IMPRESSION: No acute cardiopulmonary abnormality Dictated by: Aramis Piña M.D. on 10/08/2021 at 19:46 Approved by: Aramis Piña M.D. on 10/08/2021 at 19:47
[2021-10-08 19:35] LABS: Add Manual Diff / Slide Review NO; Basophils Absolute Auto 100 /uL (0-100); Eosinophils Absolute Auto 200 /uL (0-450); Eosinophils Percent Auto 3.3 % (2-4); Hematocrit 44.3 % (41-53); Hemoglobin 15.3 g/dL (13.5-17.5); Lymphocytes Absolute Auto 1900 /uL (1100-4500); Lymphocytes Percent Auto 30.6 % (25-40); Mean Corpuscular HGB Conc 34.6 % (30-36); Mean Corpuscular Hemoglobin 32.4 PG (26-34); Mean Corpuscular Volume 93.7 fL (80-100); Monocytes Absolute Auto 700 /uL (0-900); Monocytes Percent Auto 10.3 % (3-14); Neutrophils Absolute Auto 3500 /uL (1500-7000); Neutrophils Percent Auto 54.8 % (50-75); Platelet Count 272 X10^3/uL (150-400); Red Blood Cell Count 4.72 X10^6/uL (4.5-5.9); Red Cell Distribution Width 13.5 % (11.6-14.8); White Blood Cell Count 6.3 X10^3/uL (4.5-11.0)
[2021-10-08 19:52] LABS: Alanine Aminotransferase 25 IU/L (<50); Albumin 4.5 g/dL (3.5-5.0); Albumin Globulin Ratio 1.3 (1.0-2.8); Alkaline Phosphatase 80 U/L (38-126); Aspartate Aminotransferase 27 IU/L (17-59); Bilirubin Total 0.4 mg/dL (0.2-1.3); Blood Urea Nitrogen 23 mg/dL (9-20); Calcium 9.1 mg/dL (8.4-10.2); Carbon Dioxide 24 mmol/L (22-32); Chloride 109 mmol/L (98-107); Creatine Kinase 146 U/L (55-170); Estimated Glomerular Filt Rate > 60 mL/min (>60); Globulin 3.4 g/dL (1.7-4.1); Glucose 119 mg/dL (80-110); HEMOLYSIS 20 (0-50); Lipase 121 U/L (23-300); Magnesium 2.1 mg/dL (1.6-2.3); Potassium 4.4 mmol/L (3.4-5.1); Sodium 139 mmol/L (137-145); Total Protein 7.9 g/dL (6.3-8.2)
--- NOTE | 2021-10-08 20:14 | ED.CHESTPAIN ---
HPI - Chest Pain General Chief Complaint: Chest Pain Stated Complaint: Chest Pains,Hx Heart Attack Time Seen by Provider: 10/08/21 19:18 Source: patient Mode of arrival: Ambulatory Limitations: no limitations History of Present Illness HPI narrative: Patient is a 61-year-old male with a known history coronary artery disease. Had a heart attack approximately 3 years ago. Has been following up with cardiology since then. He states that several months ago his cardiology took him off of his medications because he has had no issues in the past 3 years. He has had stents placed. He states that earlier today he started having tingling in his left arm that has now moved up to his left upper arm into the left side of his chest. He does have issues with his cervical spine and has had tingling in his upper extremities in the past however he states that when he had his heart attack he was actually having tingling in his arms and waited too long to come in to be evaluated so he wanted to make sure that his heart was okay. No shortness of breath. No nausea vomiting. Abdominal pain. No headache. No vision changes. No lower extremity swelling. Related Data Home Medications Medication Instructions Recorded Confirmed lisinopril 20 mg tablet 20 mg PO QAM 11/14/17 02/19/19 ticagrelor 90 mg tablet 90 mg PO BID 08/18/18 02/19/19 atorvastatin 80 mg tablet 80 mg PO DAILY 10/10/18 02/19/19 docusate calcium 240 mg capsule 240 mg PO DAILY 10/10/18 02/19/19 metoprolol succinate 25 mg 25 mg PO BID 10/10/18 02/19/19 tablet,extended release 24 hr lisinopril 20 mg tablet 10 mg PO QPM 02/19/19 02/19/19 tamsulosin 0.4 mg capsule 0.4 mg PO QPM 02/19/19 02/19/19 Previous Rx's Medication Instructions Recorded aspirin 81 mg chewable tablet 81 mg PO DAILY #10 tabs 11/14/17 nitroglycerin 0.4 mg sublingual 0.4 mg sublingual Q5-15M PRN chest 11/14/17 tablet pain #14 tabs ondansetron 4 mg disintegrating 4 mg PO BID-TID PRN nausea and 02/19/19 tablet vomiting #10 tabs oxycodone-acetaminophen 5 mg-325 1 tab PO Q6H PRN pain #12 tabs 02/19/ mg tablet (Percocet) ondansetron 4 mg disintegrating 4 mg PO Q8H PRN nausea and 05/13/19 tablet vomiting #10 tabs oxycodone 5 mg tablet 5 mg PO Q6H PRN pain #10 tabs 05/13/19 hydrocodone 5 mg-acetaminophen 325 1 tab PO Q4-6H PRN pain #14 tabs 06/13/19 mg tablet ([place]) ondansetron HCl 4 mg tablet 4 mg PO Q6H PRN nausea and 06/13/19 (Zofran) vomiting #14 tabs oxycodone-acetaminophen 5 mg-325 1 tab PO Q8H PRN pain #10 tabs 06/10/21 mg tablet (Percocet) Allergies Allergy/AdvReac Type Severity Reaction Status Date / Time No Known Drug Allergies Allergy Verified 10/08/21 19:20 Review of Systems Review of Systems ROS Unobtainable: All systems reviewed & are unremarkable except as noted in HPI and below Patient History Medical History CAD (coronary artery disease) DJD (degenerative joint disease), cervical Hypertension Kidney stones Tobacco abuse Surgical History H/O heart artery stent H/O lithotripsy No significant past surgical history Social History Smoking Status: Current some day smoker alcohol intake: current substance use type: does not use Smoking Status: Current some day smoker alcohol intake frequency: 0-2 drinks per day Substance Use Type: does not use Exam Initial Vital Signs Initial Vital Signs: Vital Signs Temperature 98.0 F 10/08/21 19:13 Pulse Rate 90 10/08/21 19:13 Respiratory Rate 14 10/08/21 19:13 Blood Pressure 172/94 H 10/08/21 19:13 Pulse Oximetry 99 10/08/21 19:13 Oxygen Delivery Method 10/08/21 19:13 Const General: cooperative, comfortable and well developed HENTX Head: normal to inspection and normocephalic Resp Effort & Inspection: normal respiratory effort Auscultation: clear to auscultation bilaterally Cardio Rate: regular rate Rhythm: regular rhythm GI Inspection: normal to inspection and non-distended Back/Spine/Pelvis Cervical Spine: No cervical muscular tenderness and No cervical spinal tenderness Skin General: no rashes or lesions noted Neuro Cognition: normal cognition Speech: speech normal Sensory Exam: no sensory deficits noted Extrem General: normal to inspection and capillary refill normal Psych Appearance: grossly normal and well kempt Course Orders Ordered: ED Orders 10/08/21 19:19 XR chest 1V Stat EKG-12 Lead Stat 10/08/21 19:20 Complete Blood Count AUTO DIFF Stat Comprehensive Metabolic Panel Stat Lipase Stat Magnesium Stat Troponin & CK Cardiac Panel Stat 10/08/21 21:10 Troponin & CK Cardiac Panel Stat Discontinued Medications Ketorolac Tromethamine (Ketorolac 30 Mg/Ml Vial) 30 mg IV NOW ONE Stop: 10/08/21 22:18 Last Admin: 10/08/21 22:23 Dose: 30 mg Documented By: AT Vital Signs Vital signs: Vital Signs - 8 hr 10/08/21 19:13 10/08/21 19:16 10/08/21 19:16 Temperature 98.0 F Pulse Rate 90 100 H Respiratory Rate 14 Blood Pressure 172/94 H 224/107 H Pulse Oximetry 99 99 Oxygen Delivery Method Room Air 10/08/21 19:18 10/08/21 19:18 10/08/21 19:30 Temperature Pulse Rate 84 Respiratory Rate 31 H Blood Pressure 172/94 H 169/78 H Pulse Oximetry 98 Oxygen Delivery Method 10/08/21 19:30 10/08/21 20:00 10/08/21 20:00 Temperature Pulse Rate 72 71 Respiratory Rate 17 18 Blood Pressure 176/79 H Pulse Oximetry 96 96 Oxygen Delivery Method 10/08/21 20:30 10/08/21 20:30 10/08/21 21:00 Temperature Pulse Rate 67 Respiratory Rate 18 Blood Pressure 158/80 H 175/85 H Pulse Oximetry 97 Oxygen Delivery Method 10/08/21 21:00 10/08/21 21:10 10/08/21 21:10 Temperature Pulse Rate 66 68 Respiratory Rate 18 20 Blood Pressure 170/81 H Pulse Oximetry 97 98 Oxygen Delivery Method 10/08/21 21:30 10/08/21 21:30 10/08/21 22:00 Temperature Pulse Rate 65 Respiratory Rate 17 Blood Pressure 158/75 H 144/82 H Pulse Oximetry 97 Oxygen Delivery Method 10/08/21 22:00 Temperature Pulse Rate 69 Respiratory Rate 18 Blood Pressure Pulse Oximetry 97 Oxygen Delivery Method MDM - Chest Pain Lab Data Attestation: I reviewed the patient's lab results. Result diagrams: 10/08/21 19:20 10/08/21 19:20 Labs: Lab Results 10/08/21 10/08/21 10/08/21 Range/Units 19:20 19:20 21:10 WBC 6.3 (4.5-11.0) X10^3/uL RBC 4.72 (4.5-5.9) X10^6/uL Hgb 15.3 (13.5-17.5) g/dL Hct 44.3 (41-53) % MCV 93.7 (80-100) fL MCH 32.4 (26-34) PG MCHC 34.6 (30-36) % RDW 13.5 (11.6-14.8) % Plt Count 272 (150-400) X10^3/uL Neut % (Auto) 54.8 (50-75) % Lymph % (Auto) 30.6 (25-40) % [place] % (Auto) 10.3 (3-14) % Eos % (Auto) 3.3 (2-4) % Baso % (Auto) 1.0 (0-2) % Neut # (Auto) 3500 (9508-6943) /uL Lymph # (Auto) 1900 (6455-6721) /uL [place] # (Auto) 700 (0-900) /uL Eos # (Auto) 200 (0-450) /uL Baso # (Auto) 100 (0-100) /uL Sodium 139 (137-145) mmol/L Potassium 4.4 (3.4-5.1) mmol/L Chloride 109 H (98-107) mmol/L Carbon Dioxide 24 (22-32) mmol/L BUN 23 H (9-20) mg/dL Creatinine 0.96 (0.66-1.25) mg/dL Estimated GFR > 60 (>60) mL/min BUN/Creatinine Ratio 24.0 H (6-22) Glucose 119 H (80-110) mg/dL Calcium 9.1 (8.4-10.2) mg/dL Magnesium 2.1 (1.6-2.3) mg/dL Total Bilirubin 0.4 (0.2-1.3) mg/dL AST 27 (17-59) IU/L ALT 25 (<50) IU/L Alkaline Phosphatase 80 (38-126) U/L Total Creatine Kinase 146 141 (55-170) U/L CK-MB (CK-2) 1.57 1.74 (<2.37) ng/mL CK-MB (CK-2) Rel Index 1.1 L 1.2 L (1.5-5.0) % Troponin I < 0.012 < 0.012 (0.01-0.034) ng/mL Total Protein 7.9 (6.3-8.2) g/dL Albumin 4.5 (3.5-5.0) g/dL Globulin 3.4 (1.7-4.1) g/dL Albumin/Globulin Ratio 1.3 (1.0-2.8) Lipase 121 (23-300) U/L Imaging Data Chest x-ray: Radiologist's Impression: [place] [address] XRay Report Signed Patient: Joaquín Call MR#: [id number] : 1960 Acct:[id number] Age/Sex: 61 / M Date of Service: 10/08/21 Loc: Accession Number: [id number] ?? Procedure: XR chest 1V Ordering Provider: Erlin Mckay D.O. PROCEDURE:? XR CHEST 1V ? INDICATIONS:? chest pain ? TECHNIQUE:? One view of the chest was acquired.? ? COMPARISON:? None. ? FINDINGS:? ? Surgical changes and devices:? None.? ? Lungs and pleura:? Lungs are clear.? No pleural effusions or pneumothorax.? ? Mediastinum:? Mediastinal contours appear normal.? Heart size is normal.? Mild aortic atherosclerotic calcifications. ? Bones and chest wall:? No suspicious bony lesions.? Overlying soft tissues appear unremarkable.? ? IMPRESSION:? No acute cardiopulmonary abnormality ? ? Dictated by: Aramis Piña M.D. on 10/08/2021 at 19:46 ? ? Approved by: Aramis Piña M.D. on 10/08/2021 at 19:47?? ECG Data Attestation: I personally reviewed and interpreted this ECG as follows: Interpretation: Sinus rhythm Ventricular rate is 79 Left axis deviation Normal QRS Artifact noted in V3 No ST T wave changes MDM Narrative Medical decision making narrative: Patient has a unremarkable EKG. No ST T wave changes. His chest x-ray is unremarkable. Has had 2- troponins with both of them being greater than 6 hours after the onset of his discomfort. He has had issues with cervical spine radiculopathy in the past. Had a discussion with him regarding his risks. 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 He was given return precautions and follow-up instructions. He expressed understanding and agreement. Discharge Plan Departure Patient Disposition: Home Clinical Impression: Arm pain, left, Atypical chest pain Instructions: DI for Atypical Chest Pain Activity Restrictions/Additional Instructions: I do recommend that you continue to take all of your medications as directed. 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 Prescriptions: No Action lisinopril 20 mg Tablet 20 mg PO QAM nitroglycerin 0.4 mg tablet, sublingual 0.4 mg SL Q5-15M PRN (Reason: chest pain) Qty: 14 0RF Rx Instructions: until response; do not exceed 3 doses per episode aspirin 81 mg tablet,chewable 81 mg PO DAILY Qty: 10 0RF atorvastatin 80 mg tablet 80 mg PO DAILY docusate calcium [Stool Softener] 240 mg capsule 240 mg PO DAILY metoprolol succinate 25 mg tablet extended release 24 hr 25 mg PO BID oxycodone 5 mg tablet 5 mg PO Q6H PRN (Reason: pain) Qty: 10 0RF ondansetron 4 mg tablet,disintegrating 4 mg PO Q8H PRN (Reason: nausea and vomiting) Qty: 10 0RF ondansetron HCl [Zofran] 4 mg tablet 4 mg PO Q6H PRN (Reason: nausea and vomiting) Qty: 14 0RF hydrocodone-acetaminophen [[place]] 5-325 mg tablet 1 tab PO Q4-6H PRN (Reason: pain) Qty: 14 0RF oxycodone-acetaminophen [Percocet] 5-325 mg tablet 1 tab PO Q8H PRN (Reason: pain) Qty: 10 0RF Brilinta 90 mg tablet 90 mg PO BID lisinopril 20 mg tablet 10 mg PO QPM tamsulosin 0.4 mg capsule 0.4 mg PO QPM oxycodone-acetaminophen [Percocet] 5-325 mg tablet 1 tab PO Q6H PRN (Reason: pain) Qty: 12 0RF Rx Instructions: May cause drowsiness so please take precautions. ondansetron 4 mg tablet,disintegrating 4 mg PO BID-TID PRN (Reason: nausea and vomiting) Qty: 10 0RF Referrals: Dahiana Goode MD [Primary Care Provider] - Visit Report Forms: Patient Portal/API
[2021-10-08 20:34] LABS: CKMB % Relative Index 1.1 % (1.5-5.0); Creatine Kinase MB 1.57 ng/mL (<2.37)
[2021-10-08 20:35] LABS: Troponin I < 0.012 ng/mL (0.01-0.034)
[2021-10-08 22:07] LABS: CKMB % Relative Index 1.2 % (1.5-5.0); Creatine Kinase 141 U/L (55-170); Creatine Kinase MB 1.74 ng/mL (<2.37); Troponin I < 0.012 ng/mL (0.01-0.034)
[2021-10-08] MEDS: KETOROLAC 30 MG/ML VIAL IV (22:23)
== END 2021-10-08 22:30 | disposition home or self-care (01) ==
PROVIDERS: Emergency Provider Emergency Medicine; PCP Internal Medicine
DX: R07.89 Other chest pain (principal); M79.602 Pain in left arm
CPT/HCPCS: 36415; 71045; 80053; 82550; 82553; 83690; 83735; 84484; 85025; 93005; 93010; 96374; 99284; J1885

== ENCOUNTER 2023-06-29 13:29 | Emergency (ER) | payer OTHER, SELFPAY ==
[2023-06-29] VITALS (8 sets, daily range): BP systolic 150–213; BP diastolic 81–97; PULSE 67–89; RESP 18; TEMP 36.8; O2SAT 96–99; BMI 25.0
[2023-06-29 14:06] LABS: Urine Volume 10mL (spun)
[2023-06-29 14:10] LABS: Add Manual Diff / Slide Review NO; Basophils Absolute Auto 0 /uL (0-100); Basophils Percent Auto 0.4 % (0-2); Eosinophils Absolute Auto 100 /uL (0-450); Eosinophils Percent Auto 1.2 % (2-4); Hematocrit 47.6 % (41-53); Hemoglobin 16.5 g/dL (13.5-17.5); Lymphocytes Absolute Auto 1600 /uL (1100-4500); Lymphocytes Percent Auto 20.9 % (25-40); Mean Corpuscular HGB Conc 34.7 % (30-36); Mean Corpuscular Hemoglobin 34.7 PG (26-34); Mean Corpuscular Volume 99.9 fL (80-100); Monocytes Absolute Auto 700 /uL (0-900); Monocytes Percent Auto 9.4 % (3-14); Neutrophils Absolute Auto 5300 /uL (1500-7000); Neutrophils Percent Auto 68.1 % (50-75); Platelet Count 223 X10^3/uL (150-400); Red Blood Cell Count 4.76 X10^6/uL (4.5-5.9); Red Cell Distribution Width 13.2 % (11.6-14.8); White Blood Cell Count 7.8 X10^3/uL (4.5-11.0)
[2023-06-29 14:14] LABS: Bacteria Urine Few (2-10); RBC Urine 1-5/HPF (0-5/HPF); Squamous Epithelial Cell Urine 0-1 /HPF (0-5/HPF); WBC Urine 5-10/HPF (0-5/HPF)
[2023-06-29 14:15] LABS: Culture Indicated Urine Specimen Cultured
[2023-06-29 14:21] LABS: Alanine Aminotransferase 34 IU/L (<50); Albumin 4.5 g/dL (3.5-5.0); Albumin Globulin Ratio 1.3 (1.0-2.8); Alkaline Phosphatase 97 U/L (38-126); Aspartate Aminotransferase 28 IU/L (17-59); BUN Creatinine Ratio 16.7 (6-22); Bilirubin Total 0.6 mg/dL (0.2-1.3); Blood Urea Nitrogen 16 mg/dL (9-20); Calcium 10.2 mg/dL (8.4-10.2); Carbon Dioxide 26 mmol/L (22-32); Chloride 107 mmol/L (98-107); Estimated Glomerular Filt Rate > 60 mL/min (>60); Globulin 3.6 g/dL (1.7-4.1); Glucose 149 mg/dL (80-110); HEMOLYSIS < 15 (0-50); Potassium 4.3 mmol/L (3.4-5.1); Sodium 140 mmol/L (137-145); Total Protein 8.1 g/dL (6.3-8.2)
--- NOTE | 2023-06-29 14:36 | ED_ITS ---
HPI - Male Genitourinary <Jeanne Doyle PA-C - Last Filed: 06/29/23 16:24> General Chief complaint: Urogenital-Male Stated complaint: L flank pain, poss kidney stone Time Seen by Provider: 06/29/23 14:34 Source: patient Mode of arrival: Ambulatory History of Present Illness HPI Narrative: A 63-year-old male with a history of hypertension, ureterolithiasis, COPD, 40 pack-year smoking history, presents with concern for possible kidney stone. Patient states that early this morning around 8:00 a.m. he started noticing some left flank twinging pain which has gradually worsened throughout the morning and become severe. He describes the pain as 6/10 presently and coming in waves. He states it does feel like previous kidney stones. He states he has had over 20 diagnosed kidney stones and has had urologic intervention 3 times for them. He took Tylenol this morning and took three 200 mg ibuprofen at around 11:00 a.m. but otherwise has not taken anything for pain. He states he has not had any changes in urinary output although he has noticed his urine is a little darker this morning. He states for the past 2 years he has occasional episodes where he has looser stools followed by some constipation but states there is no rhyme or reason to this and it is only occasional and has not been worsening. Denies nausea, vomiting, abdominal pain, diarrhea, constipation, blood in his stool, chest pain or any other symptoms. Patient endorses that he had had a heart attack 3-4 years ago and after this was seen by urology and found he had no stones left at that time despite have numerous stones in his kidneys prior. He states he has not had a stone for quite some time but this does feel like stones he has had in the past. Denies any other complaints or concerns, does endorse he had a cold about 3 weeks ago but this resolved. Related Data Home Medications Medication Instructions Recorded Confirmed lisinopril 20 mg tablet 20 mg PO QAM 11/14/17 02/19/19 ticagrelor 90 mg tablet 90 mg PO BID 08/18/18 02/19/19 atorvastatin 80 mg tablet 80 mg PO DAILY 10/10/18 02/19/19 docusate calcium 240 mg capsule 240 mg PO DAILY 10/10/18 02/19/19 metoprolol succinate 25 mg 25 mg PO BID 10/10/18 02/19/19 tablet,extended release 24 hr lisinopril 20 mg tablet 10 mg PO QPM 02/19/19 02/19/19 tamsulosin 0.4 mg capsule 0.4 mg PO QPM 02/19/19 02/19/19 Previous Rx's Medication Instructions Recorded aspirin 81 mg chewable tablet 81 mg PO DAILY #10 tabs 11/14/17 nitroglycerin 0.4 mg sublingual 0.4 mg sublingual Q5-15M PRN chest 11/14/17 tablet pain #14 tabs ondansetron 4 mg disintegrating 4 mg PO BID-TID PRN nausea and 02/19/19 tablet vomiting #10 tabs oxycodone-acetaminophen 5 mg-325 1 tab PO Q6H PRN pain #12 tabs 02/19/19 mg tablet (Percocet) ondansetron 4 mg disintegrating 4 mg PO Q8H PRN nausea and 05/13/19 tablet vomiting #10 tabs oxycodone 5 mg tablet 5 mg PO Q6H PRN pain #10 tabs 05/13/19 hydrocodone 5 mg-acetaminophen 325 1 tab PO Q4-6H PRN pain #14 tabs 06/13/19 mg tablet (Naoma) ondansetron HCl 4 mg tablet 4 mg PO Q6H PRN nausea and 06/13/19 (Zofran) vomiting #14 tabs oxycodone-acetaminophen 5 mg-325 1 tab PO Q8H PRN pain #10 tabs 06/10/21 mg tablet (Percocet) nitrofurantoin 100 mg PO BID 7 days #14 caps 06/29/23 monohydrate/macrocrystals 100 mg capsule (Macrobid) Allergies Allergy/AdvReac Type Severity Reaction Status Date / Time No Known Drug Allergies Allergy Verified 10/08/21 19:20 Review of Systems <Jeanne Doyle PA-C - Last Filed: 06/29/23 16:24> Review of Systems Narrative: See HPI Patient History <Jeanne Doyle PA-C - Last Filed: 06/29/23 16:24> Medical History CAD (coronary artery disease) DJD (degenerative joint disease), cervical Hypertension Kidney stones Tobacco abuse Surgical History H/O lithotripsy H/O heart artery stent No significant past surgical history Social History Smoking Status: Current some day smoker alcohol intake: current substance use type: does not use Smoking Status: Current some day smoker alcohol intake frequency: 0-2 drinks per day Substance Use Type: does not use Exam <Jeanne Doyle PA-C - Last Filed: 06/29/23 16:24> Narrative Exam Narrative: GENERAL: 63 year old patient appears stated age. Well-developed patient, in mild distress. HEAD: Atraumatic. Normocephalic. EYES: Pupils equal round and reactive. Extraocular motions intact. No scleral icterus. No injection or drainage. ENT: Nose without bleeding, purulent drainage. Airway patent. NECK: Trachea midline. CARDIOVASCULAR: Regular rate and rhythm without murmurs, gallops, or rubs. RESPIRATORY: Clear to auscultation. Breath sounds equal bilaterally. No wheezes, rales, or rhonchi. GASTROINTESTINAL: Abdomen soft, protruberant, there is mild tenderness over the left lower quadrant, there is no McBurney's point tenderness, negative Rovsing, no right upper quadrant tenderness. Abdomen otherwise non-tender, nondistended. EXTREMITIES: No edema or joint tenderness. Strong and equal pedal pulses posterior tibialis. BACK: Nontender without deformity or crepitance. There is tenderness over the left low flank with increased pain with percussion. Mild CVA tenderness. . NEURO: AOx3. SKIN: No rash or erythema of visible areas Initial Vital Signs Initial Vital Signs: Vital Signs Temperature 98.3 F 06/29/23 13:35 Pulse Rate 82 06/29/23 13:35 Respiratory Rate 18 06/29/23 13:35 Blood Pressure 213/95 H 06/29/23 13:35 Pulse Oximetry 99 06/29/23 13:35 Oxygen Delivery Method Room Air 06/29/23 13:35 <Jackson Saba MD - Last Filed: 06/29/23 16:41> Initial Vital Signs Initial Vital Signs: Vital Signs Temperature 98.3 F 06/29/23 13:35 Pulse Rate 82 06/29/23 13:35 Respiratory Rate 18 06/29/23 13:35 Blood Pressure 213/95 H 06/29/23 13:35 Pulse Oximetry 99 06/29/23 13:35 Oxygen Delivery Method Room Air 06/29/23 13:35 Course <Jeanne Doyle PA-C - Last Filed: 06/29/23 16:24> Course Course Narrative: Did discuss this pt with Dr Saba, including imaging, exam, labs and plan for discharge. In agreement with plan. 1540 Orders Ordered: ED Orders 06/29/23 13:40 Ictotest Urine Stat Urine Culture Stat Urine Microscopic Stat 06/29/23 13:58 CMP [Comprehensive Metabolic Panel] Stat Complete Blood Count AUTO DIFF Stat 06/29/23 14:34 CT kidney ureter bladder (KUB) Stat Discontinued Medications Sodium Chloride (Normal Saline 0.9%) 500 mls @ 1,000 mls/hr IV BOLUS PRN PRN Reason: Fluid replacement Last Infusion: 06/29/23 15:15 Dose: Infused Documented By: Admin: 06/29/23 14:44 Dose: 1,000 mls/hr Documented By: ARIS Ketorolac Tromethamine (Ketorolac 30 Mg/Ml Vial) 15 mg IV NOW ONE Stop: 06/29/23 14:35 Last Admin: 06/29/23 14:43 Dose: 15 mg Documented By: ARIS Ondansetron HCl (Ondansetron 4 Mg/2 Ml Inj) 4 mg IV NOW PRN PRN Reason: Nausea And Vomiting Ondansetron HCl (Ondansetron 4 Mg Odt) 4 mg SL NOW PRN PRN Reason: Nausea And Vomiting Reevaluation(s) Reevaluation #1: Re-evaluated the patient now about 30+ minutes after Toradol he stating his flank pain is down to where it feels almost like a little uncomfortable as if he slept wrong. Did check blood pressure on the left as he has been hypertensive and wanted to compare sides. Left-sided reading was elevated at 187 however patient was moving his hands around and talking during the reading will reassess in a few minutes. 1521 Pt is similarly hypertensive bilaterally. 1543 Vital Signs Vital signs: Vital Signs - 8 hr 06/29/23 13:35 06/29/23 14:03 06/29/23 14:03 Temperature 98.3 F Pulse Rate 82 77 Respiratory Rate 18 Blood Pressure 213/95 H 189/91 H Pulse Oximetry 99 98 Oxygen Delivery Method Room Air 06/29/23 14:30 06/29/23 14:30 06/29/23 14:45 Temperature Pulse Rate 73 Respiratory Rate Blood Pressure 197/97 H 180/91 H Pulse Oximetry 98 Oxygen Delivery Method 06/29/23 14:45 06/29/23 15:00 06/29/23 15:00 Temperature Pulse Rate 89 67 Respiratory Rate Blood Pressure 167/84 H Pulse Oximetry 98 98 Oxygen Delivery Method 06/29/23 15:17 06/29/23 15:17 06/29/23 15:30 Temperature Pulse Rate 72 71 Respiratory Rate Blood Pressure 187/94 H Pulse Oximetry 99 97 Oxygen Delivery Method 06/29/23 15:30 06/29/23 16:00 06/29/23 16:00 Temperature Pulse Rate 77 Respiratory Rate Blood Pressure 179/91 H 150/81 H Pulse Oximetry 96 Oxygen Delivery Method <Jackson Saba MD - Last Filed: 06/29/23 16:41> Orders Ordered: ED Orders 06/29/23 13:40 Ictotest Urine Stat Urine Culture Stat Urine Microscopic Stat 06/29/23 13:58 CMP [Comprehensive Metabolic Panel] Stat Complete Blood Count AUTO DIFF Stat 06/29/23 14:34 CT kidney ureter bladder (KUB) Stat Discontinued Medications Sodium Chloride (Normal Saline 0.9%) 500 mls @ 1,000 mls/hr IV BOLUS PRN PRN Reason: Fluid replacement Last Infusion: 06/29/23 15:15 Dose: Infused Documented By: Admin: 06/29/23 14:44 Dose: 1,000 mls/hr Documented By: ARIS Ketorolac Tromethamine (Ketorolac 30 Mg/Ml Vial) 15 mg IV NOW ONE Stop: 06/29/23 14:35 Last Admin: 06/29/23 14:43 Dose: 15 mg Documented By: ARIS Ondansetron HCl (Ondansetron 4 Mg/2 Ml Inj) 4 mg IV NOW PRN PRN Reason: Nausea And Vomiting Ondansetron HCl (Ondansetron 4 Mg Odt) 4 mg SL NOW PRN PRN Reason: Nausea And Vomiting Vital Signs Vital signs: Vital Signs - 8 hr 03/06/24 13:35 06/29/23 14:03 06/29/23 14:03 Temperature 98.3 F Pulse Rate 82 77 Respiratory Rate 18 Blood Pressure 213/95 H 189/91 H Pulse Oximetry 99 98 Oxygen Delivery Method Room Air 06/29/23 14:30 06/29/23 14:30 06/29/23 14:45 Temperature Pulse Rate 73 Respiratory Rate Blood Pressure 197/97 H 180/91 H Pulse Oximetry 98 Oxygen Delivery Method 06/29/23 14:45 06/29/23 15:00 06/29/23 15:00 Temperature Pulse Rate 89 67 Respiratory Rate Blood Pressure 167/84 H Pulse Oximetry 98 98 Oxygen Delivery Method 06/29/23 15:17 06/29/23 15:17 06/29/23 15:30 Temperature Pulse Rate 72 71 Respiratory Rate Blood Pressure 187/94 H Pulse Oximetry 99 97 Oxygen Delivery Method 06/29/23 15:30 06/29/23 16:00 06/29/23 16:00 Temperature Pulse Rate 77 Respiratory Rate Blood Pressure 179/91 H 150/81 H Pulse Oximetry 96 Oxygen Delivery Method MDM - Male Genitourinary <Jeanne Doyle PA-C - Last Filed: 06/29/23 16:24> Differential Diagnosis Differential diagnosis: Likely urinary tract infection, urethritis and other (Ureterolithiasis, nephrolithiasis) Medical Records Attestation: I reviewed the patient's medical records. Lab Data Attestation: I reviewed the patient's lab results. 06/29/23 13:58 06/29/23 13:58 Labs: Lab Results 06/29/23 06/29/23 Range/Units 13:40 13:58 WBC 7.8 (4.5-11.0) X10^3/uL RBC 4.76 (4.5-5.9) X10^6/uL Hgb 16.5 (13.5-17.5) g/dL Hct 47.6 (41-53) % MCV 99.9 (80-100) fL MCH 34.7 H (26-34) PG MCHC 34.7 (30-36) % RDW 13.2 (11.6-14.8) % Plt Count 223 (150-400) X10^3/uL Neut % (Auto) 68.1 (50-75) % Lymph % (Auto) 20.9 L (25-40) % [place] % (Auto) 9.4 (3-14) % Eos % (Auto) 1.2 L (2-4) % Baso % (Auto) 0.4 (0-2) % Neut # (Auto) 5300 (5399-3987) /uL Lymph # (Auto) 1600 (9049-0703) /uL [place] # (Auto) 700 (0-900) /uL Eos # (Auto) 100 (0-450) /uL Baso # (Auto) 0 (0-100) /uL Sodium 140 (137-145) mmol/L Potassium 4.3 (3.4-5.1) mmol/L Chloride 107 (98-107) mmol/L Carbon Dioxide 26 (22-32) mmol/L BUN 16 (9-20) mg/dL Creatinine 0.96 (0.66-1.25) mg/dL Estimated GFR > 60 (>60) mL/min BUN/Creatinine Ratio 16.7 (6-22) Glucose 149 H (80-110) mg/dL Calcium 10.2 (8.4-10.2) mg/dL Total Bilirubin 0.6 (0.2-1.3) mg/dL AST 28 (17-59) IU/L ALT 34 (<50) IU/L Alkaline Phosphatase 97 (38-126) U/L Total Protein 8.1 (6.3-8.2) g/dL Albumin 4.5 (3.5-5.0) g/dL Globulin 3.6 (1.7-4.1) g/dL Albumin/Globulin Ratio 1.3 (1.0-2.8) Ur Bilirubin Confirm TNP Urine RBC 1-5/hpf D (0-5/HPF) Urine WBC 5-10/hpf H (0-5/HPF) Ur Squamous Epith Cells 0-1 /hpf (0-5/HPF) Amorphous Sediment Chainstitch Pants Outseamer Urine Bacteria Few (2-10) H (None) Ur Culture Indicated? Specimen cultured Vol Urine Centrifuged 10ml (spun) Urine Dip Bedside Urine Glucose Negative Bedside Urine Bilirubin + 1 Bedside Urine Ketone - Negative Urine Specific [place] 1.030 Bedside Urine Occult Blood - Negative Bedside Urine pH 6 Bedside Urine Protein + 30 Bedside Urine Urobilinogen - Negative Bedside Urine Nitrite - Negative Bedside Urine Leukocytes +/- [address] KUB: My Impression: Agree with Radiology interpretation Radiologist's Impression: [address] [address] [address] Scan Report Signed Patient: Joaquín aCll MR#: [id number] : 1960 Acct:[id number] Age/Sex: 63 / M Date of Service: 06/29/23 Loc: ED Accession Number: [id number] Procedure: CT kidney ureter bladder (KUB) Ordering Provider: Jeanne Doyle P.A-C PROCEDURE: CT KIDNEY URETER BLADDER (KUB) INDICATIONS: left flank pain in waves hx stones TECHNIQUE: Axial sections were acquired from the lung bases to the pubic symphysis. Coronal and sagittal reformats were performed. For radiation dose reduction, the following was used: automated exposure control, adjustment of mA and/or kV according to patient size. COMPARISON: Outside Film, CT, CT KUB, 09/04/2015, 13:20. FINDINGS: Image quality: Diagnostic. Lower Chest: No significant findings. URINARY: Multiple nonobstructing bilateral renal calcifications are present measuring 5 mm or less in diameter. No hydronephrosis. No ureteral dilatation or calcification. Bladder: Decompressed. ABDOMEN: Liver: No contour-deforming solid mass. Gallbladder: No radiopaque gallstones or wall thickening. Biliary ducts: No biliary dilation. Pancreas: No ductal dilation. Spleen: Size is within normal limits. Adrenal Glands: No adrenal nodules. Stomach and Bowel: Normal colonic caliber, without significant wall thickening. Appendix is normal. Peritoneum: No abnormal intraperitoneal fluid. No free air. Ventral Wall: No hernia. Abdominal Nodes: No enlarged retroperitoneal or mesenteric lymph nodes. Vessels: Aorta and inferior vena cava are normal in size. PELVIS: Pelvic Organs: Unremarkable. Pelvic Nodes: Unremarkable. Miscellaneous: No inguinal hernias are seen. Bones: Unremarkable. IMPRESSION: 1. Nonobstructing bilateral nephrolithiasis. 2. Normal appendix. 3. No evidence of urinary tract obstruction. Dictated by: Kitty Esteban M.D. on 06/29/2023 at 14:57 Approved by: Kitty Esteban M.D. on 06/29/2023 at 15:02 [facility] [place] Narrative Medical decision making narrative: This is a mildly uncomfortable appearing 63-year-old male with history of ureterolithiasis, COPD, 40 pack-year smoking history and hypertension who presents with concern for possible left-sided kidney stone with intermittent left low flank pain since this morning. On exam patient is rocking slightly in the bed tolerating his pain well but clearly uncomfortable and having difficulty getting away from it. He does have flank tenderness and some mild left lower quadrant abdominal tenderness on exam which he states radiates from the back to the front. Patient's labs are generally unremarkable however he does have some blood in urine present in his bacteria. History and exam are most suspicious for ureterolithiasis and CT KUB is ordered for further evaluation. Patient receives Toradol for pain, zofran and fluid bolus also ordered. Toradol does initially improve patient's pain. CT returns without evidence of secondary findings of ureterolithiasis or any obstructing stone. He does have nephrolithiasis with multiple 5 mm or smaller stones bilaterally. Patient was hypertensive during his stay today in the emergency department, did review his chart and note that he has been hypertensive to with similar numbers in almost every ED visit over the past 4-5 years here. Discussed this with the patient and he states that his blood pressures are not this elevated at home, he does take his blood pressure medications and notes he is typically in pain when he comes into the ER and feels this likely explains this. Given location of patient's pain low left flank less likely to be vascular although this is also considered. Do provide patient with strict return precautions should he have new worsening or persistent pain or new symptoms to seek re-evaluation. Did discuss the patient with the attending physician prior to discharge. We will defer Flomax given no evidence of ureteral obstruction or recent obstruction. Based on patient's symptoms and the fact that he has some bacteria and blood present in his urine will initiate antibiotics today as there is some concern for early UTI. Reviewed patient's previous urine cultures and he is most recently had Enterococcus faecalis sensitive to Macrobid. This is prescribed today as well. Urine was sent for culture. Patient advised to take Tylenol ibuprofen for pain, antibiotics for suspected UTI. Return precautions provided, follow-up plan discussed, all questions answered. Pt driving himself home and do not treat with opioid pain meds today due to this. <Jackson Saba MD - Last Filed: 06/29/23 16:41> Lab Data Labs: Lab Results 06/29/23 06/29/23 Range/Units 13:40 13:58 WBC 7.8 (4.5-11.0) X10^3/uL RBC 4.76 (4.5-5.9) X10^6/uL Hgb 16.5 (13.5-17.5) g/dL Hct 47.6 (41-53) % MCV 99.9 (80-100) fL MCH 34.7 H (26-34) PG MCHC 34.7 (30-36) % RDW 13.2 (11.6-14.8) % Plt Count 223 (150-400) X10^3/uL Neut % (Auto) 68.1 (50-75) % Lymph % (Auto) 20.9 L (25-40) % [place] % (Auto) 9.4 (3-14) % Eos % (Auto) 1.2 L (2-4) % Baso % (Auto) 0.4 (0-2) % Neut # (Auto) 5300 (9982-8850) /uL Lymph # (Auto) 1600 (6941-7513) /uL [place] # (Auto) 700 (0-900) /uL Eos # (Auto) 100 (0-450) /uL Baso # (Auto) 0 (0-100) /uL Sodium 140 (137-145) mmol/L Potassium 4.3 (3.4-5.1) mmol/L Chloride 107 (98-107) mmol/L Carbon Dioxide 26 (22-32) mmol/L BUN 16 (9-20) mg/dL Creatinine 0.96 (0.66-1.25) mg/dL Estimated GFR > 60 (>60) mL/min BUN/Creatinine Ratio 16.7 (6-22) Glucose 149 H (80-110) mg/dL Calcium 10.2 (8.4-10.2) mg/dL Total Bilirubin 0.6 (0.2-1.3) mg/dL AST 28 (17-59) IU/L ALT 34 (<50) IU/L Alkaline Phosphatase 97 (38-126) U/L Total Protein 8.1 (6.3-8.2) g/dL Albumin 4.5 (3.5-5.0) g/dL Globulin 3.6 (1.7-4.1) g/dL Albumin/Globulin Ratio 1.3 (1.0-2.8) Ur Bilirubin Confirm TNP Urine RBC 1-5/hpf D (0-5/HPF) Urine WBC 5-10/hpf H (0-5/HPF) Ur Squamous Epith Cells 0-1 /hpf (0-5/HPF) Amorphous Sediment Chainstitch Pants Outseamer Urine Bacteria Few (2-10) H (None) Ur Culture Indicated? Specimen cultured Vol Urine Centrifuged 10ml (spun) Urine Dip Bedside Urine Glucose Negative Bedside Urine Bilirubin + 1 Bedside Urine Ketone - Negative Urine Specific [place] 1.030 Bedside Urine Occult Blood - Negative Bedside Urine pH 6 Bedside Urine Protein + 30 Bedside Urine Urobilinogen - Negative Bedside Urine Nitrite - Negative Bedside Urine Leukocytes +/- 15 Esterase Discharge Plan Departure Patient Disposition: Home Clinical Impression: Renal colic, Nephrolithiasis, Acute UTI Activity Restrictions/Additional Instructions: *You have been diagnosed with [renal colic, nephrolithiasis] *What to do: *Please continue to take your regular medications as directed. [ 1] New medication prescriptions sent to your pharmacy: [Macrobid] [ ] New medication written as a paper prescription [ ] No new medications given *Please follow up with your primary care provider in 2-3 days, call for an appointment. Let them know you were seen in the Emergency Department and that we ask that you be seen in follow up. We will electronically transmit a record of today's note if your PCP is in our system. You came in today with concern for possible kidney stone on the left as you had been having pain on that side similar to when you had previous kidney stones. We obtained labs today which looked good as well as a CT without contrast to evaluate your kidneys ureters and bladder. You do have stones present with in your kidneys all of them are 5 mm or less they are on both sides. There are no obstructing stones in your ureter today. It is unclear why you are having this pain, it is certainly possible that you are having a little bit of renal colic or that you were passing some very small stones which irritated your ureters. Given that you had a small amount of blood present and some bacteria present in your urine I do think given your other symptoms it makes sense to start you on antibiotics with concern for UTI. Your pain did improve some with the Toradol medication in the emergency department and I am hopeful that this pain will resolve for you over the next day or so. If you do have worsening pain or other symptoms of concern please make sure you seek re-evaluation. *If you do not have a primary care provider please contact the [facility] Resource line at [phone]. They will ask some questions about your medical history and help get you set up with a doctor in the community. *Return to Emergency Department if you should have any new, worsening or concerning symptoms, such as [fever greater than 101 F, shaking chills, worsening pain, persistent vomiting or other bothersome symptoms] Prescriptions: New nitrofurantoin monohyd/m-cryst [Macrobid] 100 mg capsule 100 mg PO BID 7 Days Qty: 14 0RF Rx Instructions: must administer with a meal/food No Action lisinopril 20 mg Tablet 20 mg PO QAM nitroglycerin 0.4 mg tablet, sublingual 0.4 mg SL Q5-15M PRN (Reason: chest pain) Qty: 14 0RF Rx Instructions: until response; do not exceed 3 doses per episode aspirin 81 mg tablet,chewable 81 mg PO DAILY Qty: 10 0RF atorvastatin 80 mg tablet 80 mg PO DAILY docusate calcium [Stool Softener] 240 mg capsule 240 mg PO DAILY metoprolol succinate 25 mg tablet extended release 24 hr 25 mg PO BID oxycodone 5 mg tablet 5 mg PO Q6H PRN (Reason: pain) Qty: 10 0RF ondansetron 4 mg tablet,disintegrating 4 mg PO Q8H PRN (Reason: nausea and vomiting) Qty: 10 0RF ondansetron HCl [Zofran] 4 mg tablet 4 mg PO Q6H PRN (Reason: nausea and vomiting) Qty: 14 0RF hydrocodone-acetaminophen [Naoma] 5-325 mg tablet 1 tab PO Q4-6H PRN (Reason: pain) Qty: 14 0RF oxycodone-acetaminophen [Percocet] 5-325 mg tablet 1 tab PO Q8H PRN (Reason: pain) Qty: 10 0RF Brilinta 90 mg tablet 90 mg PO BID lisinopril 20 mg tablet 10 mg PO QPM tamsulosin 0.4 mg capsule 0.4 mg PO QPM oxycodone-acetaminophen [Percocet] 5-325 mg tablet 1 tab PO Q6H PRN (Reason: pain) Qty: 12 0RF Rx Instructions: May cause drowsiness so please take precautions. ondansetron 4 mg tablet,disintegrating 4 mg PO BID-TID PRN (Reason: nausea and vomiting) Qty: 10 0RF Referrals: Dahiana Goode MD [Primary Care Provider] - Stand Alone Forms: Patient Portal/API ED Sign-out <Jackson Saba MD - Last Filed: 06/29/23 16:41> [facility]: I was immediately available in the department for consultation. ?This documentation has been reviewed and I agree with assessment and plan. Supervised by Jackson Saba MD
[2023-06-29] MEDS: KETOROLAC 30 MG/ML VIAL 15 MG IV (14:43)
[2023-06-29] MEDS: SODIUM CHLORIDE 0.9% 500 ML 1000 ML IV (14:44)
== END 2023-06-29 16:17 | disposition home or self-care (01) ==
PROVIDERS: Emergency Medicine; Emergency Provider Student in an Organized Health Care Education/Training Program; PCP Internal Medicine
DX: N20.0 Calculus of kidney (principal); N23 Unspecified renal colic; N39.0 Urinary tract infection, site not specified; Z87.442 Personal history of urinary calculi; Z79.899 Other long term (current) drug therapy
CPT/HCPCS: 36415; 74176; 80053; 81003; 81015; 85025; 87086; 96361; 96374; 99284; J1885

== ENCOUNTER 2025-03-11 19:47 | Emergency (ER) | payer MEDICARE, OTHER, SELFPAY ==
[2025-03-11] VITALS (11 sets, daily range): BP systolic 163–192; BP diastolic 84–102; PULSE 66–77; RESP 13–26; TEMP 36.6; O2SAT 96–99; BMI 25.0
--- NOTE | 2025-03-11 20:01 | DI.RAD.S_ITS ---
PROCEDURE: XR CHEST 1V INDICATIONS: Chest Pain TECHNIQUE: One view of the chest was acquired. COMPARISON: [facility], CR, XR CHEST 1V, 10/08/2021, 19:35. FINDINGS: Surgical changes and devices: None. Lungs and pleura: Lungs are clear. No pleural effusions or pneumothorax. Mediastinum: Mediastinal contours appear normal. Heart size is normal. Bones and chest wall: No suspicious bony lesions. Overlying soft tissues appear unremarkable. IMPRESSION: No acute cardiopulmonary abnormality is seen. Approved by: Abiola Lr M.D.,Ph.D. on 03/11/2025 at 21:06
--- NOTE | 2025-03-11 20:07 | EKG_ITS ---
[address] [address] [address], [place] [address] Test Date: 2025-03-11 Pat Name: Joaquín Call Department: Room: Gender: Male Placement Interviewer: PINA LYNN : 1960 Requested By: Order Number: [id number] Reading MD: Maximino De Dios MD Measurements Intervals [place] Rate: 72 P: 60 [place]: 156 QRS: -57 QRSD: 102 T: 12 QT: 390 QTc: 427 Interpretive Statements Normal sinus rhythm Left anterior fascicular block Electronically Signed On 03-12-2025 6:46:59 PST by Maximino De Dios MD
[2025-03-11] MEDS: ASPIRIN 81 MG CHEW TAB 324 MG PO (20:18)
[2025-03-11 20:33] LABS: Add Manual Diff / Slide Review NO; Hematocrit 47.7 % (41-53); Hemoglobin 16.8 g/dL (13.5-17.5); Lymphocytes Absolute Auto 1800 /uL (1100-4500); Mean Corpuscular HGB Conc 35.3 % (30-36); Mean Corpuscular Hemoglobin 34.2 PG (26-34); Mean Corpuscular Volume 96.9 fL (80-100); Platelet Count 224 X10^3/uL (150-400)
--- NOTE | 2025-03-11 20:36 | ED.CHESTPAIN ---
HPI - Chest Pain <Ana Luisa De Paz - Last Filed: 03/12/25 16:01> General Chief Complaint: Chest Pain Stated Complaint: Chest pain since 1/2 PM. hx of heart attack Time Seen by Provider: 03/11/25 20:26 Source: patient, RN notes reviewed and old records reviewed Mode of arrival: Ambulatory Limitations: no limitations History of Present Illness HPI narrative: 63-year-old male history of hypertension, dyslipidemia, nephrolithiasis coronary artery disease cardiac stents in July of 2018 on aspirin 81 mg daily, COPD who presents with complaint of chest pressure. Patient states he will intermittently get pain from his left axilla down in his left chest wall. He states that has been going on periodically since 2019 but today pain started to radiate across his chest to the right side. He describes it as tightness like a bungee cord strapped across his chest holding await to his chest. He denies any shortness of breath. No diaphoresis. He did not note he felt fatigued. He notes little bit of discomfort down his left arm. He denies any radiation to his neck back or belly. No syncope. Denies nausea or vomiting. He states his bowel movements and urination has been normal. He noticed his legs has a little bit more tight today but he has not visually seen any swelling. Patient states no fevers no cold cough or congestion symptoms. Patient is on lisinopril 40 mg daily, metoprolol, Lipitor takes an aspirin 81 mg daily. He took his normal medications today. He notes he had a cardiac stent in 2019 after having an NSTEMI. He has had a urologic procedures for now has a lithiasis but no other surgeries. He does continue to smoke tobacco, denies any regular alcohol, no recreational drugs. [facility] in [place] for his primary care with Dr. Odell. He did see Dr. Alejandro for cardiology but has not seen him for 2 years. Related Data Home Medications ?Medication ?Instructions ?Recorded ?Confirmed lisinopril 20 mg tablet 20 mg PO QAM 11/14/17 02/19/19 ticagrelor 90 mg tablet 90 mg PO BID 08/18/18 02/19/19 atorvastatin 80 mg tablet 80 mg PO DAILY 10/10/18 02/19/19 docusate calcium 240 mg capsule 240 mg PO DAILY 10/10/18 02/19/19 metoprolol succinate 25 mg 25 mg PO BID 10/10/18 02/19/19 tablet,extended release 24 hr lisinopril 20 mg tablet 10 mg PO QPM 02/19/19 02/19/19 tamsulosin 0.4 mg capsule 0.4 mg PO QPM 02/19/19 02/19/19 Previous Rx's ?Medication ?Instructions ?Recorded aspirin 81 mg chewable tablet 81 mg PO DAILY #10 tabs 11/14/17 nitroglycerin 0.4 mg sublingual 0.4 mg sublingual Q5-15M PRN chest 11/14/17 tablet pain #14 tabs ondansetron 4 mg disintegrating 4 mg PO BID-TID PRN nausea and 02/19/19 tablet vomiting #10 tabs oxycodone-acetaminophen 5 mg-325 1 tab PO Q6H PRN pain #12 tabs 02/19/19 mg tablet (Percocet) ondansetron 4 mg disintegrating 4 mg PO Q8H PRN nausea and 05/13/19 tablet vomiting #10 tabs oxycodone 5 mg tablet 5 mg PO Q6H PRN pain #10 tabs 05/13/19 hydrocodone 5 mg-acetaminophen 325 1 tab PO Q4-6H PRN pain #14 tabs 06/13/19 mg tablet ([place]) ondansetron HCl 4 mg tablet 4 mg PO Q6H PRN nausea and 06/13/19 (Zofran) vomiting #14 tabs oxycodone-acetaminophen 5 mg-325 1 tab PO Q8H PRN pain #10 tabs 06/10/ mg tablet (Percocet) Allergies Allergy/AdvReac Type Severity Reaction Status Date / Time No Known Drug Allergies Allergy Verified 03/11/25 20:04 Review of Systems <Ana Luisa De Paz DO - Last Filed: 03/12/25 16:01> Review of Systems ROS Unobtainable: All systems reviewed & are unremarkable except as noted in HPI and below Patient History <Ana Luisa De Paz DO - Last Filed: 03/12/25 16:01> Medical History CAD (coronary artery disease) DJD (degenerative joint disease), cervical Hypertension Kidney stones Tobacco abuse Surgical History H/O lithotripsy H/O heart artery stent No significant past surgical history Social History Smoking Status: Current every day smoker alcohol intake: current substance use type: does not use Smoking Status: Current every day smoker alcohol intake frequency: 0-2 drinks per day Exam <Ana Luisa De Paz DO - Last Filed: 03/12/25 16:01> Narrative Exam Narrative: GENERAL: Alert and oriented x three, well-appearing male in mild distress HEENT: Head normocephalic, atraumatic, EOMI, pupils reactive, face symmetric, moist mucous membranes NECK: Supple, full range of motion CARDIOVASCULAR: Regular rate and rhythm without murmurs, rubs or gallops. No JVD. No edema bilateral upper and lower extremities appreciated. No reproducible chest pain on exam. No rash or skin changes appreciated RESPIRATORY: Breath sounds equal bilaterally, no wheezes rales or rhonchi. No tachypnea accessory muscle use ABDOMEN: Soft, nontender. Normoactive bowel sounds all 4 quadrants. No guarding or rebound, rigidity, no mass : No CVA tenderness EXTREMITIES: Normal range of motion, no clubbing or edema. Neurovascularly intact NEUROLOGICAL: Cranial nerves II through XII grossly intact. Moving all extremities SKIN: Warm, dry, no petechiae, no rashes or lesions. Initial Vital Signs Initial Vital Signs: Vital Signs Temperature 98 F 03/11/25 20:01 <Rio Mcmanus MD - Last Filed: 03/12/25 01:57> Initial Vital Signs Initial Vital Signs: Vital Signs Temperature 98 F 03/11/25 20:01 Course <Ana Luisa De Paz DO - Last Filed: 03/12/25 16:01> Orders Ordered: ED Orders 03/12/25 08:27 Troponin I Stat 03/12/25 12:45 PTT Partial Thromboplastin Romulo Routine Discontinued Medications Aspirin (Aspirin 81 Mg Chew Tab) 324 mg PO NOW ONE Stop: 03/11/25 20:02 Last Admin: 03/11/25 20:18 Dose: 243 mg Documented By: SARAH BETH Heparin Sodium (Porcine) (Heparin 5,000 Unit/Ml Vial) 4,500 unit 60 unit/kg (4500 unit) IV NOW ONE Stop: 03/11/25 22:54 Last Admin: 03/11/25 23:17 Dose: 4,500 unit Documented By: DAVID Heparin Sodium/Dextrose (Heparin Drip) 25,000 unit in 500 mls @ 17.418 mls/hr IV CONT ROSALBA; Protocol Last Titration: 03/12/25 06:55 Dose: 10 units/kg/hr, 14.515 mls/hr Documented By: DAVID Co-signed By: KYLER Titration: 03/12/25 06:24 Dose: 0 units/kg/hr, 0 mls/hr Documented By: DAVID Co-signed By: KYLER Admin: 03/11/25 23:19 Dose: 12 units/kg/hr, 17.418 mls/hr Documented By: DAVID Co-signed By: SARAH BETH Morphine Sulfate (Morphine 4 Mg/Ml Inj) 4 mg IV NOW ONE Stop: 03/11/25 22:59 Last Admin: 03/11/25 23:13 Dose: 4 mg Documented By: DAVID Morphine Sulfate (Morphine 4 Mg/Ml Inj) 4 mg IV NOW ONE Stop: 03/12/25 06:35 Last Admin: 03/12/25 06:47 Dose: 4 mg Documented By: DAVID Morphine Sulfate (Morphine 4 Mg/Ml Inj) 2 mg IV NOW ONE Stop: 03/12/25 09:21 Last Admin: 03/12/25 09:25 Dose: 2 mg Documented By: MARTY Morphine Sulfate (Morphine 2 Mg/Ml Inj) 2 mg IV NOW ONE Stop: 03/12/25 12:42 Last Admin: 03/12/25 12:47 Dose: 2 mg Documented By: NURYS Nicotine (Nicotine 14 Patch) 14 mg TOP NOW ONE Stop: 03/12/25 01:14 Last Admin: 03/12/25 01:40 Dose: 14 mg Documented By: DAVID Nitroglycerin (Nitroglycerin 0.4 Mg Sl Tab) 0.4 mg SL [id number] PRN PRN Reason: Chest Pain Last Admin: 03/11/25 22:21 Dose: 0.4 mg Documented By: DAVID Ondansetron HCl (Ondansetron 4 Mg/2 Ml Inj) 4 mg IV NOW ONE Stop: 03/12/25 09:36 Last Admin: 03/12/25 09:37 Dose: 4 mg Documented By: SGF Vital Signs Vital signs: Vital Signs - 8 hr 03/12/25 08:28 03/12/25 08:28 03/12/25 08:30 Pulse Rate 62 62 Respiratory Rate 25 H 25 H Blood Pressure 140/72 Pulse Oximetry 97 96 Oxygen Delivery Method 03/12/25 08:31 03/12/25 08:31 03/12/25 08:45 Pulse Rate 62 58 L Respiratory Rate 26 H 19 Blood Pressure 142/75 H Pulse Oximetry 96 95 Oxygen Delivery Method 03/12/25 08:45 03/12/25 09:00 03/12/25 09:00 Pulse Rate 58 L Respiratory Rate 13 Blood Pressure 137/87 146/78 H Pulse Oximetry 98 Oxygen Delivery Method 03/12/25 09:15 03/12/25 09:15 03/12/25 09:30 Pulse Rate 56 L 58 L Respiratory Rate 19 12 Blood Pressure 144/80 H Pulse Oximetry 97 98 Oxygen Delivery Method 03/12/25 09:30 03/12/25 10:00 03/12/25 10:01 Pulse Rate 57 L Respiratory Rate 29 H Blood Pressure 158/89 H 144/73 H Pulse Oximetry 99 Oxygen Delivery Method 03/12/25 10:01 03/12/25 10:30 03/12/25 10:30 Pulse Rate 54 L 55 L Respiratory Rate 14 12 Blood Pressure 158/75 H Pulse Oximetry 98 98 Oxygen Delivery Method 03/12/25 11:00 03/12/25 11:00 03/12/25 11:16 Pulse Rate 58 L Respiratory Rate 13 16 Blood Pressure 140/72 Pulse Oximetry 98 Oxygen Delivery Method 03/12/25 11:30 03/12/25 11:30 03/12/25 12:00 Pulse Rate 58 L Respiratory Rate 13 Blood Pressure 136/71 143/73 H Pulse Oximetry 97 Oxygen Delivery Method Room Air 03/12/25 12:00 03/12/25 12:30 03/12/25 12:30 Pulse Rate 60 65 Respiratory Rate 16 18 Blood Pressure 159/75 H Pulse Oximetry 98 99 Oxygen Delivery Method Room Air <Rio Mcmanus MD - Last Filed: 03/12/25 01:57> Course Course Narrative: 12:00 Patient care transferred to sc at the change of shift by Dr. De Paz with disposition pending. Orders Ordered: ED Orders 03/12/25 08:27 Troponin I Stat 03/12/25 12:45 PTT Partial Thromboplastin Romulo Routine Discontinued Medications Aspirin (Aspirin 81 Mg Chew Tab) 324 mg PO NOW ONE Stop: 03/11/25 20:02 Last Admin: 03/11/25 20:18 Dose: 243 mg Documented By: SARAH BETH Heparin Sodium (Porcine) (Heparin 5,000 Unit/Ml Vial) 4,500 unit 60 unit/kg (4500 unit) IV NOW ONE Stop: 03/11/25 22:54 Last Admin: 03/11/25 23:17 Dose: 4,500 unit Documented By: DAVID Heparin Sodium/Dextrose (Heparin Drip) 25,000 unit in 500 mls @ 17.418 mls/hr IV CONT ROSALBA; Protocol Last Titration: 03/12/25 06:55 Dose: 10 units/kg/hr, 14.515 mls/hr Documented By: DAVID Co-signed By: KYLER Titration: 03/12/25 06:24 Dose: 0 units/kg/hr, 0 mls/hr Documented By: DAVID Co-signed By: KYLER Admin: 03/11/25 23:19 Dose: 12 units/kg/hr, 17.418 mls/hr Documented By: DAVID Co-signed By: SARAH BETH Morphine Sulfate (Morphine 4 Mg/Ml Inj) 4 mg IV NOW ONE Stop: 03/11/25 22:59 Last Admin: 03/11/25 23:13 Dose: 4 mg Documented By: DAVID Morphine Sulfate (Morphine 4 Mg/Ml Inj) 4 mg IV NOW ONE Stop: 03/12/25 06:35 Last Admin: 03/12/25 06:47 Dose: 4 mg Documented By: DAVID Morphine Sulfate (Morphine 4 Mg/Ml Inj) 2 mg IV NOW ONE Stop: 03/12/25 09:21 Last Admin: 03/12/25 09:25 Dose: 2 mg Documented By: MARTY Morphine Sulfate (Morphine 2 Mg/Ml Inj) 2 mg IV NOW ONE Stop: 03/12/25 12:42 Last Admin: 03/12/25 12:47 Dose: 2 mg Documented By: NURYS Nicotine (Nicotine 14 Patch) 14 mg TOP NOW ONE Stop: 03/12/25 01:14 Last Admin: 03/12/25 01:40 Dose: 14 mg Documented By: DAVID Nitroglycerin (Nitroglycerin 0.4 Mg Sl Tab) 0.4 mg SL [id number] PRN PRN Reason: Chest Pain Last Admin: 03/11/25 22:21 Dose: 0.4 mg Documented By: DAVID Ondansetron HCl (Ondansetron 4 Mg/2 Ml Inj) 4 mg IV NOW ONE Stop: 03/12/25 09:36 Last Admin: 03/12/25 09:37 Dose: 4 mg Documented By: MARTY Vital Signs Vital signs: Vital Signs - 8 hr 03/12/25 08:28 03/12/25 08:28 03/12/25 08:30 Pulse Rate 62 62 Respiratory Rate 25 H 25 H Blood Pressure 140/72 Pulse Oximetry 97 96 Oxygen Delivery Method 03/12/25 08:31 03/12/25 08:31 03/12/25 08:45 Pulse Rate 62 58 L Respiratory Rate 26 H 19 Blood Pressure 142/75 H Pulse Oximetry 96 95 Oxygen Delivery Method 03/12/25 08:45 03/12/25 09:00 03/12/25 09:00 Pulse Rate 58 L Respiratory Rate 13 Blood Pressure 137/87 146/78 H Pulse Oximetry 98 Oxygen Delivery Method 03/12/25 09:15 03/12/25 09:15 03/12/25 09:30 Pulse Rate 56 L 58 L Respiratory Rate 19 12 Blood Pressure 144/80 H Pulse Oximetry 97 98 Oxygen Delivery Method 03/12/25 09:30 03/12/25 10:00 03/12/25 10:01 Pulse Rate 57 L Respiratory Rate 29 H Blood Pressure 158/89 H 144/73 H Pulse Oximetry 99 Oxygen Delivery Method 03/12/25 10:01 03/12/25 10:30 03/12/25 10:30 Pulse Rate 54 L 55 L Respiratory Rate 14 12 Blood Pressure 158/75 H Pulse Oximetry 98 98 Oxygen Delivery Method 03/12/25 11:00 03/12/25 11:00 03/12/25 11:16 Pulse Rate 58 L Respiratory Rate 13 16 Blood Pressure 140/72 Pulse Oximetry 98 Oxygen Delivery Method 03/12/25 11:30 03/12/25 11:30 03/12/25 12:00 Pulse Rate 58 L Respiratory Rate 13 Blood Pressure 136/71 143/73 H Pulse Oximetry 97 Oxygen Delivery Method Room Air 03/12/25 12:00 03/12/25 12:30 03/12/25 12:30 Pulse Rate 60 65 Respiratory Rate 16 18 Blood Pressure 159/75 H Pulse Oximetry 98 99 Oxygen Delivery Method Room Air MDM - Chest Pain <Ana Luisaace De Paz, - Last Filed: 03/12/25 16:01> Lab Data 03/11/25 20:20 03/11/25 20:20 Labs: Lab Results 03/11/25 03/11/25 03/12/25 Range/Units 20:20 22:15 00:10 WBC 8.8 (4.5-11.0) X10^3/uL RBC 4.92 (4.5-5.9) X10^6/uL Hgb 16.8 (13.5-17.5) g/dL Hct 47.7 (41-53) % MCV 96.9 (80-100) fL MCH 34.2 H (26-34) PG MCHC 35.3 (30-36) % RDW 13.0 (11.6-14.8) % Plt Count 224 (150-400) X10^3/uL Neut % (Auto) 69.3 (50-75) % Lymph % (Auto) 20.1 L (25-40) % [place] % (Auto) 8.7 (3-14) % Eos % (Auto) 1.2 L (2-4) % Baso % (Auto) 0.7 (0-2) % Neut # (Auto) 6100 (0015-6935) /uL Lymph # (Auto) 1800 (3912-0238) /uL [place] # (Auto) 800 (0-900) /uL Eos # (Auto) 100 (0-450) /uL Baso # (Auto) 100 (0-100) /uL PT 10.3 (9.4-12.5) SECONDS INR 0.9 (0.9-1.3) APTT 29 (25.1-36.5) SECONDS Sodium 138 (137-145) mmol/L Potassium 4.2 (3.4-5.1) mmol/L Chloride 105 (98-107) mmol/L Carbon Dioxide 23 (22-32) mmol/L BUN 19 (9-20) mg/dL Creatinine 0.89 (0.66-1.25) mg/dL Estimated GFR > 60 (>60) mL/min BUN/Creatinine Ratio 21.3 (6-22) Glucose 217 H (70-99) mg/dL Calcium 9.8 (8.4-10.2) mg/dL Magnesium 1.8 (1.6-2.3) mg/dL Total Bilirubin 0.5 (0.2-1.3) mg/dL AST 27 (17-59) IU/L ALT 31 (<50) IU/L Alkaline Phosphatase 92 (38-126) U/L Total Creatine Kinase 143 (55-170) U/L Troponin I 0.027 0.060 H 0.083 H (0.01-0.034) ng/mL NT-Pro-B Natriuret Pep 386 H (<125) pg/mL Total Protein 7.8 (6.3-8.2) g/dL Albumin 4.6 (3.5-5.0) g/dL Globulin 3.2 (1.7-4.1) g/dL Albumin/Globulin Ratio 1.4 (1.0-2.8) Lipase 116 (23-300) U/L 03/12/25 03/12/25 03/12/25 Range/Units 05:30 08:27 12:45 WBC (4.5-11.0) X10^3/uL RBC (4.5-5.9) X10^6/uL Hgb (13.5-17.5) g/dL Hct (41-53) % MCV (80-100) fL MCH (26-34) PG MCHC (30-36) % RDW (11.6-14.8) % Plt Count (150-400) X10^3/uL Neut % (Auto) (50-75) % Lymph % (Auto) (25-40) % [place] % (Auto) (3-14) % Eos % (Auto) (2-4) % Baso % (Auto) (0-2) % Neut # (Auto) (3195-4941) /uL Lymph # (Auto) (2355-3685) /uL [place] # (Auto) (0-900) /uL Eos # (Auto) (0-450) /uL Baso # (Auto) (0-100) /uL PT (9.4-12.5) SECONDS INR (0.9-1.3) APTT 87 H* D 53 H D (25.1-36.5) SECONDS Sodium (137-145) mmol/L Potassium (3.4-5.1) mmol/L Chloride (98-107) mmol/L Carbon Dioxide (22-32) mmol/L BUN (9-20) mg/dL Creatinine (0.66-1.25) mg/dL Estimated GFR (>60) mL/min BUN/Creatinine Ratio (6-22) Glucose (70-99) mg/dL Calcium (8.4-10.2) mg/dL Magnesium (1.6-2.3) mg/dL Total Bilirubin (0.2-1.3) mg/dL AST (17-59) IU/L ALT (<50) IU/L Alkaline Phosphatase (38-126) U/L Total Creatine Kinase (55-170) U/L Troponin I 0.080 H (0.01-0.034) ng/mL NT-Pro-B Natriuret Pep (<125) pg/mL Total Protein (6.3-8.2) g/dL Albumin (3.5-5.0) g/dL Globulin (1.7-4.1) g/dL Albumin/Globulin Ratio (1.0-2.8) Lipase (23-300) U/L MDM Narrative Medical decision making narrative: Sinus rhythm left anterior fascicular block rate of 72 GA 156 QRS of 102 QTC of 427, patient has prior from 10/08/2021 has some similar changes particularly in V2. Patient repeat EKG shows sinus rhythm left anterior fascicular block rate of 65 GA 150 QRS of 90 QTC of [address] depression. EKG 2. Shows sinus rhythm left anterior fascicular block appears to have [address] elevation V1 through V3 is only present on V2 on prior. Concern for STEMI. Labs show normal white count, hemoglobin and platelets. Coags are negative, BUN electrolytes are appropriate creatinine normal glucose is 217 LFTs are normal. Lipase is 116, troponin is 0.027 with a BNP of 386. Repeat troponin is 0.06 Chest x-ray, shows no acute cardiopulmonary abnormality Patient had aspirin 324 mg total, take 81 mg at home prior to arrival and 3 additional aspirin here, nitro sublingual patient had no change in symptoms after nitro sublingual. Patient also notes that yesterday [facility] and moved 6 large very heavy trash cans when she was lifting up into his pickup truck and moving laterally multiple times and thinks may be contributing to his pain. Patient started on heparin bolus and gtt with morphine for continued chest pain. Spoke with ED physician at [facility] for STEMI. EKGS faxed over, Dr. Sullivan interventional cardiology reviewed at [facility] does not think is a STEMI no plan for cath tonight. Does not accept for transfer. Can call over to warehouse lead for transfer as direct admit. Spoke with cardiology [facility], Dr. Bustos @ [phone]. States that we need to talk with Dr. Victoria cardiology as he covers [facility] and [facility]. Dr. Bustos states it would not be his patient even if transferred to [facility] under hospitalist service. We did discuss that EKGs has been faxed to Dr. Sullivan for concern about potential STEMI. Dr. Sullivan had reviewed. Paged Dr. Victoria, Cardiology @ [phone]. States number is not available. Tried 3 times unsuccessfully. Did talk with Dr. Victoria, would note if rising troponin would transfer. [facility] no beds available. Call out to multiple facilities. 00:00 Patient care transferred to sc at the change of shift by Dr. De Paz with disposition pending. This is a 64-year-old male patient with a history of hypertension, dyslipidemia and CAD with coronary stent placement who presents with aching and bandlike chest pain waxing and waning since 1300 this afternoon with no diaphoresis or nausea. Initial EKG on presentation at 8:00 p.m. was unremarkable with no ischemic changes. Dr. De Paz felt that the 2nd EKG at 10:[address] possible [address] elevation in V1 and V2 and had the patient's case and EKG reviewed by cardiology at [facility], Dr. Sullivan, who did not think this was a STEMI and no need for catheterization tonight. Efforts were made to transfer the patient to [facility] where they do have cardiac analytical lab technician if needed during admission such as tomorrow or the next day. This led to consultation with Dr. Victoria who would like to have a 3rd troponin level. Dr. De Paz started the patient on heparin protocol. Initial troponin was negative at 0.027 and the 2nd troponin level 2 hours later was 0.060. Patient had no relief from nitroglycerin but he received a dose of morphine and since then has had no further chest symptoms. On my history with the patient he mentioned that he did have some increased pain with deep breathing and with movement and he was doing a lot of exertion and lifting yesterday. 00:30 I discussed the patient's care with Dr. Jeffery, cardiology at [facility] who feels the patient is appropriate for transfer there and he will consult but ask that we discuss with the hospital. 00:48 I discussed the patient's care with Dr. Leung, hospitalist who accepts the transfer for what appears to be a non-STEMI or the very least acute coronary syndrome and may need cardiac catheterization which we do not have here. Patient currently is stable with no chest pain. <Rio Mcmanus MD - Last Filed: 03/12/25 01:57> Lab Data Labs: Lab Results 03/11/25 03/11/25 03/12/25 Range/Units 20:20 22:15 00:10 WBC 8.8 (4.5-11.0) X10^3/uL RBC 4.92 (4.5-5.9) X10^6/uL Hgb 16.8 (13.5-17.5) g/dL Hct 47.7 (41-53) % MCV 96.9 (80-100) fL MCH 34.2 H (26-34) PG MCHC 35.3 (30-36) % RDW 13.0 (11.6-14.8) % Plt Count 224 (150-400) X10^3/uL Neut % (Auto) 69.3 (50-75) % Lymph % (Auto) 20.1 L (25-40) % [place] % (Auto) 8.7 (3-14) % Eos % (Auto) 1.2 L (2-4) % Baso % (Auto) 0.7 (0-2) % Neut # (Auto) 6100 (5785-0732) /uL Lymph # (Auto) 1800 (3200-5108) /uL [place] # (Auto) 800 (0-900) /uL Eos # (Auto) 100 (0-450) /uL Baso # (Auto) 100 (0-100) /uL PT 10.3 (9.4-12.5) SECONDS INR 0.9 (0.9-1.3) APTT 29 (25.1-36.5) SECONDS Sodium 138 (137-145) mmol/L Potassium 4.2 (3.4-5.1) mmol/L Chloride 105 (98-107) mmol/L Carbon Dioxide 23 (22-32) mmol/L BUN 19 (9-20) mg/dL Creatinine 0.89 (0.66-1.25) mg/dL Estimated GFR > 60 (>60) mL/min BUN/Creatinine Ratio 21.3 (6-22) Glucose 217 H (70-99) mg/dL Calcium 9.8 (8.4-10.2) mg/dL Magnesium 1.8 (1.6-2.3) mg/dL Total Bilirubin 0.5 (0.2-1.3) mg/dL AST 27 (17-59) IU/L ALT 31 (<50) IU/L Alkaline Phosphatase 92 (38-126) U/L Total Creatine Kinase 143 (55-170) U/L Troponin I 0.027 0.060 H 0.083 H (0.01-0.034) ng/mL NT-Pro-B Natriuret Pep 386 H (<125) pg/mL Total Protein 7.8 (6.3-8.2) g/dL Albumin 4.6 (3.5-5.0) g/dL Globulin 3.2 (1.7-4.1) g/dL Albumin/Globulin Ratio 1.4 (1.0-2.8) Lipase 116 (23-300) U/L 03/12/25 03/12/25 03/12/25 Range/Units 05:30 08:27 12:45 WBC (4.5-11.0) X10^3/uL RBC (4.5-5.9) X10^6/uL Hgb (13.5-17.5) g/dL Hct (41-53) % MCV (80-100) fL MCH (26-34) PG MCHC (30-36) % RDW (11.6-14.8) % Plt Count (150-400) X10^3/uL Neut % (Auto) (50-75) % Lymph % (Auto) (25-40) % [place] % (Auto) (3-14) % Eos % (Auto) (2-4) % Baso % (Auto) (0-2) % Neut # (Auto) (1388-6407) /uL Lymph # (Auto) (1266-8381) /uL [place] # (Auto) (0-900) /uL Eos # (Auto) (0-450) /uL Baso # (Auto) (0-100) /uL PT (9.4-12.5) SECONDS INR (0.9-1.3) APTT 87 H* D 53 H D (25.1-36.5) SECONDS Sodium (137-145) mmol/L Potassium (3.4-5.1) mmol/L Chloride (98-107) mmol/L Carbon Dioxide (22-32) mmol/L BUN (9-20) mg/dL Creatinine (0.66-1.25) mg/dL Estimated GFR (>60) mL/min BUN/Creatinine Ratio (6-22) Glucose (70-99) mg/dL Calcium (8.4-10.2) mg/dL Magnesium (1.6-2.3) mg/dL Total Bilirubin (0.2-1.3) mg/dL AST (17-59) IU/L ALT (<50) IU/L Alkaline Phosphatase (38-126) U/L Total Creatine Kinase (55-170) U/L Troponin I 0.080 H (0.01-0.034) ng/mL NT-Pro-B Natriuret Pep (<125) pg/mL Total Protein (6.3-8.2) g/dL Albumin (3.5-5.0) g/dL Globulin (1.7-4.1) g/dL Albumin/Globulin Ratio (1.0-2.8) Lipase (23-300) U/L Imaging Data Chest x-ray: Attestation: I personally reviewed and interpreted this imaging study as follows: (Unremarkable. No acute disease) MDM Narrative Medical decision making narrative: Sinus rhythm left anterior fascicular block rate of 72 GA 156 QRS of 102 QTC of 427, patient has prior from 10/08/2021 has some similar changes particularly in V2. Patient repeat EKG shows sinus rhythm left anterior fascicular block rate of 65 GA 150 QRS of 90 QTC of [address] depression. EKG 2. Shows sinus rhythm left anterior fascicular block appears to have [address] elevation V1 through V3 is only present on V2 on prior. Concern for STEMI. Labs show normal white count, hemoglobin and platelets. Coags are negative, BUN electrolytes are appropriate creatinine normal glucose is 217 LFTs are normal. Lipase is 116, troponin is 0.027 with a BNP of 386. Repeat troponin is 0.06 Chest x-ray, shows no acute cardiopulmonary abnormality Patient had aspirin 324 mg total, take 81 mg at home prior to arrival and 3 additional aspirin here, nitro sublingual patient had no change in symptoms after nitro sublingual. Patient also notes that yesterday [facility] and moved 6 large very heavy trash cans when she was lifting up into his pickup truck and moving laterally multiple times and thinks may be contributing to his pain. Patient started on heparin bolus and gtt with morphine for continued chest pain. Spoke with ED physician at [facility] for STEMI. EKGS faxed over, Dr. Sullivan interventional cardiology reviewed at [facility] does not think is a STEMI no plan for cath tonight. Does not accept for transfer. Can call over to warehouse lead for transfer as direct admit. Spoke with cardiology [facility], Dr. Bustos @ [phone]. States that we need to talk with Dr. Victoria cardiology as he covers [facility] and [facility]. Dr. Bustos states it would not be his patient even if transferred to [facility] under hospitalist service. We did discuss that EKGs has been faxed to Dr. Sullivan for concern about potential STEMI. Dr. Sullivan had reviewed. Paged Dr. Victoria, Cardiology @ [phone]. States number is not available. Tried 3 times unsuccessfully. Did talk with Dr. Victoria, would note if rising troponin would transfer. [facility] no beds available. Call out to multiple facilities. 00:00 Patient care transferred to sc at the change of shift by Dr. De Paz with disposition pending. This is a 64-year-old male patient with a history of hypertension, dyslipidemia and CAD with coronary stent placement who presents with aching and bandlike chest pain waxing and waning since 1300 this afternoon with no diaphoresis or nausea. Initial EKG on presentation at 8:00 p.m. was unremarkable with no ischemic changes. Dr. De Paz felt that the 2nd EKG at 10:[address] elevation in V1 and V2 and had the patient's case and EKG reviewed by cardiology at [facility], Dr. Sullivan, who did not think this was a STEMI and no need for catheterization tonight. Efforts were made to transfer the patient to [facility] where they do have cardiac analytical lab technician if needed during admission such as tomorrow or the next day. This led to consultation with Dr. Victoria who would like to have a 3rd troponin level. Dr. De Paz started the patient on heparin protocol. Initial troponin was negative at 0.027 and the 2nd troponin level 2 hours later was 0.060. Patient had no relief from nitroglycerin but he received a dose of morphine and since then has had no further chest symptoms. On my history with the patient he mentioned that he did have some increased pain with deep breathing and with movement and he was doing a lot of exertion and lifting yesterday. 00:30 I discussed the patient's care with Dr. Jeffery, cardiology at [facility] who feels the patient is appropriate for transfer there and he will consult but ask that we discuss with the hospital. 00:48 I discussed the patient's care with Dr. Leung, hospitalist who accepts the transfer for what appears to be a non-STEMI or the very least acute coronary syndrome and may need cardiac catheterization which we do not have here. Patient currently is stable with no chest pain. Critical Care Time <Ana Luisa De Paz, DO - Last Filed: 03/12/25 16:01> Critical Care Time Critical Care Time: Yes Total Critical Care Time: 40 Attestation: The high probability of a clinically significant, sudden or life threatening deterioration of the [systems] system(s) required my full and direct attention, intervention and personal management. The aggregate critical care time was [--] minutes. This time is in addition to time spent performing reported procedures but includes the following: [x] Data Review and interpretation [x] Patient assessment and monitoring of vital signs [x] Documentation [x] Medication orders and management Discharge Plan Departure Patient Disposition: [facility] Clinical Impression: Myocardial infarct Prescriptions: No Action lisinopril 20 mg Tablet 20 mg PO QAM nitroglycerin 0.4 mg tablet, sublingual 0.4 mg SL Q5-15M PRN (Reason: chest pain) Qty: 14 0RF Rx Instructions: until response; do not exceed 3 doses per episode aspirin 81 mg tablet,chewable 81 mg PO DAILY Qty: 10 0RF atorvastatin 80 mg tablet 80 mg PO DAILY docusate calcium [Stool Softener] 240 mg capsule 240 mg PO DAILY metoprolol succinate 25 mg tablet extended release 24 hr 25 mg PO BID oxycodone 5 mg tablet 5 mg PO Q6H PRN (Reason: pain) Qty: 10 0RF ondansetron 4 mg tablet,disintegrating 4 mg PO Q8H PRN (Reason: nausea and vomiting) Qty: 10 0RF ondansetron HCl [Zofran] 4 mg tablet 4 mg PO Q6H PRN (Reason: nausea and vomiting) Qty: 14 0RF hydrocodone-acetaminophen [[place]] 5-325 mg tablet 1 tab PO Q4-6H PRN (Reason: pain) Qty: 14 0RF oxycodone-acetaminophen [Percocet] 5-325 mg tablet 1 tab PO Q8H PRN (Reason: pain) Qty: 10 0RF Brilinta 90 mg tablet 90 mg PO BID lisinopril 20 mg tablet 10 mg PO QPM tamsulosin 0.4 mg capsule 0.4 mg PO QPM oxycodone-acetaminophen [Percocet] 5-325 mg tablet 1 tab PO Q6H PRN (Reason: pain) Qty: 12 0RF Rx Instructions: May cause drowsiness so please take precautions. ondansetron 4 mg tablet,disintegrating 4 mg PO BID-TID PRN (Reason: nausea and vomiting) Qty: 10 0RF Referrals: Corazon Odell MD [Primary Care Provider, Family Practice]
[2025-03-11 20:46] LABS: INR 0.9 (0.9-1.3); Prothrombin Time 10.3 SECONDS (9.4-12.5)
[2025-03-11 20:48] LABS: PTT Partial Thromboplastin Tim 29 SECONDS (25.1-36.5)
[2025-03-11 20:50] LABS: Alanine Aminotransferase 31 IU/L (<50); Albumin 4.6 g/dL (3.5-5.0); Albumin Globulin Ratio 1.4 (1.0-2.8); Alkaline Phosphatase 92 U/L (38-126); Blood Urea Nitrogen 19 mg/dL (9-20); Calcium 9.8 mg/dL (8.4-10.2); Carbon Dioxide 23 mmol/L (22-32); Chloride 105 mmol/L (98-107); Creatine Kinase 143 U/L (55-170); Estimated Glomerular Filt Rate > 60 mL/min (>60); Globulin 3.2 g/dL (1.7-4.1); Glucose 217 mg/dL (70-99); HEMOLYSIS < 15 (0-50); Lipase 116 U/L (23-300); Magnesium 1.8 mg/dL (1.6-2.3); Potassium 4.2 mmol/L (3.4-5.1); Sodium 138 mmol/L (137-145); Total Protein 7.8 g/dL (6.3-8.2)
[2025-03-11 21:02] LABS: NT-proBNP (BNP-Adult 18+) 386 pg/mL (<125); Troponin I 0.027 ng/mL (0.01-0.034)
[2025-03-11] MEDS: NITROGLYCERIN 0.4 MG SL TAB SL (22:21)
--- NOTE | 2025-03-11 22:22 | EKG_ITS ---
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
--- NOTE | 2025-03-11 22:25 | PC.NURSE ---
pt states the ntg did not ease the pain any, Dr De Paz informed
[2025-03-11 22:49] LABS: Troponin I 0.060 ng/mL (0.01-0.034)
[2025-03-11] MEDS: MORPHINE 4 MG/ML INJ IV (23:13)
--- NOTE | 2025-03-11 23:15 | PC.NURSE ---
2nd vasile kera and sent to lab, pt resting on stretcher with HOB, states he thinks the c/p is related to him taking items to the dump yesterday and having to lift and pull on the heavy cans admits to the c/p increasing with deep breaths, pain is substernal and radiates out across the chest, at bedside
[2025-03-11] MEDS: HEPARIN 5,000 UNIT/ML VIAL 4500 UNIT IV (23:17)
[2025-03-11] MEDS: HEPARIN DRIP 25,000 UNIT/500 ML IV.SOLN 17.418 UNIT IV (23:19)
--- NOTE | 2025-03-11 23:39 | PC.NURSE ---
pt given turkey sandwich and drink
[2025-03-12] VITALS (39 sets, daily range): BP systolic 131–189; BP diastolic 65–92; PULSE 54–73; RESP 12–29; O2SAT 95–99
[2025-03-12 00:43] LABS: Troponin I 0.083 ng/mL (0.01-0.034)
--- NOTE | 2025-03-12 00:47 | PC.NURSE ---
talked with pt, attempted to try to help pt better understand what was happening, pt stated he sort of understood the enzyme thing but didn't really understand what was emergent vs not as emergent when he knew at anytime he could have a heart attack. discussed with pt the verbage regarding his situation and what made it more emergent vs not as emergent, pt verbalized understanding, pt did voice concern over having to travel a long time for tx d/t his having to travel so much taking family members to appts, he stated its just wearing her out explained to pt that while understood it was out of our control as we just wanted to get him where he could get the best care, after providing education to the pt he verbalized understanding
[2025-03-12] MEDS: NICOTINE 14 PATCH 14 MG TOP (01:40)
[2025-03-12 06:19] LABS: PTT Partial Thromboplastin Tim 87 SECONDS (25.1-36.5)
[2025-03-12] MEDS: MORPHINE 4 MG/ML INJ IV (06:47)
[2025-03-12 08:58] LABS: Troponin I 0.080 ng/mL (0.01-0.034)
--- NOTE | 2025-03-12 08:59 | PC.NURSE ---
Pt able to walk on own from RM 2 to RM 12. Pt denies any CP. States he is eager to be transported
[2025-03-12] MEDS: MORPHINE 4 MG/ML INJ 2 MG IV (09:25)
[2025-03-12] MEDS: ONDANSETRON 4 MG/2 ML INJ IV (09:37)
--- NOTE | 2025-03-12 10:53 | PC.NURSE ---
Pt states being hungry. Pt reports fruatration with the transfer process but understands we have no control over this.
[2025-03-12] MEDS: MORPHINE 2 MG/ML INJ IV (12:47)
[2025-03-12 13:03] LABS: PTT Partial Thromboplastin Tim 53 SECONDS (25.1-36.5)
== END 2025-03-12 13:09 | disposition short-term general hospital (02) ==
PROVIDERS: Emergency Medicine; Emergency Provider Emergency Medicine; PCP Family Medicine
DX: I21.9 Acute myocardial infarction, unspecified (principal); I10 Essential (primary) hypertension; Z95.5 Presence of coronary angioplasty implant and graft; Z86.79 Personal history of other diseases of the circulatory system; I25.2 Old myocardial infarction; I44.4 Left anterior fascicular block
CPT/HCPCS: 36415; 71045; 80053; 82550; 83690; 83735; 83880; 84484; 85025; 85610; 85730; 93005; 93010; 96365; 96375; 96376; 99284; 99291; J1644; J2270; J2272; J2405